=== PATIENT | female | born 1940 | race Hispanic/Latino ===

== ENCOUNTER 2016-06-08 10:18 | Outpatient (CLI) | payer MEDICARE ==
[2016-06-08] MEDS ORDERED: NACL ONE (11:11)
[2016-06-08 11:26] LABS: Blood Urea Nitrogen 20 mg/dL (7-17)
--- NOTE | 2016-06-08 14:26 | Cat Scan Report ---
CT abdomen and pelvis with and without contrast. Transverse images are obtained from lower chest to the ischium prior to and after intravenous contrast. No oral contrast administered. Sagittal and coronal 2-D reformatted images included. The visualized lungs are unremarkable. There is a small nonreducible hiatus hernia. The abdominal organs are unremarkable. There is a small calculus in the upper pole of the right kidney and a 5 mm calculus contiguous with a 2 mm calculus in the lower pole collecting system. No renal mass and no hydronephrosis. There is mild irregularity of the renal contour laterally consistent with slight scarring. There is a small calculus in the superior left kidney and 2 pole calculi measuring 5 and 7.6 mm respectively. No hydronephrosis. Slightly patulous renal pelvis and proximal ureter. No renal mass but also slight irregularity of the renal contour laterally consistent with scarring. No evidence of ureteral or bladder calculus noted. It is of note however that on the delayed images the right ureter contains contrast but not the left. There is some contrast mixture in the bladder. The unopacified bowel and mesentery appear normal. The abdominal aorta is normal in size and contour. Diffuse mural atheromatous changes are noted.Sections through the pelvis demonstrate unremarkable reproductive organs. Impressions: 1. Bilateral nonobstructing renal calculi. 2. Bilateral mild renal scarring. 3. Small hiatus hernia.
== END 2016-06-08 10:19 | disposition home or self-care (01) ==
LOC: CT 10:18
PROVIDERS: ATTEND Urology
DX: R31.1 Benign essential microscopic hematuria (principal); K44.9 Diaphragmatic hernia without obstruction or gangrene; N20.0 Calculus of kidney
CPT/HCPCS: 36415; 74178; 82565; 84520; Q9967

== ENCOUNTER 2016-07-29 12:08 | Outpatient (CLI) | payer MEDICARE ==
--- NOTE | 2016-07-29 14:23 | XRay Report ---
ABDOMEN RADIOGRAPHS INDICATION: Calculus of kidney. COMPARISON: 06/08/2016 CT. FINDINGS: Frontal abdominal radiographs demonstrate nonobstructive bowel gas pattern without definite pneumatosis or pneumoperitoneum. Small bilateral renal calculi, known by prior CT, not well identified radiographically. Few vascular calcifications noted in the left upper quadrant and the left hemipelvis. Right hemidiaphragm slightly elevated. Some extrinsic clothing artifacts. Demineralized bones with mild lumbar levoscoliosis apex about L3-L4. CONCLUSION: No acute abdominal radiographic abnormality with bilateral renal calculi known by prior CT not well identified plain radiographically. Thank you for the opportunity to participate in this patient's care.
== END 2016-07-29 12:09 | disposition home or self-care (01) ==
LOC: XRAY 12:08
PROVIDERS: ATTEND Urology
DX: N20.0 Calculus of kidney (principal); J98.6 Disorders of diaphragm; M41.86 Other forms of scoliosis, lumbar region
CPT/HCPCS: 74000

== ENCOUNTER 2016-10-21 19:25 | Emergency (ER) | payer MEDICARE ==
[2016-10-21 20:43] LABS: Bacteria,Urine 1+ /HPF (Negative); Bilirubin,Urine NEG (Negative); Blood,Urine LG (Negative); Ketones,Urine NEG (Negative); Leukocyte Esterase,Urine LG (Negative); Mucus,Urine FEW /HPF; Nitrite,Urine NEG (Negative); Urobilinogen,Urine < 2.0 mg/dL (<2.0)
[2016-10-21] MEDS ORDERED: NACL 0.9% 1000 ML 1,000 ML IV ONE (20:44)
[2016-10-21] MEDS ORDERED: DILAUDID IV ONE ×2 (20:44→22:26)
[2016-10-21] MEDS ORDERED: TORADOL IV ONE (20:44)
[2016-10-21] MEDS ORDERED: ZOFRAN IV ONE (20:44)
--- NOTE | 2016-10-21 20:52 | Emergency Department Report ---
ED Abdominal Pain HPI - General Chief Complaint: Abdominal Pain Stated Complaint: VOMITING, SIDE PAIN Time Seen by Provider: 10/21/16 20:37 Source: patient Mode of arrival: Ambulatory Limitations: No Limitations - History of Present Illness Initial Comments: 76-year-old female with a past medical history diabetes, hypertension and kidney stones requiring lithotripsy presents to the hospital complaining of left flank pain 1 week. Pain is intermittent, rated moderate to severe in intensity, with palpation, no alleviating factors. Patient unable to characterize pain stating "it just hurts". Patient developed multiple episodes of nausea and vomiting today. PMD:: Dr. Julian , urologist: Dr. Lei, history cystoscopy in the past for urinary incontinence. Patient apparently drinks vinegar with water for blood pressure control - Related Data Home Medications Medication Instructions Recorded Confirmed Last Taken Metoprolol [Lopressor TAB] 50 mg PO DAILY 11/19/12 08/05/15 Unknown metFORMIN [Glucophage] 500 mg PO BID 11/19/12 08/05/15 Unknown Previous Rx's Medication Instructions Recorded Last Taken Type HYDROcodone/APAP 5-325 [[place] 1 each PO Q6HR PRN #10 tablet 08/05/15 Unknown Rx 5/325] Ondansetron [Zofran Odt] 4 mg PO Q8H PRN #10 tab.rapdis 08/05/15 Unknown Rx Cephalexin [Keflex] 500 mg PO Q12HR #14 cap 10/22/16 Unknown Rx HYDROcodone/APAP 7.5-325 [[place] 1 each PO Q6HR PRN #20 tablet 10/22/16 Unknown Rx 7.5/325] Ibuprofen [Motrin] 800 mg PO Q8HR PRN #30 tablet 10/22/16 Unknown Rx Ondansetron [Zofran Odt] 4 mg PO Q8HR PRN #20 tab.rapdis 10/22/16 Unknown Rx Allergies Allergy/AdvReac Type Severity Reaction Status Date / Time No Known Allergies Allergy Unverified 11/19/12 14:52 ED Review of Systems ROS: Stated complaint: VOMITING, SIDE PAIN Other details as noted in HPI Comment: All other systems reviewed and negative Other: Constitutional: No fevers chills Eyes: No eye pain visual changes ENT: No ear pain or throat pain Neck: Denies pain Respiratory: Denies cough wheezing shortness of breath Cardiovascular: Denies chest pain, palpitations, syncope GI: As per HPI : Denies dysuria, urinary frequency, or urgency, hematuria Musculoskeletal: Left flank pain Skin: Denies rash, lesions, erythema Neurologic: Denies headache, numbness, weakness Psychiatric: Denies suicidal ideation, hallucinations ED Past Medical Hx - Past Medical History Previous Medical History?: Yes Hx Hypertension: Yes Hx Diabetes: Yes Hx Kidney Stones: Yes - Surgical History Past Surgical History?: Yes Additional Surgical History: left knee replacement 2009. Lithotripsy in the past - Social History Smoking Status: Never Smoker Substance Use Type: None - Medications Home Medications: Home Medications Medication Instructions Recorded Confirmed Last Taken Type Metoprolol [Lopressor TAB] 50 mg PO DAILY 11/19/12 08/05/15 Unknown History metFORMIN [Glucophage] 500 mg PO BID 11/19/12 08/05/15 Unknown History HYDROcodone/APAP 5-325 [[place] 1 each PO Q6HR PRN #10 tablet 08/05/15 Unknown Rx 5/325] Ondansetron [Zofran Odt] 4 mg PO Q8H PRN #10 tab.rapdis 08/05/15 Unknown Rx Cephalexin [Keflex] 500 mg PO Q12HR #14 cap 10/22/16 Unknown Rx HYDROcodone/APAP 7.5-325 [[place] 1 each PO Q6HR PRN #20 tablet 10/22/16 Unknown Rx 7.5/325] Ibuprofen [Motrin] 800 mg PO Q8HR PRN #30 tablet 10/22/16 Unknown Rx Ondansetron [Zofran Odt] 4 mg PO Q8HR PRN #20 tab.rapdis 10/22/16 Unknown Rx ED Physical Exam - General Limitations: No Limitations - Other Other exam information: General: No limitations, patient is alert in no acute distress Head exam: Atraumatic, normocephalic Eyes exam: Normal appearance, pupils equal reactive to light, extraocular movements intact ENT: Moist mucous membrane, normal oropharynx Neck exam: Normal inspection, full range of motion, no meningismus nontender Respiratory exam: Clear to auscultation bilateral, no wheezes, rales, crackles Cardiovascular: Normal rate and rhythm, normal heart sounds Abdomen: Soft, nondistended, and left lateral abdominal tenderness, with normal bowel sounds, no rebound, or guarding Extremity: Full range of motion normal inspection no deformity Back: Normal Inspection, full range of motion, left CVA/flank tenderness Neurologic: Alert, oriented x3, cranial nerves intact, no motor or sensory deficit Psychiatric: normal affect, normal mood Skin: Warm, dry, intact ED Course Vital Signs 10/21/16 10/21/16 10/21/16 19:45 21:18 22:22 Temperature 98.4 F Pulse Rate 83 62 62 Respiratory 18 18 18 Rate Blood Pressure 191/118 Blood Pressure 173/100 166/84 [Left] O2 Sat by Pulse 98 100 100 Oximetry - Reevaluation(s) Reevaluation #1: 10/21/16 21:04 Medications for pain, IV fluids, and nausea ordered 10/22/16 00:43 Pain and BP improved after meds above - Consultations Consultation #1: 10/21/16 23:55 Patient discussed with urologist Dr. Lopez States he can see patient office tomorrow if her pain is controlled she does not have a fever significant leukocytosis. ED Medical Decision Making - Lab Data Result diagrams: 10/21/16 21:04 10/21/16 21:04 Lab Results 10/21/16 10/21/16 10/21/16 Range/Units 20:30 21:04 21:04 WBC 8.3 (4.5-11.0) K/mm3 RBC 4.20 (3.65-5.03) M/mm3 Hgb 11.9 (10.1-14.3) gm/dl Hct 36.3 (30.3-42.9) % MCV 86 (79-97) fl MCH 28 (28-32) pg MCHC 33 (30-34) % RDW 13.9 (13.2-15.2) % Plt Count 134 L (140-440) K/mm3 Lymph % (Auto) 12.5 L (13.4-35.0) % [place] % (Auto) 6.5 (0.0-7.3) % Eos % (Auto) 0.9 (0.0-4.3) % Baso % (Auto) 0.3 (0.0-1.8) % Lymph # 1.0 L (1.2-5.4) K/mm3 [place] # 0.5 (0.0-0.8) K/mm3 Eos # 0.1 (0.0-0.4) K/mm3 Baso # 0.0 (0.0-0.1) K/mm3 Seg Neutrophils % 79.8 H (40.0-70.0) % Seg Neutrophils # 6.6 (1.8-7.7) K/mm3 Sodium 142 (137-145) mmol/L Potassium 3.5 L (3.6-5.0) mmol/L Chloride 102.1 (98-107) mmol/L Carbon Dioxide 24 (22-30) mmol/L Anion Gap 19 mmol/L BUN 20 H (7-17) mg/dL Creatinine 1.0 (0.7-1.2) mg/dL Estimated GFR 54 ml/min BUN/Creatinine Ratio 20.00 % Glucose 230 H (65-100) mg/dL Calcium 8.6 (8.4-10.2) mg/dL Total Bilirubin 0.70 (0.1-1.2) mg/dL AST 15 (5-40) units/L ALT 9 (7-56) units/L Alkaline Phosphatase 89 (35-129) units/L Total Protein 6.9 (6.3-8.2) g/dL Albumin 3.9 (3.9-5) g/dL Albumin/Globulin Ratio 1.3 % Urine Color Yellow (Yellow) Urine Turbidity Cloudy (Clear) Urine pH 5.0 (5.0-7.0) Ur Specific [place] 1.021 (1.003-1.030) Urine Protein 100 mg/dl (Negative) mg/dL Urine Glucose (UA) 50 (Negative) mg/dL Urine Ketones Neg (Negative) mg/dL Urine Blood Lg (Negative) Urine Nitrite Neg (Negative) Urine Bilirubin Neg (Negative) Urine Urobilinogen < 2.0 (<2.0) mg/dL Ur Leukocyte Esterase Lg (Negative) Urine WBC (Auto) 87.0 H (0.0-6.0) /HPF Urine RBC (Auto) 141.0 (0.0-6.0) /HPF U Epithel Cells (Auto) 6.0 (0-13.0) /HPF Urine Bacteria (Auto) 1+ (Negative) /HPF Calcium Oxalate Crystal 1+ Urine Mucus Few /HPF - Radiology Data Radiology results: report reviewed CT abdomen and pelvis noncontrast. 7.7 cm distal left ureteral calculus with moderate hydronephrosis. Multiple additional nonobstructing bilateral renal calculi - Medical Decision Making Patient feeling much better after receiving total 1 of Dilaudid, 1 L normal saline, and 4 Zofran. Pain is controlled. Patient is stable for follow-up with urologist tomorrow - Differential Diagnosis UTI, renal colic, diverticulitis, dissection Critical Care Time: No Critical care attestation.: If time is entered above; I have spent that time in minutes in the direct care of this critically ill patient, excluding procedure time. ED Disposition Clinical Impression: Renal colic on left side, UTI (urinary tract infection) Disposition: TO HOME OR SELFCARE Is pt being admited?: No Does the pt Need Aspirin: No Condition: Stable Instructions: Renal Colic (ED), Urinary Tract Infection in Women (ED) Additional Instructions: Take the medication as prescribed. Go to your urologist office tomorrow for further treatment. Take a copy of the CAT scan provided. Return if symptoms worsen. Prescriptions: Cephalexin [Keflex] 500 mg PO Q12HR #14 cap HYDROcodone/APAP 7.5-325 [[place] 7.5/325] 1 each PO Q6HR PRN #20 tablet PRN Reason: Pain Ibuprofen [Motrin] 800 mg PO Q8HR PRN #30 tablet PRN Reason: Pain Ondansetron [Zofran Odt] 4 mg PO Q8HR PRN #20 tab.rapdis PRN Reason: Nausea And Vomiting Referrals: CLAUDY TYLER MD [Staff Physician] - 10/22/16 Time of Disposition: 00:43
[2016-10-21 21:35] LABS: Basophils % (Auto) 0.3 % (0.0-1.8); Eosinophils % (Auto) 0.9 % (0.0-4.3); Hematocrit 36.3 % (30.3-42.9); Hemoglobin 11.9 gm/dl (10.1-14.3); Mean Corpuscular HGB Conc 33 % (30-34); Mean Corpuscular Hemoglobin 28 pg (28-32); Mean Corpuscular Volume 86 fl (79-97); Platelet Count 134 K/mm3 (140-440); Red Cell Distribution Width 13.9 % (13.2-15.2); White Blood Count 8.3 K/mm3 (4.5-11.0)
[2016-10-21 21:40] LABS: Albumin 3.9 g/dL (3.9-5); Albumin/Globulin Ratio 1.3 %; Bilirubin,Total 0.7 mg/dL (0.1-1.2); Calcium 8.6 mg/dL (8.4-10.2); Chloride 102.1 mmol/L (98-107); Potassium 3.5 mmol/L (3.6-5.0); Total Protein 6.9 g/dL (6.3-8.2)
--- NOTE | 2016-10-21 21:52 | Cat Scan Report ---
FINAL REPORT EXAM: CT ABDOMEN PELVIS WO CON HISTORY: left flank pain, hx of kidney stones TECHNIQUE: CT abdomen and pelvis without contrast PRIORS: None. FINDINGS: No acute abnormality identified in the lung bases. No focal abnormality identified within the liver parenchyma. The spleen demonstrates normal size and attenuation. No pancreatic abnormalities seen. Right kidney demonstrates no evidence for hydronephrosis. There are 5 nonobstructing right renal calculi largest 0.4 centimeters There is moderate to severe left hydronephrosis. Multiple left renal calculi present the largest 0.9 centimeters. Within distal right ureter at the level of the mid pelvis there is a 0.77 centimeter obstructing calculus. The adrenal glands are unremarkable. Abdominal aorta is normal in caliber. No pathologically enlarged lymph nodes are identified. No signs of free fluid or free air No evidence of small bowel dilatation. No evidence of colonic dilatation. No pericolonic inflammatory change seen. IMPRESSION: 0.77 centimeter distal left ureteral calculus with moderate hydronephrosis Multiple additional nonobstructing bilateral renal calculi
[2016-10-21] MEDS ORDERED: ROCEPHIN/NS 1 GM/50 ML 1 GM/50 ML BAG IV ONE (22:24)
[2016-10-22 00:44] VITALS: BP 118/79
== END 2016-10-22 01:17 | disposition home or self-care (01) ==
LOC: ED 19:25
DX: N23 Unspecified renal colic (principal); N39.0 Urinary tract infection, site not specified; I10 Essential (primary) hypertension; E11.9 Type 2 diabetes mellitus without complications
CPT/HCPCS: 36415; 74176; 80053; 81001; 85025; 87086; 96361; 96365; 96375; 96376; 99284; J0696; J1170; J1885; J2405; J7030

== ENCOUNTER 2016-10-27 13:07 | Day surgery (SDC) | payer MEDICARE ==
[~2016-10-27 13:07] MED LIST: ANCEF/STERILE WATER 2 GM/20 ML 2 GM/20 ML SYRINGE IV NR; OMNIPAQUE (300 MG) IV ONE; WATER FOR IRRIG STERILE IR ONE
--- NOTE | 2016-10-27 14:23 | Anesthesia Consultation ---
Anesthesia Consult and Med Hx Date of service: 10/27/16 - Airway ROM Head & Neck: Adequate Mental/Hyoid Distance: Adequate Mallampati Class: Class II Intubation Access Assessment: Probably Good - Pulmonary Exam CTA: Yes - Cardiac Exam Cardiac Exam: RRR - Pre-Operative Health Status ASA Pre-Surgery Classification: ASA3 Proposed Anesthetic Plan: General - Cardiovascular System Hx Hypertension: Yes - Endocrine Hx Renal Disease: Yes (stones) Hx Insulin Dependent Diabetes: Yes
--- NOTE | 2016-10-27 14:25 | Anesthesia Day of Surgery ---
Anesthesia Day of Surgery - Day of Surgery Patient Examined: Yes Patient H&P Reviewed: Yes Patient is NPO: Yes Beta Blockers: Yes (last dose 3 days ago. Pulse 65)
[2016-10-27] MEDS ORDERED: NACL 0.9% 1000 ML 1,000 ML IV SCH (15:00)
[2016-10-27] MEDS ORDERED: ZOFRAN IV NR (15:00)
[2016-10-27] MEDS ORDERED: PEPCID IV NR (15:00)
[2016-10-27] MEDS ORDERED: NACL BACTERIOSTATIC INFILTRATI ONE (15:03)
[2016-10-27] MEDS ORDERED: DIPRIVAN 10 MG/ML IV ONE (16:00)
[2016-10-27] MEDS ORDERED: SUBLIMAZE ONE (16:00)
[2016-10-27] MEDS ORDERED: PROAIR IH ONE (16:47)
[2016-10-27] MEDS ORDERED: WATER FOR IRRIG STERILE IR ONE (16:56)
[2016-10-27] MEDS ORDERED: NEO SYNEPHRINE/NS Syringe(OR USE) IV ONE (17:00)
[2016-10-27] MEDS ORDERED: OMNIPAQUE (300 MG) IV ONE (17:03)
[2016-10-27] MEDS ORDERED: ROBINUL ONE (17:10)
[2016-10-27] MEDS ORDERED: DECADRON ONE (17:11)
[2016-10-27] MEDS ORDERED: ZOFRAN ONE (17:11)
--- NOTE | 2016-10-27 17:18 | Short Stay Summary ---
Short Stay Documentation Date of service: 10/27/16 - History H&P: obtained from office - Allergies and Medications Current Medications: Allergies No Known Allergies Allergy (Unverified 11/19/12 14:52) Home Medications Medication Instructions Recorded Confirmed Last Taken Type Metoprolol [Lopressor TAB] 50 mg PO DAILY 11/19/12 10/27/16 10/24/16 History HYDROcodone/APAP 7.5-325 [[place] 1 each PO Q6HR PRN #20 tablet 10/22/16 10/27/16 10/26/16 Rx 7.5/325] Ibuprofen [Motrin] 800 mg PO Q8HR PRN #30 tablet 10/22/16 10/27/16 10/26/16 Rx Ondansetron [Zofran Odt] 4 mg PO Q8HR PRN #20 tab.rapdis 10/22/16 10/27/1610/26 Rx Ciprofloxacin HCl [Ciprofloxacin 500 mg PO BID 10/27/16 10/27/16 10/26/16 History TAB] Insulin Detemir [Levemir Flextouch] 12 units SUB-Q DAILY 10/27/16 10/27/1610/26 History Active Medications Famotidine (Pepcid) 20 mg IV PREOP NR Stop: 10/27/16 23:59 Last Admin: 10/27/16 15:17 Dose: 20 mg Sodium Chloride (Nacl 0.9% 1000 Ml) 1,000 mls @ 125 mls/hr IV DIRECT HUSAM Last Admin: 10/27/16 15:10 Dose: 125 mls/hr Ondansetron HCl (Zofran) 4 mg IV PREOP NR Stop: 10/27/16 23:59 Last Admin: 10/27/16 15:19 Dose: 4 mg - Brief post op/procedure progress note Date of procedure: 10/27/16 Pre-op diagnosis: left ureteral stone Post-op diagnosis: other (bladder stone) Procedure: cysto, rpg, left ureteroscopy, stent external string Anesthesia: GETA Surgeon: BRANDI KRAUSE Estimated blood loss: none Pathology: none Condition: stable - Hospital course Hospital course: cipro,norco,zofran, post op info on chart give stone to pt - Disposition Condition at discharge: Stable Disposition: DC-01 TO HOME OR SELFCARE Short Stay Discharge Plan Follow up with: PRIMARY CARE, [Primary Care Provider] - 7 Days
--- NOTE | 2016-10-27 18:07 | Post Anesthesia Evaluation ---
- Post Anesthesia Evaluation Patient Participated: Yes Airway Patent: Yes Stable Respiratory Function: Yes Temp > 96.8F: Yes Pain Manageable: Yes Adequeate Hydration: Yes Anesthesia Complications: No
--- NOTE | 2016-10-27 21:13 | Operative Report ---
PREOPERATIVE DIAGNOSIS: Left 7 mm distal ureteral stone. POSTOPERATIVE DIAGNOSIS: Left 7 mm distal ureteral stone, bladder stone. PROCEDURE: Cystoscopy, bilateral retrograde pyelograms, left ureteroscopy, double-J stent (6 German 24 cm with an external string), removal of bladder stones. SURGEON: Damian Cornejo MD ANESTHESIA: General. ESTIMATED BLOOD LOSS: Minimal. FLUIDS: Crystalloid. COMPLICATIONS: No complications. INDICATIONS: This patient is a 76-year-old female who was originally seen by Dr. Freeman, however, I saw her in his absence. She has CT of abdomen and pelvis on 10/21/2016, which revealed a 7 mm distal stone. She presents now for surgical intervention. She also gives a history of bilateral pelvic pain. DESCRIPTION OF PROCEDURE: The patient was taken to the operative suite, placed in a supine position. After adequate general anesthesia, placed in a dorsal lithotomy position, prepped and draped in a sterile fashion. Pancystourethroscopy was performed with a 22 German Storz cystoscope. There were obvious fragments in the bladder, two biggest fragments were removed with the alligator grasper. The stones were removed, one will be given to the patient and I will keep one. Bilateral retrograde pyelograms, right side normal, left side still some narrowing of the distal ureter. Two 0.05 Glidewires were placed , left collecting system. Ureteroscopy up to the renal pelvis. No stone; however, there was some edema. A 6-German 24 cm double-J stent with an external string was left indwelling. The patient was extubated and taken to recovery room. She will go home on [place], [place], [place], and follow up in the office. JOB# [id number] [facility]/[place]
[2016-10-27 23:33] VITALS: BP 142/75
--- NOTE | 2016-10-28 09:38 | Fluoroscopy Report ---
Retrograde pyelogram: Left ureteral calculus. The noncontrasted images fail to identify any urinary tract calculus. Injection of contrast into the Juan right system demonstrates unremarkable ureter and intrarenal collecting system. Injection on the left is likewise unremarkable. A ureteroscope was introduced with wire is passed into the renal pelvis. A left internal stent was left in place.
== END 2016-10-27 18:45 | disposition home or self-care (01) ==
LOC: OR 13:07
PROVIDERS: ATTEND Urology
DX: N20.1 Calculus of ureter (principal); N21.0 Calculus in bladder; N13.5 Crossing vessel and stricture of ureter without hydronephrosis; E11.9 Type 2 diabetes mellitus without complications; I10 Essential (primary) hypertension; Z79.899 Other long term (current) drug therapy; Z79.4 Long term (current) use of insulin
CPT/HCPCS: 52318; 52332; 74420; 82962; A4217; C1758; C1769; C2617; J0690; J2370; J2405; J2704; J3010; J7030; Q9967; J1100

== ENCOUNTER 2018-03-22 16:47 | Inpatient (IN) | payer MEDICARE ==
[2018-03-22] MEDS ORDERED: SUBLIMAZE IV ONE (17:56)
[2018-03-22] MEDS ORDERED: NACL 0.9% 500 ML 500 ML IV ONE (17:56)
--- NOTE | 2018-03-22 17:58 | Emergency Department Report ---
ED General Adult HPI - General Chief complaint: Extremity Injury, Lower Stated complaint: LT LEG PAIN/FALL Time Seen by Provider: 03/22/18 17:48 Source: patient, EMS (verbal report received from EMS.ems notes not available at time of chart dictation), RN notes reviewed Mode of arrival: Stretcher Limitations: Physical Limitation - History of Present Illness Initial comments: This is a 78-year-old female who is not known to this provider previously. Her past history includes hypertension and diabetes. Patient reports being in her usual state of health, when she got dizzy, and fell onto her left hip. She did not hit her head, she did not hit her neck. Prior to the event, she reports no pain. She denies DVT, pulmonary embolus risk factors. She has left-sided femur pain. Her pain is sharp and aching, does not radiate anywhere, increases with palpation, and decreases with rest. -: Sudden Location: left, lower extremity Radiation: non-radiation Quality: sharp Improves with: rest Worsens with: movement Associated Symptoms: malaise, weakness. denies: confusion, chest pain, cough, diaphoresis, fever/chills, headaches, loss of appetite, nausea/vomiting, rash, seizure, shortness of breath, syncope - Related Data Home Medications Medication Instructions Recorded Confirmed Last Taken Metoprolol [Lopressor TAB] 50 mg PO DAILY 11/19/12 03/22/18 10/24/16 Insulin Detemir [Levemir Flextouch] 12 units SUB-Q HS 10/27/16 03/22/18 10/26/16 Previous Rx's Medication Instructions Recorded Last Taken Type HYDROcodone/APAP 7.5-325 [[place] 1 each PO Q6HR PRN #20 tablet 10/22/16 10/26/16 Rx 7.5/325] traMADol [Ultram] 50 mg PO Q6HR PRN #20 tablet 01/31/18 Unknown Rx Allergies Allergy/AdvReac Type Severity Reaction Status Date / Time No Known Allergies Allergy Unverified 11/19/12 14:52 ED Review of Systems ROS: Stated complaint: LT LEG PAIN/FALL Other details as noted in HPI Constitutional: malaise, other Eyes: denies: eye discharge, vision change ENT: denies: epistaxis Respiratory: denies: cough Cardiovascular: other (dizziness). denies: chest pain Gastrointestinal: denies: vomiting Musculoskeletal: arthralgia, myalgia Skin: denies: lesions Neurological: weakness Psychiatric: anxiety ED Past Medical Hx - Past Medical History Hx Hypertension: Yes Hx Diabetes: Yes Hx Renal Disease: Yes (stones) Hx Arthritis: Yes Hx Kidney Stones: Yes - Surgical History Additional Surgical History: left knee replacement 2009. Lithotripsy in the past - Social History Smoking Status: Never Smoker Substance Use Type: None - Medications Home Medications: Home Medications Medication Instructions Recorded Confirmed Last Taken Type Metoprolol [Lopressor TAB] 50 mg PO DAILY 11/19/12 03/22/18 10/24/16 History HYDROcodone/APAP 7.5-325 [[place] 1 each PO Q6HR PRN #20 tablet 10/22/16 03/22/18 10/26/16 Rx 7.5/325] Insulin Detemir [Levemir Flextouch] 12 units SUB-Q HS 10/27/16 03/22/18 10/26/16 History traMADol [Ultram] 50 mg PO Q6HR PRN #20 tablet 01/31/18 03/22/18 Unknown Rx ED Physical Exam - General Limitations: Physical Limitation General appearance: alert, anxious, in distress - Head Head exam: Present: atraumatic, normocephalic - Eye Eye exam: Present: normal appearance, PERRL, EOMI, other (visual acuity intact to finger counting, color perception, reading at a close distance). Absent: nystagmus - ENT ENT exam: Present: normal exam, normal orophraynx, mucous membranes moist, normal external ear exam - Neck Neck exam: Present: normal inspection, full ROM. Absent: tenderness, meningismus - Respiratory Respiratory exam: Present: normal lung sounds bilaterally. Absent: respiratory distress - Cardiovascular Cardiovascular Exam: Present: regular rate, normal rhythm, normal heart sounds. Absent: bradycardia, tachycardia, irregular rhythm, systolic murmur, diastolic murmur, rubs, gallop - GI/Abdominal GI/Abdominal exam: Present: soft. Absent: distended, tenderness, guarding, rebound, rigid, pulsatile mass - Extremities Exam Extremities exam: Present: pedal edema, other (2+ pulses in the bilateral upper extremities and lower extremities. The pelvis is stable. There is proximal left femur tenderness. The left lower extremity is shortened and externally rotated. Full range of motion in the bilateral ankles. Left knee range of motion limited secondary to left hip pain. There is no knee tenderness.). Absent: full ROM, tenderness - Back Exam Back exam: Present: normal inspection, full ROM. Absent: paraspinal tenderness, vertebral tenderness - Neurological Exam Neurological exam: Present: alert, oriented X3, other (Extraocular movements intact. Tongue midline. No facial droop. Facial sensation intact to light to uch in the V1, V2, V3 distribution bilaterally. 5 and 5 strength in 4 extremities.. Sensation is intact to light touch in 4 extremities.). Absent: motor sensory deficit - Psychiatric Psychiatric exam: Present: anxious - Skin Skin exam: Present: warm, dry, intact, normal color. Absent: rash ED Course Vital Signs 03/22/18 03/22/18 03/22/18 18:01 19:10 19:42 Temperature 98.1 F Pulse Rate 78 104 H Respiratory 17 18 16 Rate Blood Pressure 229/116 Blood Pressure 203/103 [Left] O2 Sat by Pulse 98 100 Oximetry 03/22/18 03/22/18 03/22/18 19:46 20:16 20:46 Temperature Pulse Rate 103 H 118 H 105 H Respiratory 14 18 16 Rate Blood Pressure 203/103 189/80 180/91 Blood Pressure [Left] O2 Sat by Pulse Oximetry 03/22/18 03/22/18 03/22/18 21:00 21:16 21:20 Temperature Pulse Rate 106 H 118 H Respiratory 12 22 Rate Blood Pressure 165/92 165/92 165/92 Blood Pressure [Left] O2 Sat by Pulse Oximetry - Reevaluation(s) Reevaluation #1: 03/22/18 20:07 Differential diagnosis, including but not limited to: Orthostasis, vagal event, dehydration, pneumonia, urinary tract infection, structural cardiac disease, transient ischemic attack, left femur fracture. Assessment and plan: 78-year-old female with radiographic evidence of proximal left femur fracture, distally neurovascularly intact, with no reported history of head or neck trauma, with transient "dizziness." Has a [place] Coma Scale of 15. Has an NIH score of 0. Has no midline cervical spine tenderness. Laboratory studies show mild hypomagnesemia. We will treat the patient's pain aggressively with intravenous fentanyl, followed by ketamine, 0.3 mg/kg IV. Discussed with orthopedics, Dr. Javed, who agrees to follow for left femur fracture. Case is presented to hospital medicine nurse practitioner, who has accepted the patient on behalf of the hospital physician, Dr. Gorge Whitmore Elevated blood pressure reviewed and appreciated, likely secondary to pain. Hyperglycemia also appreciated, I will defer to the inpatient team to further evaluate and manage these. 03/22/18 21:23 Reevaluation #2: 03/22/18 22:[address] scan of the brain is negative for acute disease. ED Medical Decision Making - Lab Data Result diagrams: 03/22/18 18:05 03/22/18 18:05 Vital Signs 03/22/18 03/22/18 03/22/18 18:01 19:10 19:42 Temperature 98.1 F Pulse Rate 78 104 H Respiratory 17 18 16 Rate Blood Pressure 229/116 Blood Pressure 203/103 [Left] O2 Sat by Pulse 98 100 Oximetry - EKG Data -: EKG Interpreted by Me Rate: tachycardia - EKG Data 03/22/18 20:06 Sinus tachycardia, 104 bpm, borderline left axis deviation, premature ventricular contraction, QTC prolonged, motion artifact, abnormal EKG, not consistent with an ST elevation myocardial infarction. - Radiology Data Radiology results: pending, image reviewed interpreted by me: X-ray of the chest is unremarkable. X-ray of the left femur, and pelvis demonstrated proximal comminuted and impacted and displaced left femur fracture. Pelvic ring appears to be unremarkable. Critical care attestation.: If time is entered above; I have spent that time in minutes in the direct care of this critically ill patient, excluding procedure time. ED Disposition Clinical Impression: Hypomagnesemia, Dizziness Femur fracture, left Qualifiers: Encounter type: initial encounter Femur location: unspecified portion of femur Fracture type: closed Disposition: -09 OP ADMIT IP TO THIS HOSP Is pt being admited?: Yes Does the pt Need Aspirin: No (aspirin will be held given underlying femur fracture, and uncertain operative plan of orthopedic team.) Condition: Fair
[2018-03-22 18:23] LABS: Basophils % (Auto) 0.2 % (0.0-1.8); Eosinophils % (Auto) 0.6 % (0.0-4.3); Hematocrit 38.3 % (30.3-42.9); Hemoglobin 12.9 gm/dl (10.1-14.3); Lymphocytes # (Auto) 0.9 K/mm3 (1.2-5.4); Lymphocytes % (Auto) 11.5 % (13.4-35.0); Mean Corpuscular HGB Conc 34 % (30-34); Mean Corpuscular Volume 86 fl (79-97); Monocytes # (Auto) 0.4 K/mm3 (0.0-0.8); Monocytes % (Auto) 4.8 % (0.0-7.3); Platelet Count 171 K/mm3 (140-440); Red Blood Count 4.47 M/mm3 (3.65-5.03); Red Cell Distribution Width 13.6 % (13.2-15.2)
[2018-03-22 18:34] LABS: INR 1.02 (0.87-1.13)
[2018-03-22 18:48] LABS: Creatine Kinase MB 1.8 ng/mL (0.0-4.0)
[2018-03-22 18:51] LABS: Alanine Aminotransferase 9 units/L (7-56); Albumin 4.2 g/dL (3.9-5); BUN/Creatinine Ratio 21; Blood Urea Nitrogen 17 mg/dL (7-17); Calcium 9.2 mg/dL (8.4-10.2); Hemolysis Index 23
[2018-03-22] MEDS ORDERED: MAGNESIUM SULFATE 2GM/50ML 2 GM/50 ML BAG IV ONE (18:59)
[2018-03-22] MEDS ORDERED: KETAMINE HCL IV ONE ×2 (20:00→20:10)
--- NOTE | 2018-03-22 20:45 | History and Physical Report ---
History of Present Illness Chief complaint: I fell and hurt my hip History of present illness: 78 YO Female with HTN, DM,, OA, Obesity presents to ED for evaluation. Pt stats that she was in her usual state of health, when she got dizzy, and lost her balance and subsequently fell onto her left hip. Pt states that she felt immediate pain and was unable to stand. Pt states that pain is 10/10 and localized to the left hip. EMS notified, and patient ransported to [facility] for further care and evaluation. Pt seen and evaluated in ED. Pt found to have Left Hip Fracture. Ortho Surgery consulted in ED. Patient pending surgical intervention. Pt denies fever, chills, CP, Palpitations, NVD, Head trauma, vertigo, seizure, loss of consciousness, weakness, slurred speech, blurred vision, vision loss, or recent ill contacts. Pt admitted to surgical floor. Past History Past Medical History: arthritis, diabetes, hypertension Past Surgical History: total knee replacement Social history: , lives with family. denies: smoking, alcohol abuse, prescription drug abuse Family history: diabetes, hypertension Medications and Allergies Allergies Allergy/AdvReac Type Severity Reaction Status Date / Time No Known Allergies Allergy Unverified 11/19/12 14:52 Home Medications Medication Instructions Recorded Confirmed Last Taken Type Metoprolol [Lopressor TAB] 50 mg PO DAILY 11/19/12 03/22/18 10/24/16 History HYDROcodone/APAP 7.5-325 [[place] 1 each PO Q6HR PRN #20 tablet 10/22/16 03/22/18 10/26/16 Rx 7.5/325] Insulin Detemir [Levemir Flextouch] 12 units SUB-Q HS 10/27/16 03/22/18 10/26/16 History traMADol [Ultram] 50 mg PO Q6HR PRN #20 tablet 01/31/18 03/22/18 Unknown Rx Review of Systems Constitutional: no weight loss, no weight gain, no fever Ears, nose, mouth and throat: no ear pain, no ear discharge, no tinnitis, no decreased hearing, no nasal congestion Breasts: no change in shape, no swelling, no mass Cardiovascular: no chest pain, no orthopnea, no palpitations, no rapid/irregular heart beat, no edema Respiratory: no cough, no cough with sputum, no excessive sputum, no hemoptysis Gastrointestinal: constipation, no nausea, no vomiting, no diarrhea Genitourinary Female: no pelvic pain, no flank pain, no menorrhagia, no dysuria Rectal: no pain, no incontinence, no bleeding Musculoskeletal: shooting leg pain, no neck stiffness, no neck pain, no shooting arm pain, no arm numbness/tingling Integumentary: no rash, no pruritis, no redness, no sores Neurological: no head injury, no transient paralysis, no paralysis, no weakness, no parathesias, no vertigo, no headaches, no migraines Psychiatric: no memory loss, no change in sleep habits, no sleep disturbances, no insomnia, no hypersomnia, no difficulties concentrating Endocrine: no cold intolerance, no heat intolerance, no polyphagia, no excessive thirst, no polydipsia Hematologic/Lymphatic: no easy bruising, no easy bleeding Allergic/Immunologic: no urticaria, no allergic rhinitis, no wheezing Exam - Constitutional Vitals: Temp Pulse Resp BP Pulse Ox 98.1 F 104 H 16 203/103 100 03/22/18 18:01 03/22/18 19:42 03/22/18 19:42 03/22/18 19:42 03/22/18 19:10 General appearance: Present: mild distress, obese - EENT Eyes: Present: PERRL ENT: hearing intact, clear oral mucosa - Neck Neck: Present: supple, normal ROM - Respiratory Respiratory effort: normal Respiratory: bilateral: CTA - Cardiovascular Heart Sounds: Present: S1 & S2. Absent: rub, click - Extremities Extremities: pulses symmetrical, No edema Peripheral Pulses: within normal limits - Abdominal General gastrointestinal: Present: soft, non-tender, non-distended, normal bowel sounds Female genitourinary: Present: normal - Integumentary Integumentary: Present: clear, warm, dry - Musculoskeletal Musculoskeletal: gait normal, strength equal bilaterally - Psychiatric Psychiatric: appropriate mood/affect, intact judgment & insight - Neurologic Neurologic: CNII-XII intact, no focal deficits, moves all extremities, no gait normal Results - Labs CBC & Chem 7: 03/22/18 18:05 03/22/18 18:05 Labs: Abnormal lab results 03/22/18 03/22/18 03/22/18 Range/Units 18:05 18:05 18:05 Lymph % (Auto) 11.5 L (13.4-35.0) % Lymph # 0.9 L (1.2-5.4) K/mm3 Seg Neutrophils % 82.9 H (40.0-70.0) % Sodium 134 L (137-145) mmol/L Chloride 93.5 L (98-107) mmol/L Glucose 316 H (65-100) mg/dL POC Glucose (70-105) Magnesium 1.60 L (1.7-2.3) mg/dL 03/22/18 Range/Units 20:27 Lymph % (Auto) (13.4-35.0) % Lymph # (1.2-5.4) K/mm3 Seg Neutrophils % (40.0-70.0) % Sodium (137-145) mmol/L Chloride (98-107) mmol/L Glucose (65-100) mg/dL POC Glucose 298 H (70-105) Magnesium (1.7-2.3) mg/dL Assessment and Plan - Patient Problems (1) Femur fracture, left Current Visit: Yes Status: Acute Qualifiers: Encounter type: initial encounter Femur location: lesser trochanter Fracture type: closed Plan to address problem: Ortho consulted, Pain control, incentive spirometry, early ambulation, Pending surgical intervention in AM. (2) HTN (hypertension) Current Visit: Yes Status: Acute Qualifiers: Hypertension type: essential hypertension Qualified Code(s): I10 - Essential (primary) hypertension Plan to address problem: Monitor bp q shift, continue medical management (3) Diabetes Current Visit: Yes Status: Acute Plan to address problem: ADA diet, insulin, accu check (4) DVT prophylaxis Current Visit: Yes Status: Acute
[2018-03-22] MEDS ORDERED: SODIUM CHLORIDE FLUSH SYRINGE 10 ML IV PRN (20:46)
[2018-03-22] MEDS ORDERED: TYLENOL PO PRN (20:46)
[2018-03-22] MEDS ORDERED: ZOFRAN IV PRN (20:46)
[2018-03-22] MEDS ORDERED: MORPHINE IV PRN (20:46)
[2018-03-22] MEDS ORDERED: IBUPROFEN PO PRN (20:48)
[2018-03-22] MEDS ORDERED: APRESOLINE IV PRN (20:48)
--- NOTE | 2018-03-22 20:50 | XRay Report ---
FINAL REPORT PROCEDURE: Chest. TECHNIQUE: Chest radiograph anteroposterior view. CPT 01703 HISTORY: Dizziness. COMPARISON: Chest 01/31/2018. FINDINGS: The heart size is borderline. There is calcification in the aortic arch. The lungs are clear and well expanded. There are no pleural effusions. The soft tissues and regional skeleton are unremarkable. IMPRESSION: No evidence of acute disease.
--- NOTE | 2018-03-22 20:50 | XRay Report ---
FINAL REPORT EXAM: XR PELVIS 1-2V HISTORY: left leg pain fx TECHNIQUE: PRIORS: None. FINDINGS: There is acute traumatic intertrochanteric fracture of the left hip. There is a displaced lesser tube rosity fragment. There is apex superior angulation. Bony pelvis appears intact. Right hip demonstrate s no evidence for fracture or dislocation IMPRESSION: Acute intertrochanteric left hip fracture
--- NOTE | 2018-03-22 20:52 | XRay Report ---
FINAL REPORT EXAM: XR FEMUR 2+V LT HISTORY: left leg pain TECHNIQUE: Left femur AP and lateral views PRIORS: None. FINDINGS: There is acute traumatic intertrochanteric fracture of the left hip. There is apex superior angulatio n and displacement. There is a displaced lesser tuberosity fragment. Remainder of the femur demonstrates no acute changes. There is a left knee prosthesis. IMPRESSION: Acute intertrochanteric left hip fracture
[2018-03-22] MEDS ORDERED: APRESOLINE ONE (21:15)
[2018-03-22 21:56] LABS: Partial Thromboplastin Time 32.7 Sec. (24.2-36.6); Thrombin Time 18.5 Sec. (15.1-19.6)
[2018-03-22] MEDS ORDERED: LANTUS SUB-Q SCH (22:00)
[2018-03-22] MEDS ORDERED: INSULIN DETEMIR 12 UNIT SUB-Q SCH (22:00)
--- NOTE | 2018-03-22 22:02 | Cat Scan Report ---
FINAL REPORT EXAM: CT HEAD/BRAIN WO CON HISTORY: Stroke symptoms TECHNIQUE: CT head without contrast PRIORS: None. FINDINGS: No acute intra-axial or extra-axial hemorrhage is identified. There is no evidence of midline shift or mass effect. The ventricles and sulci are within normal limits. Lange-white matter differentiation is intact. No acute parenchymal abnormalities seen. There are patchy and confluent hypodensities wit hin the supratentorial white matter. Bony calvarium is grossly intact. Visualized portions of the mastoids and paranasal sinuses are unre markable. IMPRESSION: Chronic small vessel white matter ischemic change
[2018-03-22] MEDS: DILAUDID IV PRN (22:52)
[2018-03-22] MEDS: SODIUM CHLORIDE FLUSH SYRINGE 10 ML IV SCH (22:53)
[2018-03-23] MEDS ORDERED: ANCEF/NS 1 GM/50 ML 1 GM/50 ML BAG IV SCH (04:00)
[2018-03-23] MEDS: DILAUDID IV PRN ×2 (04:28→10:14)
[2018-03-23 06:45] LABS: Bacteria,Urine 2+ /HPF (Negative); Bilirubin,Urine NEG (Negative); Blood,Urine SM (Negative); Color,Urine Yellow (Yellow); Mucus,Urine FEW /HPF; Protein,Urine <15 mg/dL mg/dL (Negative); Urobilinogen,Urine < 2.0 mg/dL (<2.0)
[2018-03-23] MEDS: LOPRESSOR PO SCH (10:23)
[2018-03-23] MEDS: SODIUM CHLORIDE FLUSH SYRINGE 10 ML IV SCH (10:23)
[2018-03-23] MEDS ORDERED: DILAUDID IM ONE (11:00)
[2018-03-23] MEDS ORDERED: D50W (25GM) Syringe IV PRN (11:34)
--- NOTE | 2018-03-23 11:37 | Progress Note ---
Assessment and Plan Assessment and plan: 78F who got dizzy and fell, broke her left hip, she denied LOC Diagnosis Femur fracture, left HTN (hypertension) Diabetes with Hyperglycemia UTI PLAN -to OR today optimize meds for chronic conditions optimise insulins Rocephin, get urine culture DVT prophylaxis; chemical History Interval history: Complaining of severe left hip pain Review of systems Constitutional: No fevers, no malaise, no joint pains CVS: No chest pain, no orthopnea, no dyspnea on exertion, no pedal edema GI: No abdominal pain, no diarrhea, no vomiting, no constipation Respiratory: No shortness of breath, no wheezing, no coughing Hospitalist Physical - Physical exam Narrative exam: General.: Appears well, no distress, nontoxic HEENT: Moist mucous membranes, extraocular muscles intact, no lymphadenopathy Neck: supple Cardiac: S1-S2 heard Lungs: clear to auscultation bilaterally Abdomen: soft , nontender, nondistended, bowel sounds positive Extremities: no edema clubbing or cyanosis Skin: no rash or lesions Neurologic: no gross focal deficits Psych: calm, and cooperative - Constitutional Vitals: Temp Pulse Resp BP Pulse Ox 98.9 F 95 H 20 138/61 97 03/23/18 07:21 03/23/18 07:21 03/23/18 11:20 03/23/18 07:00 03/23/18 07:21 General appearance: Present: mild distress, obese Results - Labs CBC & Chem 7: 03/22/18 18:05 03/22/18 18:05 Labs: Laboratory Last Values WBC 8.2 K/mm3 (4.5-11.0) 03/22/18 18:05 RBC 4.47 M/mm3 (3.65-5.03) 03/22/18 18:05 Hgb 12.9 gm/dl (10.1-14.3) 03/22/18 18:05 Hct 38.3 % (30.3-42.9) 03/22/18 18:05 MCV 86 fl (79-97) 03/22/18 18:05 MCH 29 pg (28-32) 03/22/18 18:05 MCHC 34 % (30-34) 03/22/18 18:05 RDW 13.6 % (13.2-15.2) 03/22/18 18:05 Plt Count 171 K/mm3 (140-440) 03/22/18 18:05 Lymph % (Auto) 11.5 % (13.4-35.0) L 03/22/18 18:05 [place] % (Auto) 4.8 % (0.0-7.3) 03/22/18 18:05 Eos % (Auto) 0.6 % (0.0-4.3) 03/22/18 18:05 Baso % (Auto) 0.2 % (0.0-1.8) 03/22/18 18:05 Lymph # 0.9 K/mm3 (1.2-5.4) L 03/22/18 18:05 [place] # 0.4 K/mm3 (0.0-0.8) 03/22/18 18:05 Eos # 0.0 K/mm3 (0.0-0.4) 03/22/18 18:05 Baso # 0.0 K/mm3 (0.0-0.1) 03/22/18 18:05 Seg Neutrophils % 82.9 % (40.0-70.0) H 03/22/18 18:05 Seg Neutrophils # 6.8 K/mm3 (1.8-7.7) 03/22/18 18:05 PT 13.8 Sec. (12.2-14.9) 03/22/18 18:05 INR 1.02 (0.87-1.13) 03/22/18 18:05 APTT 32.7 Sec. (24.2-36.6) 03/22/18 18:05 Thrombin Time 18.5 Sec. (15.1-19.6) 03/22/18 18:05 Sodium 134 mmol/L (137-145) L 03/22/18 18:05 Potassium 3.8 mmol/L (3.6-5.0) 03/22/18 18:05 Chloride 93.5 mmol/L (98-107) L 03/22/18 18:05 Carbon Dioxide 24 mmol/L (22-30) 03/22/18 18:05 Anion Gap 20 mmol/L 03/22/18 18:05 BUN 17 mg/dL (7-17) 03/22/18 18:05 Creatinine 0.8 mg/dL (0.7-1.2) 03/22/18 18:05 Estimated GFR > 60 ml/min 03/22/18 18:05 BUN/Creatinine Ratio 21 % 03/22/18 18:05 Glucose 316 mg/dL (65-100) H 03/22/18 18:05 POC Glucose 327 (70-105) H 03/23/18 08:58 Calcium 9.2 mg/dL (8.4-10.2) 03/22/18 18:05 Magnesium 1.60 mg/dL (1.7-2.3) L 03/22/18 18:05 Total Bilirubin 0.60 mg/dL (0.1-1.2) 03/22/18 18:05 AST 14 units/L (5-40) 03/22/18 18:05 ALT 9 units/L (7-56) 03/22/18 18:05 Alkaline Phosphatase 111 units/L (35-129) 03/22/18 18:05 Total Creatine Kinase 67 units/L (30-135) 03/22/18 18:05 CK-MB (CK-2) 1.8 ng/mL (0.0-4.0) 03/22/18 18:05 CK-MB (CK-2) Rel Index 2.6 (0-4) 03/22/18 18:05 Troponin T < 0.010 ng/mL (0.00-0.029) 03/22/18 18:05 Total Protein 7.7 g/dL (6.3-8.2) 03/22/18 18:05 Albumin 4.2 g/dL (3.9-5) 03/22/18 18:05 Albumin/Globulin Ratio 1.2 % 03/22/18 18:05 TSH 1.960 mlU/mL (0.270-4.200) 03/22/18 18:05 Urine Color Yellow (Yellow) 03/23/18 02:50 Urine Turbidity Cloudy (Clear) 03/23/18 02:50 Urine pH 5.0 (5.0-7.0) 03/23/18 02:50 Ur Specific [place] 1.017 (1.003-1.030) 03/23/18 02:50 Urine Protein <15 mg/dl mg/dL (Negative) 03/23/18 02:50 Urine Glucose (UA) >=500 mg/dL (Negative) 03/23/18 02:50 Urine Ketones Tr mg/dL (Negative) 03/23/18 02:50 Urine Blood Sm (Negative) 03/23/18 02:50 Urine Nitrite Pos (Negative) 03/23/18 02:50 Urine Bilirubin Neg (Negative) 03/23/18 02:50 Urine Urobilinogen < 2.0 mg/dL (<2.0) 03/23/18 02:50 Ur Leukocyte Esterase Lg (Negative) 03/23/18 02:50 Urine WBC (Auto) 76.0 /HPF (0.0-6.0) H 03/23/18 02:50 Urine RBC (Auto) 4.0 /HPF (0.0-6.0) 03/23/18 02:50 U Epithel Cells (Auto) < 1.0 /HPF (0-13.0) 03/23/18 02:50 Urine Bacteria (Auto) 2+ /HPF (Negative) 03/23/18 02:50 Urine WBC Clumps 3+ /HPF 03/23/18 02:50 Uric Acid Crystals Few 03/23/18 02:50 Urine Mucus Few /HPF 03/23/18 02:50
[2018-03-23] MEDS ORDERED: NACL 0.9% 1000 ML 1,000 ML ONE (12:18)
[2018-03-23] MEDS: NACL 0.9% 1000 ML 1,000 ML IV SCH (12:20)
--- NOTE | 2018-03-23 13:03 | Anesthesia Consultation ---
Anesthesia Consult and Med Hx Date of service: 03/23/18 - Airway Anesthetic Teeth Evaluation: Poor ROM Head & Neck: Inadequate (mild restricted neck extension) Mental/Hyoid Distance: Adequate Mallampati Class: Class III Intubation Access Assessment: Possibly Difficult (previous easy LMA 4) - Pulmonary Exam CTA: Yes - Cardiac Exam Cardiac Exam: RRR (initial preop VS showed tachycardia but normal rate on physical exam) - Pre-Operative Health Status ASA Pre-Surgery Classification: ASA3 Proposed Anesthetic Plan: General - Pulmonary Hx Smoking: No Hx Asthma: No Hx Respiratory Symptoms: No - Cardiovascular System Hx Hypertension: Yes Hx Heart Attack/AMI: No Hx Percutaneous Transluminal Coronary Angioplasty (PTCA): No Hx Cardia Arrhythmia: No Hx Pacemaker: No Hx Internal Defibrillator: No - Central Nervous System Hx Seizures: No CVA: No Hx Psychiatric Problems: Yes (dementia) - Endocrine Hx Renal Disease: No (stones) Hx Liver Disease: No Hx Insulin Dependent Diabetes: Yes (poorly controlled this admission) Hx Thyroid Disease: No - Additional Comments Anesthesia Medical History Comments: GLF 2/2 "dizziness" now with hip fracture. ST on EKG in ED. No hx CHF, arrhythmia. Discussed SPI vs GETA with patient and family and will proceed with GA. Preop BG 350s. Will treat with insulin prior to surgery.
[2018-03-23] MEDS ORDERED: SUBLIMAZE IV PRN (13:05)
--- NOTE | 2018-03-23 13:05 | Anesthesia Day of Surgery ---
Anesthesia Day of Surgery - Day of Surgery Patient Examined: Yes Patient H&P Reviewed: Yes Patient is NPO: Yes
[2018-03-23] MEDS ORDERED: HumuLIN R IV ONE ×3 (13:37→21:55)
[2018-03-23] MEDS: ROCEPHIN/NS 1 GM/50 ML 1 GM/50 ML BAG IV SCH (14:41)
[2018-03-23] MEDS ORDERED: ANCEF/STERILE WATER 2 GM/20 ML IV NR (15:00)
[2018-03-23] MEDS: HumaLOG SUB-Q SCH (16:46)
[2018-03-23] MEDS ORDERED: HumuLIN R IV SCH (17:13)
[2018-03-23] MEDS ORDERED: MORPHINE IV PRN ×2 (19:00→21:44)
[2018-03-23] MEDS ORDERED: SUBLIMAZE ONE ×2 (19:22→21:24)
[2018-03-23] MEDS ORDERED: DIPRIVAN 10 MG/ML IV ONE (19:22)
[2018-03-23] MEDS ORDERED: DECADRON ONE (19:24)
[2018-03-23] MEDS ORDERED: ZOFRAN ONE (19:24)
[2018-03-23] MEDS ORDERED: XYLOCAINE MPF 2% ONE (19:50)
[2018-03-23] MEDS ORDERED: NEO SYNEPHRINE/NS Syringe(OR USE) IV ONE ×2 (19:50)
[2018-03-23] MEDS ORDERED: NACL 0.9% IR ONE (20:26)
[2018-03-23] MEDS ORDERED: MILK OF MAGNESIA PO PRN (21:44)
[2018-03-23] MEDS ORDERED: AMBIEN PO PRN (21:44)
--- NOTE | 2018-03-23 21:44 | Procedure Note ---
Date of procedure: 03/23/18 Pre-op diagnosis: displaced left intertrochanteric hip fracture Post-op diagnosis: same Procedure: Closed reduction and insertion of intramedullary nail left femur Procedure The patient was brought to the OR placed in the OR table in the supine position following induction and intubation by anesthesia patient was placed onto the hand table supine he was placed in longitudinal traction to both lower extremities traction was placed on the left as well as some abduction and adduction maneuvers AR C-arm fluoroscope was done to assess the fracture reduction. Next the left hip and thigh were prepped and draped in the usual sterile manner. A timeout procedure was done to identify the patient and the correct operative site, A stab wound was made over the left hip area was then taken down sharply through skin and subcutaneous using digital palpation the greater trochanter was palpated next a large awl was used to center the guidewire into the medullary canal, the wire was advanced distally into the metaphyseal region of the distal femur again C-arm image was obtained both in the AP and lateral planes. The medullary canal was overreamed to a 11 mm diameter measuring the length a 320 mm length intramedullary lamonte was chosen. The medullary lamonte was advanced antegrade down the femoral shaft into the distal femur, The helical blade was inserted to a secondary stab wound measuring a length of this helical blade measured 95 mm again C-arm fluoroscopy was used to visualize insertion and placement of this component. With the leg in extension and slight abduction and lateral x-ray was obtained showing the entry site for the distal interlocking screws using a 3.5 mm drill bit. The neurotrauma cortex were drilled and measured a 48 mm screw was selected and placed securely into the distal segment of the IM lamonte. Next the wound was copiously irrigated and was closed in a standard routine fashion. Dressings were applied the patient tolerated the procedure and there were no complications he was sent to postanesthesia recovery in stable condition Anesthesia: MARGE Surgeon: GWENDOLYN SAENZ Counter Stacker: SALONI QURESHI Estimated blood loss: 50-100ml Pathology: none Condition: stable Disposition: PACU
[2018-03-23] MEDS ORDERED: HumuLIN R ONE (21:51)
[2018-03-23] MEDS ORDERED: DILAUDID IV PRN (21:53)
[2018-03-23] MEDS ORDERED: VERSED IV ONE (21:54)
[2018-03-23] MEDS ORDERED: VERSED ONE (21:57)
[2018-03-23] MEDS ORDERED: SODIUM CHLORIDE FLUSH SYRINGE 10 ML IV NR (22:00)
[2018-03-24] MEDS: LOVENOX SUB-Q SCH ×2 (01:01→22:40)
[2018-03-24] MEDS: SODIUM CHLORIDE FLUSH SYRINGE 10 ML IV SCH ×3 (01:04→22:41)
[2018-03-24] MEDS: NACL 0.9% 1000 ML 1,000 ML IV SCH (03:37)
[2018-03-24] MEDS: DILAUDID IV PRN ×2 (03:38→22:40)
--- NOTE | 2018-03-24 04:40 | Post Anesthesia Evaluation ---
- Post Anesthesia Evaluation Patient Participated: Yes Airway Patent: Yes Stable Respiratory Function: Yes Temp > 96.8F: Yes Pain Manageable: Yes Adequeate Hydration: Yes Anesthesia Complications: No
[2018-03-24 05:10] LABS: Hematocrit 27.7 % (30.3-42.9); Hemoglobin 9.2 gm/dl (10.1-14.3)
--- NOTE | 2018-03-24 07:33 | XRay Report ---
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 Findings: AP and lateral fluoroscopic images of the left hip were obtained prior to surgery. The comminuted left IT fracture has been partially reduced since the AP pelvis performed yesterday. There is normal articulation of the left hip. Impression: Left IT hip fracture.
--- NOTE | 2018-03-24 07:34 | XRay Report ---
LEFT HIP, 2 VIEWS History: Left hip fracture, pain. Findings: AP and lateral fluoroscopic images were saved by the orthopedic surgeon. The images demonstrate internal fixation of the comminuted left IT hip fracture with a femoral neck screw and intramedullary lamonte. Alignment is near-anatomic. Please correlate with the procedural report as needed. Impression: Internal fixation of the proximal left femur.
[2018-03-24] MEDS: HumaLOG SUB-Q SCH ×4 (08:23→23:05)
[2018-03-24] MEDS: NORCO 7.5/325 PO PRN ×2 (09:42→17:07)
[2018-03-24] MEDS: LOPRESSOR PO SCH (09:42)
[2018-03-24] MEDS: ROCEPHIN/NS 1 GM/50 ML 1 GM/50 ML BAG IV SCH (09:46)
--- NOTE | 2018-03-24 15:45 | Progress Note ---
Assessment and Plan Status post closed reduction and insertion of intramedullary nail left femur Doing well Begin physical therapy and continue observation Subjective Date of service: 03/24/18 Interval history: States her left hip is feeling much better today Objective Vital signs: Vital Signs - 12hr 03/24/18 03/24/18 07:21 11:42 Temperature 98.3 F 98.3 F Pulse Rate 118 H 72 Respiratory 18 18 Rate Blood Pressure 132/62 114/63 O2 Sat by Pulse 93 96 Oximetry Narrative Exam: Left hip and thigh. Dressings intact minimal drainage noted compartments soft. Neurovascularly intact - Labs CBC & BMP: 03/24/18 04:08 03/22/18 18:05 Labs: Abnormal lab results 03/23/18 03/23/18 03/23/18 Range/Units 17:01 17:04 18:24 Hgb (10.1-14.3) gm/dl POC Hgb 9.9 L (12-17) Hct (30.3-42.9) % POC Hct 29 L (38-51) POC Glucose 262 H 266 H 242 H (70-105) Hemoglobin A1c (4-6) % 03/23/18 03/23/18 03/23/18 Range/Units 21:45 21:47 22:30 Hgb (10.1-14.3) gm/dl POC Hgb (12-17) Hct (30.3-42.9) % POC Hct (38-51) POC Glucose 324 H 296 H 270 H (70-105) Hemoglobin A1c (4-6) % 03/24/18 03/24/18 03/24/18 Range/Units 04:08 04:08 06:14 Hgb 9.2 L D (10.1-14.3) gm/dl POC Hgb (12-17) Hct 27.7 L D (30.3-42.9) % POC Hct (38-51) POC Glucose 226 H (70-105) Hemoglobin A1c 10.9 H (4-6) % 03/24/18 Range/Units 11:45 Hgb (10.1-14.3) gm/dl POC Hgb (12-17) Hct (30.3-42.9) % POC Hct (38-51) POC Glucose 266 H (70-105) Hemoglobin A1c (4-6) %
[2018-03-24] MEDS: LANTUS SUB-Q SCH ×2 (22:51→22:53)
[2018-03-25] MEDS: HumaLOG SUB-Q SCH ×5 (09:26→22:08)
[2018-03-25] MEDS: LOPRESSOR PO SCH (09:27)
[2018-03-25] MEDS: NORCO 7.5/325 PO PRN ×2 (09:28→17:10)
[2018-03-25] MEDS: ROCEPHIN/NS 1 GM/50 ML 1 GM/50 ML BAG IV SCH (12:44)
[2018-03-25] MEDS: SODIUM CHLORIDE FLUSH SYRINGE 10 ML IV SCH ×2 (12:45→22:47)
--- NOTE | 2018-03-25 17:56 | Progress Note ---
Assessment and Plan Assessment and plan: 78F who got dizzy and fell, broke her left hip, she denied LOC Diagnosis Femur fracture, left HTN (hypertension) Diabetes with Hyperglycemia UTI PLAN -Sp external fixation with nailing of hip 03/23 optimize meds for chronic conditions optimise insulins Rocephin, urine culture grew multiple organism DVT prophylaxis; chemical History Interval history: left hip pain is improved Review of systems Constitutional: No fevers, no malaise, no joint pains CVS: No chest pain, no orthopnea, no dyspnea on exertion, no pedal edema GI: No abdominal pain, no diarrhea, no vomiting, no constipation Respiratory: No shortness of breath, no wheezing, no coughing Hospitalist Physical - Physical exam Narrative exam: General.: Appears well, no distress, nontoxic HEENT: Moist mucous membranes, extraocular muscles intact, no lymphadenopathy Neck: supple Cardiac: S1-S2 heard Lungs: clear to auscultation bilaterally Abdomen: soft , nontender, nondistended, bowel sounds positive Extremities: no edema clubbing or cyanosis Skin: no rash or lesions Neurologic: no gross focal deficits Psych: calm, and cooperative - Constitutional Vitals: Temp Pulse Resp BP Pulse Ox 100.1 F H 104 H 20 138/52 97 03/25/18 16:10 03/25/18 16:10 03/25/18 17:10 03/25/18 16:10 03/25/18 16:10 General appearance: Present: mild distress, obese Results - Labs CBC & Chem 7: 03/24/18 04:08 03/22/18 18:05 Labs: Laboratory Last Values WBC 8.2 K/mm3 (4.5-11.0) 03/22/18 18:05 RBC 4.47 M/mm3 (3.65-5.03) 03/22/18 18:05 Hgb 9.2 gm/dl (10.1-14.3) L D 03/24/18 04:08 POC Hgb 9.9 (12-17) L 03/23/18 17:04 Hct 27.7 % (30.3-42.9) L D 03/24/18 04:08 POC Hct 29 (38-51) L 03/23/18 17:04 MCV 86 fl (79-97) 03/22/18 18:05 MCH 29 pg (28-32) 03/22/18 18:05 MCHC 34 % (30-34) 03/22/18 18:05 RDW 13.6 % (13.2-15.2) 03/22/18 18:05 Plt Count 171 K/mm3 (140-440) 03/22/18 18:05 Lymph % (Auto) 11.5 % (13.4-35.0) L 03/22/18 18:05 [place] % (Auto) 4.8 % (0.0-7.3) 03/22/18 18:05 Eos % (Auto) 0.6 % (0.0-4.3) 03/22/18 18:05 Baso % (Auto) 0.2 % (0.0-1.8) 03/22/18 18:05 Lymph # 0.9 K/mm3 (1.2-5.4) L 03/22/18 18:05 [place] # 0.4 K/mm3 (0.0-0.8) 03/22/18 18:05 Eos # 0.0 K/mm3 (0.0-0.4) 03/22/18 18:05 Baso # 0.0 K/mm3 (0.0-0.1) 03/22/18 18:05 Seg Neutrophils % 82.9 % (40.0-70.0) H 03/22/18 18:05 Seg Neutrophils # 6.8 K/mm3 (1.8-7.7) 03/22/18 18:05 PT 13.8 Sec. (12.2-14.9) 03/22/18 18:05 INR 1.02 (0.87-1.13) 03/22/18 18:05 APTT 32.7 Sec. (24.2-36.6) 03/22/18 18:05 Thrombin Time 18.5 Sec. (15.1-19.6) 03/22/18 18:05 POC Sodium 139 mmol/L (138-146) 03/23/18 17:04 POC Potassium 4.1 (3.5-4.9) 03/23/18 17:04 POC Chloride 103 (98-109) 03/23/18 17:04 Sodium 134 mmol/L (137-145) L 03/22/18 18:05 Potassium 3.8 mmol/L (3.6-5.0) 03/22/18 18:05 Chloride 93.5 mmol/L (98-107) L 03/22/18 18:05 Carbon Dioxide 24 mmol/L (22-30) 03/22/18 18:05 Anion Gap 20 mmol/L 03/22/18 18:05 POC BUN 19 mg/dl (8-26) 03/23/18 17:04 BUN 17 mg/dL (7-17) 03/22/18 18:05 Creatinine 0.8 mg/dL (0.7-1.2) 03/22/18 18:05 Estimated GFR > 60 ml/min 03/22/18 18:05 BUN/Creatinine Ratio 21 % 03/22/18 18:05 Glucose 316 mg/dL (65-100) H 03/22/18 18:05 POC Glucose 227 (70-105) H 03/25/18 16:43 Hemoglobin A1c 10.9 % (4-6) H 03/24/18 04:08 Calcium 9.2 mg/dL (8.4-10.2) 03/22/18 18:05 Magnesium 1.60 mg/dL (1.7-2.3) L 03/22/18 18:05 Total Bilirubin 0.60 mg/dL (0.1-1.2) 03/22/18 18:05 AST 14 units/L (5-40) 03/22/18 18:05 ALT 9 units/L (7-56) 03/22/18 18:05 Alkaline Phosphatase 111 units/L (35-129) 03/22/18 18:05 Total Creatine Kinase 67 units/L (30-135) 03/22/18 18:05 CK-MB (CK-2) 1.8 ng/mL (0.0-4.0) 03/22/18 18:05 CK-MB (CK-2) Rel Index 2.6 (0-4) 03/22/18 18:05 Troponin T < 0.010 ng/mL (0.00-0.029) 03/22/18 18:05 Total Protein 7.7 g/dL (6.3-8.2) 03/22/18 18:05 Albumin 4.2 g/dL (3.9-5) 03/22/18 18:05 Albumin/Globulin Ratio 1.2 % 03/22/18 18:05 TSH 1.960 mlU/mL (0.270-4.200) 03/22/18 18:05 Urine Color Yellow (Yellow) 03/23/18 02:50 Urine Turbidity Cloudy (Clear) 03/23/18 02:50 Urine pH 5.0 (5.0-7.0) 03/23/18 02:50 Ur Specific [place] 1.017 (1.003-1.030) 03/23/18 02:50 Urine Protein <15 mg/dl mg/dL (Negative) 03/23/18 02:50 Urine Glucose (UA) >=500 mg/dL (Negative) 03/23/18 02:50 Urine Ketones Tr mg/dL (Negative) 03/23/18 02:50 Urine Blood Sm (Negative) 03/23/18 02:50 Urine Nitrite Pos (Negative) 03/23/18 02:50 Urine Bilirubin Neg (Negative) 03/23/18 02:50 Urine Urobilinogen < 2.0 mg/dL (<2.0) 03/23/18 02:50 Ur Leukocyte Esterase Lg (Negative) 03/23/18 02:50 Urine WBC (Auto) 76.0 /HPF (0.0-6.0) H 03/23/18 02:50 Urine RBC (Auto) 4.0 /HPF (0.0-6.0) 03/23/18 02:50 U Epithel Cells (Auto) < 1.0 /HPF (0-13.0) 03/23/18 02:50 Urine Bacteria (Auto) 2+ /HPF (Negative) 03/23/18 02:50 Urine WBC Clumps 3+ /HPF 03/23/18 02:50 Uric Acid Crystals Few 03/23/18 02:50 Urine Mucus Few /HPF 03/23/18 02:50 Blood Type A POSITIVE 03/23/18 17:10 Antibody Screen Negative 03/23/18 17:10
[2018-03-25] MEDS ORDERED: LANTUS SUB-Q SCH (18:05)
[2018-03-25] MEDS ORDERED: CARDIZEM IV ONE (20:56)
[2018-03-25] MEDS ORDERED: CARDIZEM/D5W 100MG/100ML 100 MG/100 ML BAG IV SCH (21:00)
[2018-03-25] MEDS: DILAUDID IV PRN (21:05)
[2018-03-25] MEDS ORDERED: CARDIZEM 100 MG in D5W 100 ML IV SCH (22:00)
[2018-03-25] MEDS ORDERED: CARDIZEM 100 MG in D5W 80 ML IV SCH (22:00)
[2018-03-25] MEDS: LOVENOX SUB-Q SCH (22:08)
[2018-03-25] MEDS: NACL 0.9% 1000 ML 1,000 ML IV SCH (22:09)
[2018-03-26] MEDS: DILAUDID IV PRN ×3 (00:28→18:01)
[2018-03-26] MEDS: HumaLOG SUB-Q SCH ×4 (07:03→21:56)
--- NOTE | 2018-03-26 07:59 | Progress Note ---
Assessment and Plan Assessment and plan: 78F who got dizzy and fell, broke her left hip, she denied LOC Diagnosis Femur fracture, left HTN (hypertension) Diabetes with Hyperglycemia UTI -A. fib with RVR and hypercoagulable states PLAN -Sp external fixation with nailing of hip 03/23 optimize meds for chronic conditions optimise insulins Rocephin, urine culture grew multiple organism -Rate control medications, on dilt drip, cardiology consult, echocardiogram, will likely need anticoagulation for stroke prophylaxis DVT prophylaxis; chemical History Interval history: left hip pain is improved, she had very elevated heart rate of 180 last nights and A. fib Review of systems Constitutional: No fevers, no malaise, no joint pains CVS: No chest pain, no orthopnea, no dyspnea on exertion, no pedal edema GI: No abdominal pain, no diarrhea, no vomiting, no constipation Respiratory: No shortness of breath, no wheezing, no coughing Hospitalist Physical - Physical exam Narrative exam: General.: Appears well, no distress, nontoxic HEENT: Moist mucous membranes, extraocular muscles intact, no lymphadenopathy Neck: supple Cardiac: S1-S2 heard Lungs: clear to auscultation bilaterally Abdomen: soft , nontender, nondistended, bowel sounds positive Extremities: no edema clubbing or cyanosis Skin: no rash or lesions Neurologic: no gross focal deficits Psych: calm, and cooperative - Constitutional Vitals: Temp Pulse Resp BP Pulse Ox 98.0 F 129 H 18 134/64 94 03/26/18 04:35 03/26/18 04:35 03/26/18 04:35 03/26/18 04:40 03/26/18 04:35 General appearance: Present: mild distress, obese Results - Labs CBC & Chem 7: 03/24/18 04:08 03/22/18 18:05 Labs: Laboratory Last Values WBC 8.2 K/mm3 (4.5-11.0) 03/22/18 18:05 RBC 4.47 M/mm3 (3.65-5.03) 03/22/18 18:05 Hgb 9.2 gm/dl (10.1-14.3) L D 03/24/18 04:08 POC Hgb 9.9 (12-17) L 03/23/18 17:04 Hct 27.7 % (30.3-42.9) L D 03/24/18 04:08 POC Hct 29 (38-51) L 03/23/18 17:04 MCV 86 fl (79-97) 03/22/18 18:05 MCH 29 pg (28-32) 03/22/18 18:05 MCHC 34 % (30-34) 03/22/18 18:05 RDW 13.6 % (13.2-15.2) 03/22/18 18:05 Plt Count 171 K/mm3 (140-440) 03/22/18 18:05 Lymph % (Auto) 11.5 % (13.4-35.0) L 03/22/18 18:05 [place] % (Auto) 4.8 % (0.0-7.3) 03/22/18 18:05 Eos % (Auto) 0.6 % (0.0-4.3) 03/22/18 18:05 Baso % (Auto) 0.2 % (0.0-1.8) 03/22/18 18:05 Lymph # 0.9 K/mm3 (1.2-5.4) L 03/22/18 18:05 [place] # 0.4 K/mm3 (0.0-0.8) 03/22/18 18:05 Eos # 0.0 K/mm3 (0.0-0.4) 03/22/18 18:05 Baso # 0.0 K/mm3 (0.0-0.1) 03/22/18 18:05 Seg Neutrophils % 82.9 % (40.0-70.0) H 03/22/18 18:05 Seg Neutrophils # 6.8 K/mm3 (1.8-7.7) 03/22/18 18:05 PT 13.8 Sec. (12.2-14.9) 03/22/18 18:05 INR 1.02 (0.87-1.13) 03/22/18 18:05 APTT 32.7 Sec. (24.2-36.6) 03/22/18 18:05 Thrombin Time 18.5 Sec. (15.1-19.6) 03/22/18 18:05 POC Sodium 139 mmol/L (138-146) 03/23/18 17:04 POC Potassium 4.1 (3.5-4.9) 03/23/18 17:04 POC Chloride 103 (98-109) 03/23/18 17:04 Sodium 134 mmol/L (137-145) L 03/22/18 18:05 Potassium 3.8 mmol/L (3.6-5.0) 03/22/18 18:05 Chloride 93.5 mmol/L (98-107) L 03/22/18 18:05 Carbon Dioxide 24 mmol/L (22-30) 03/22/18 18:05 Anion Gap 20 mmol/L 03/22/18 18:05 POC BUN 19 mg/dl (8-26) 03/23/18 17:04 BUN 17 mg/dL (7-17) 03/22/18 18:05 Creatinine 0.8 mg/dL (0.7-1.2) 03/22/18 18:05 Estimated GFR > 60 ml/min 03/22/18 18:05 BUN/Creatinine Ratio 21 % 03/22/18 18:05 Glucose 316 mg/dL (65-100) H 03/22/18 18:05 POC Glucose 254 (70-105) H 03/26/18 06:09 Hemoglobin A1c 10.9 % (4-6) H 03/24/18 04:08 Calcium 9.2 mg/dL (8.4-10.2) 03/22/18 18:05 Magnesium 1.60 mg/dL (1.7-2.3) L 03/22/18 18:05 Total Bilirubin 0.60 mg/dL (0.1-1.2) 03/22/18 18:05 AST 14 units/L (5-40) 03/22/18 18:05 ALT 9 units/L (7-56) 03/22/18 18:05 Alkaline Phosphatase 111 units/L (35-129) 03/22/18 18:05 Total Creatine Kinase 67 units/L (30-135) 03/22/18 18:05 CK-MB (CK-2) 1.8 ng/mL (0.0-4.0) 03/22/18 18:05 CK-MB (CK-2) Rel Index 2.6 (0-4) 03/22/18 18:05 Troponin T < 0.010 ng/mL (0.00-0.029) 03/22/18 18:05 Total Protein 7.7 g/dL (6.3-8.2) 03/22/18 18:05 Albumin 4.2 g/dL (3.9-5) 03/22/18 18:05 Albumin/Globulin Ratio 1.2 % 03/22/18 18:05 TSH 1.960 mlU/mL (0.270-4.200) 03/22/18 18:05 Urine Color Yellow (Yellow) 03/23/18 02:50 Urine Turbidity Cloudy (Clear) 03/23/18 02:50 Urine pH 5.0 (5.0-7.0) 03/23/18 02:50 Ur Specific [place] 1.017 (1.003-1.030) 03/23/18 02:50 Urine Protein <15 mg/dl mg/dL (Negative) 03/23/18 02:50 Urine Glucose (UA) >=500 mg/dL (Negative) 03/23/18 02:50 Urine Ketones Tr mg/dL (Negative) 03/23/18 02:50 Urine Blood Sm (Negative) 03/23/18 02:50 Urine Nitrite Pos (Negative) 03/23/18 02:50 Urine Bilirubin Neg (Negative) 03/23/18 02:50 Urine Urobilinogen < 2.0 mg/dL (<2.0) 03/23/18 02:50 Ur Leukocyte Esterase Lg (Negative) 03/23/18 02:50 Urine WBC (Auto) 76.0 /HPF (0.0-6.0) H 03/23/18 02:50 Urine RBC (Auto) 4.0 /HPF (0.0-6.0) 03/23/18 02:50 U Epithel Cells (Auto) < 1.0 /HPF (0-13.0) 03/23/18 02:50 Urine Bacteria (Auto) 2+ /HPF (Negative) 03/23/18 02:50 Urine WBC Clumps 3+ /HPF 03/23/18 02:50 Uric Acid Crystals Few 03/23/18 02:50 Urine Mucus Few /HPF 03/23/18 02:50 Blood Type A POSITIVE 03/23/18 17:10 Antibody Screen Negative 03/23/18 17:10
[2018-03-26] MEDS: LOPRESSOR PO SCH ×2 (11:40→21:58)
[2018-03-26] MEDS: ROCEPHIN/NS 1 GM/50 ML 1 GM/50 ML BAG IV SCH (11:41)
[2018-03-26] MEDS: SODIUM CHLORIDE FLUSH SYRINGE 10 ML IV SCH ×2 (11:46→21:55)
[2018-03-26] MEDS ORDERED: CORDARONE 150 MG in D5W 100 ML IV ONE (13:11)
[2018-03-26] MEDS ORDERED: LOPRESSOR IV PRN (13:11)
--- NOTE | 2018-03-26 13:17 | Consultation ---
History of Present Illness Consult date: 03/26/18 Consult reason: atrial fibrillation History of present illness: The patient is a 78-year-old woman history of hypertension, diabetes and dementia. She is a poor historian on account of her dementia, and the family members at the bedside are not very familiar with her past medical or cardiac history. She came into this hospital 3 days ago following a fall at home, which caused a hip fracture. She is status post hip surgery performed 2 days ago. Cardiovascular consultation is requested for further assessment of the developme nt of a new, rapid atrial fibrillation. The patient otherwise appears comfortable, has not complained of chest pain all shortness of breath. She remains hemodynamically stable. A review of her serial ECGs show that she was mild sinus tachycardia on her presentation on March 22, was normal sinus rhythm on the prior ECG in January 2018. The current ECG shows a rapid atrial fibrillation, with the development of new lateral ST segment depressions, which may be tachycardia related. Past History Past Medical History: arthritis, diabetes, hypertension, other (dementia) Past Surgical History: total knee replacement Social history: , lives with family. denies: smoking, alcohol abuse, prescription drug abuse Family history: diabetes, hypertension Medications and Allergies Allergies Allergy/AdvReac Type Severity Reaction Status Date / Time No Known Allergies Allergy Unverified 11/19/12 14:52 Home Medications Medication Instructions Recorded Confirmed Last Taken Type Metoprolol [Lopressor TAB] 50 mg PO DAILY 11/19/12 03/22/18 10/24/16 History HYDROcodone/APAP 7.5-325 [[place] 1 each PO Q6HR PRN #20 tablet 10/22/16 03/22/18 10/26/16 Rx 7.5/325] Insulin Detemir [Levemir Flextouch] 12 units SUB-Q HS 10/27/16 03/22/18 10/26/16 History traMADol [Ultram] 50 mg PO Q6HR PRN #20 tablet 01/31/18 03/22/18 Unknown Rx Active Meds: Active Medications Acetaminophen (Tylenol) 650 mg PO Q4H PRN PRN Reason: Pain MILD(1-3)/Fever >100.5/ROJAS Acetaminophen/Hydrocodone Bitart ([place] 7.5/325) 1 each PO Q6HR PRN PRN Reason: Pain Last Admin: 03/25/18 17:10 Dose: 1 each Documented by: Amiodarone HCl (Cordarone) 200 mg PO BID [facility] Aspirin (Halfprin Ec) 81 mg PO QDAY [facility] Dextrose (D50w (25gm) Syringe) 50 ml IV PRN PRN PRN Reason: Hypoglycemia Enoxaparin Sodium (Lovenox) 40 mg SUB-Q QDAY@2200 HUSAM Last Admin: 03/25/18 22:08 Dose: 40 mg Documented by: Hydralazine HCl (Apresoline) 10 mg IV Q4HR PRN PRN Reason: HTN SYS>155 Last Admin: 03/22/18 21:20 Dose: 10 mg Documented by: Hydromorphone HCl (Dilaudid) 1 mg IV Q3H PRN PRN Reason: Pain , Severe (7-10) Last Admin: 03/26/18 03:53 Dose: 1 mg Documented by: Ceftriaxone Sodium (Rocephin/Ns 1 Gm/50 Ml) 1 gm in 50 mls @ 100 mls/hr IV Q24HR [facility]; Protocol Last Admin: 03/26/18 11:41 Dose: 100 mls/hr Documented by: Sodium Chloride (Nacl 0.9% 1000 Ml) 1,000 mls @ 42 mls/hr IV DIRECT HUSAM Last Admin: 03/25/18 22:09 Dose: 42 mls/hr Documented by: Diltiazem HCl 100 mg/ Dextrose 100 mls @ 5 mls/hr IV TITR [facility]; Protocol Last Admin: 03/25/18 23:08 Dose: 5 mg/hr, 5 mls/hr Documented by: Amiodarone HCl 150 mg/ (Dextrose) 103 mls @ 600 mls/hr IV ONCE ONE Stop: 03/26/18 13:21 Insulin Glargine (Lantus) 25 units SUB-Q QHS [facility] Last Admin: 03/25/18 22:14 Dose: 25 units Documented by: Insulin Human Lispro (Humalog) 0 unit SUB-Q ACHS [facility]; Protocol Last Admin: 03/26/18 12:41 Dose: 4 unit Documented by: Magnesium Hydroxide (Milk Of Magnesia) 30 ml PO Q4H PRN PRN Reason: Constipation Metoprolol Tartrate (Lopressor) 50 mg PO BID [facility] Last Admin: 03/26/18 11:40 Dose: 50 mg Documented by: Metoprolol Tartrate (Lopressor) 5 mg IV Q6HR PRN PRN Reason: HR >130 Morphine Sulfate (Morphine) 2 mg IV Q4H PRN PRN Reason: Pain, Moderate (4-6) Morphine Sulfate (Morphine) 4 mg IV Q4H PRN PRN Reason: Pain , Severe (7-10) Ondansetron HCl (Zofran) 4 mg IV Q8H PRN PRN Reason: Nausea And Vomiting Sodium Chloride (Sodium Chloride Flush Syringe 10 Ml) 10 ml IV BID HUSAM Last Admin: 03/26/18 11:46 Dose: Not Given Documented by: Sodium Chloride (Sodium Chloride Flush Syringe 10 Ml) 10 ml IV PRN PRN PRN Reason: LINE FLUSH Last Admin: 03/23/18 10:14 Dose: 10 ml Documented by: Sodium Chloride (Sodium Chloride Flush Syringe 10 Ml) 10 ml IV PRN NR Stop: 04/02/18 23:59 Tramadol HCl (Ultram) 50 mg PO Q6HR PRN PRN Reason: Pain Zolpidem Tartrate (Ambien) 5 mg PO QHS PRN PRN Reason: Sleep Review of Systems ROS unobtainable: due to mental status Physical Examination Vital Signs Temp Pulse Resp BP Pulse Ox 98.1 F 78 17 229/116 98 03/22/18 18:01 03/22/18 18:01 03/22/18 18:01 03/22/18 18:01 03/22/18 18:01 General appearance: no acute distress HEENT: Positive: PERRL Neck: Positive: neck supple Cardiac: Positive: irregularly irregular Lungs: Positive: Decreased Breath Sounds Neuro: Positive: Grossly Intact Abdomen: Positive: Soft Female genitourinary: deferred Skin: Positive: Clear Extremities: Absent: edema Results 03/24/18 04:08 03/22/18 18:05 EKG interpretations - Telemetry EKG Rhythm: Atrial Fibrillation Assessment and Plan - Patient Problems (1) Rapid atrial fibrillation Current Visit: Yes Status: Acute Plan to address problem: Patient is 2 days post hip surgery, developed new onset rapid atrial fibrillation. Recommendations: Echocardiogram for left ventricular functional assessment. Rate control with diltiazem, beta blockers and amiodarone tolerated. Initiate oral aspirin therapy, and eventual transition to long-term oral anticoagulation. Repeat ECG following resolution of the tachycardia, and if ST depressions persist, she will need more aggressive ischemia evaluation.
[2018-03-26] MEDS: HALFPRIN EC PO SCH (13:40)
[2018-03-26] MEDS: CORDARONE PO SCH ×2 (14:22→21:57)
[2018-03-26] MEDS: LOVENOX SUB-Q SCH (21:56)
[2018-03-26] MEDS: LANTUS SUB-Q SCH (23:00)
[2018-03-26] MEDS: NACL 0.9% 1000 ML 1,000 ML IV SCH (23:03)
[2018-03-27] MEDS: HumaLOG SUB-Q SCH ×4 (09:13→23:48)
[2018-03-27] MEDS: CORDARONE PO SCH ×2 (09:15→22:24)
[2018-03-27] MEDS: LOPRESSOR PO SCH ×2 (09:15→22:24)
[2018-03-27] MEDS: HALFPRIN EC PO SCH (09:15)
[2018-03-27] MEDS: SODIUM CHLORIDE FLUSH SYRINGE 10 ML IV SCH ×2 (09:17→22:25)
--- NOTE | 2018-03-27 11:08 | Progress Note ---
Addendum entered and electronically signed by THANG PERDOMO MD 03/27/18 14:38: Patient persists with atrial fibrillation, with suboptimal rate control on multi ple AV silver blockers. Ultimately may need to be considered for HEMANTH guided cardioversion. Original Note: Assessment and Plan Hip fracture s/t fall status post hip surgery New atrial fibrillation normal TSH on amiodarone and metoprolol for rate control Hypertension Diabetes Dementia Echocardiogram reports mild aortic stenosis, normal LVEF 60-65%. Subjective Date of service: 03/27/18 Interval history: No distress noted. Rapid Afib on telemetry. Objective Vital Signs Temp Pulse Resp BP Pulse Ox 03/27/18 09:15 130 H 148/65 03/27/18 07:52 99.1 F 119 H 16 148/65 97 03/27/18 04:40 99.1 F 122 H 18 143/85 98 03/26/18 23:51 98.8 F 93 H 22 106/49 97 03/26/18 22:00 99 H 03/26/18 21:58 113 H 128/72 03/26/18 20:42 98.5 F 99 H 18 128/72 95 03/26/18 18:01 16 03/26/18 17:34 97.8 F 03/26/18 17:33 89 18 126/53 97 03/26/18 14:00 100 H 03/26/18 12:35 99.2 F 85 20 110/56 96 03/26/18 11:40 99 H 159/99 - Physical Examination General: No Apparent Distress HEENT: Positive: PERRL Cardiac: Positive: irregularly irregular Extremities: Absent: edema
[2018-03-27] MEDS: ROCEPHIN/NS 1 GM/50 ML 1 GM/50 ML BAG IV SCH (11:19)
--- NOTE | 2018-03-27 12:05 | Progress Note ---
Assessment and Plan Assessment and plan: 78F who got dizzy and fell, broke her left hip, she denied LOC Diagnosis Femur fracture, left HTN (hypertension) Diabetes with Hyperglycemia UTI -A. fib with RVR and hypercoagulable states PLAN -Sp external fixation with nailing of hip 03/23 optimize meds for chronic conditions optimise insulins Rocephin needs 7 days of abx, urine culture grew multiple organism -Rate control medications, on dilt drip, cardiology consult appreciated, TSH normal, echocardiogram shows preserved EF, will likely need anticoagulation for stroke prophylaxis -Heart rate is still uncontrolled, management per cardiology DVT prophylaxis; chemical History Interval history: left hip pain is improved, she was tachycardic last night Review of systems Constitutional: No fevers, no malaise, no joint pains CVS: No chest pain, no orthopnea, no dyspnea on exertion, no pedal edema GI: No abdominal pain, no diarrhea, no vomiting, no constipation Respiratory: No shortness of breath, no wheezing, no coughing Hospitalist Physical - Physical exam Narrative exam: General.: Appears well, no distress, nontoxic HEENT: Moist mucous membranes, extraocular muscles intact, no lymphadenopathy Neck: supple Cardiac: S1-S2 heard Lungs: clear to auscultation bilaterally Abdomen: soft , nontender, nondistended, bowel sounds positive Extremities: no edema clubbing or cyanosis Skin: no rash or lesions Neurologic: no gross focal deficits Psych: calm, and cooperative, very poor insight - Constitutional Vitals: Temp Pulse Resp BP Pulse Ox 99.1 F 130 H 16 148/65 97 03/27/18 07:52 03/27/18 09:15 03/27/18 07:52 03/27/18 09:15 03/27/18 07:52 General appearance: Present: mild distress, obese Results - Labs CBC & Chem 7: 03/24/18 04:08 03/22/18 18:05 Labs: Laboratory Last Values WBC 8.2 K/mm3 (4.5-11.0) 03/22/18 18:05 RBC 4.47 M/mm3 (3.65-5.03) 03/22/18 18:05 Hgb 9.2 gm/dl (10.1-14.3) L D 03/24/18 04:08 POC Hgb 9.9 (12-17) L 03/23/18 17:04 Hct 27.7 % (30.3-42.9) L D 03/24/18 04:08 POC Hct 29 (38-51) L 03/23/18 17:04 MCV 86 fl (79-97) 03/22/18 18:05 MCH 29 pg (28-32) 03/22/18 18:05 MCHC 34 % (30-34) 03/22/18 18:05 RDW 13.6 % (13.2-15.2) 03/22/18 18:05 Plt Count 171 K/mm3 (140-440) 03/22/18 18:05 Lymph % (Auto) 11.5 % (13.4-35.0) L 03/22/18 18:05 [place] % (Auto) 4.8 % (0.0-7.3) 03/22/18 18:05 Eos % (Auto) 0.6 % (0.0-4.3) 03/22/18 18:05 Baso % (Auto) 0.2 % (0.0-1.8) 03/22/18 18:05 Lymph # 0.9 K/mm3 (1.2-5.4) L 03/22/18 18:05 [place] # 0.4 K/mm3 (0.0-0.8) 03/22/18 18:05 Eos # 0.0 K/mm3 (0.0-0.4) 03/22/18 18:05 Baso # 0.0 K/mm3 (0.0-0.1) 03/22/18 18:05 Seg Neutrophils % 82.9 % (40.0-70.0) H 03/22/18 18:05 Seg Neutrophils # 6.8 K/mm3 (1.8-7.7) 03/22/18 18:05 PT 13.8 Sec. (12.2-14.9) 03/22/18 18:05 INR 1.02 (0.87-1.13) 03/22/18 18:05 APTT 32.7 Sec. (24.2-36.6) 03/22/18 18:05 Thrombin Time 18.5 Sec. (15.1-19.6) 03/22/18 18:05 POC Sodium 139 mmol/L (138-146) 03/23/18 17:04 POC Potassium 4.1 (3.5-4.9) 03/23/18 17:04 POC Chloride 103 (98-109) 03/23/18 17:04 Sodium 134 mmol/L (137-145) L 03/22/18 18:05 Potassium 3.8 mmol/L (3.6-5.0) 03/22/18 18:05 Chloride 93.5 mmol/L (98-107) L 03/22/18 18:05 Carbon Dioxide 24 mmol/L (22-30) 03/22/18 18:05 Anion Gap 20 mmol/L 03/22/18 18:05 POC BUN 19 mg/dl (8-26) 03/23/18 17:04 BUN 17 mg/dL (7-17) 03/22/18 18:05 Creatinine 0.8 mg/dL (0.7-1.2) 03/22/18 18:05 Estimated GFR > 60 ml/min 03/22/18 18:05 BUN/Creatinine Ratio 21 % 03/22/18 18:05 Glucose 316 mg/dL (65-100) H 03/22/18 18:05 POC Glucose 231 (70-105) H 03/27/18 06:17 Hemoglobin A1c 10.9 % (4-6) H 03/24/18 04:08 Calcium 9.2 mg/dL (8.4-10.2) 03/22/18 18:05 Magnesium 1.60 mg/dL (1.7-2.3) L 03/22/18 18:05 Total Bilirubin 0.60 mg/dL (0.1-1.2) 03/22/18 18:05 AST 14 units/L (5-40) 03/22/18 18:05 ALT 9 units/L (7-56) 03/22/18 18:05 Alkaline Phosphatase 111 units/L (35-129) 03/22/18 18:05 Total Creatine Kinase 67 units/L (30-135) 03/22/18 18:05 CK-MB (CK-2) 1.8 ng/mL (0.0-4.0) 03/22/18 18:05 CK-MB (CK-2) Rel Index 2.6 (0-4) 03/22/18 18:05 Troponin T < 0.010 ng/mL (0.00-0.029) 03/22/18 18:05 Total Protein 7.7 g/dL (6.3-8.2) 03/22/18 18:05 Albumin 4.2 g/dL (3.9-5) 03/22/18 18:05 Albumin/Globulin Ratio 1.2 % 03/22/18 18:05 TSH 1.960 mlU/mL (0.270-4.200) 03/22/18 18:05 Urine Color Yellow (Yellow) 03/23/18 02:50 Urine Turbidity Cloudy (Clear) 03/23/18 02:50 Urine pH 5.0 (5.0-7.0) 03/23/18 02:50 Ur Specific [place] 1.017 (1.003-1.030) 03/23/18 02:50 Urine Protein <15 mg/dl mg/dL (Negative) 03/23/18 02:50 Urine Glucose (UA) >=500 mg/dL (Negative) 03/23/18 02:50 Urine Ketones Tr mg/dL (Negative) 03/23/18 02:50 Urine Blood Sm (Negative) 03/23/18 02:50 Urine Nitrite Pos (Negative) 03/23/18 02:50 Urine Bilirubin Neg (Negative) 03/23/18 02:50 Urine Urobilinogen < 2.0 mg/dL (<2.0) 03/23/18 02:50 Ur Leukocyte Esterase Lg (Negative) 03/23/18 02:50 Urine WBC (Auto) 76.0 /HPF (0.0-6.0) H 03/23/18 02:50 Urine RBC (Auto) 4.0 /HPF (0.0-6.0) 03/23/18 02:50 U Epithel Cells (Auto) < 1.0 /HPF (0-13.0) 03/23/18 02:50 Urine Bacteria (Auto) 2+ /HPF (Negative) 03/23/18 02:50 Urine WBC Clumps 3+ /HPF 03/23/18 02:50 Uric Acid Crystals Few 03/23/18 02:50 Urine Mucus Few /HPF 03/23/18 02:50 Blood Type A POSITIVE 03/23/18 17:10 Antibody Screen Negative 03/23/18 17:10
[2018-03-27] MEDS: DILAUDID IV PRN (13:14)
[2018-03-27] MEDS: LANTUS SUB-Q SCH (22:24)
[2018-03-27] MEDS: LOVENOX SUB-Q SCH (22:24)
[2018-03-28] MEDS: NACL 0.9% 1000 ML 1,000 ML IV SCH (04:23)
[2018-03-28] MEDS: DILAUDID IV PRN (04:23)
[2018-03-28] MEDS: ROCEPHIN/NS 1 GM/50 ML 1 GM/50 ML BAG IV SCH (12:04)
[2018-03-28] MEDS: CORDARONE PO SCH ×2 (12:05→21:27)
[2018-03-28] MEDS: HALFPRIN EC PO SCH (12:05)
[2018-03-28] MEDS: HumaLOG SUB-Q SCH ×4 (12:11→21:30)
[2018-03-28] MEDS: LOPRESSOR PO SCH ×2 (12:13→21:27)
[2018-03-28] MEDS: SODIUM CHLORIDE FLUSH SYRINGE 10 ML IV SCH ×2 (12:14→21:28)
--- NOTE | 2018-03-28 12:15 | Progress Note ---
Assessment and Plan Assessment and plan: 78F who got dizzy and fell, broke her left hip, she denied LOC Diagnosis Femur fracture, left HTN (hypertension) Diabetes with Hyperglycemia UTI -A. fib with RVR and hypercoagulable states PLAN -Sp external fixation with nailing of hip 03/23 optimize meds for chronic conditions optimise insulins Rocephin needs 7 days of abx, urine culture grew multiple organism -Rate control medications, now off dilt drip, cardiology consult appreciated, TSH normal, echocardiogram shows preserved EF, anticoagulation for stroke prophylaxis per cardiology -Heart rate is still uncontrolled, per cardiology "Patient persists with atrial fibrillation, with suboptimal rate control on multiple AV silver blockers. Ultimately may need to be considered for HEMANTH guided cardioversion." DVT prophylaxis; chemical History Interval history: left hip pain is improved, she was tachycardic last night Review of systems Constitutional: No fevers, no malaise, no joint pains CVS: No chest pain, no orthopnea, no dyspnea on exertion, no pedal edema GI: No abdominal pain, no diarrhea, no vomiting, no constipation Respiratory: No shortness of breath, no wheezing, no coughing Hospitalist Physical - Physical exam Narrative exam: General.: Appears well, no distress, nontoxic HEENT: Moist mucous membranes, extraocular muscles intact, no lymphadenopathy Neck: supple Cardiac: S1-S2 heard Lungs: clear to auscultation bilaterally Abdomen: soft , nontender, nondistended, bowel sounds positive Extremities: no edema clubbing or cyanosis Skin: no rash or lesions Neurologic: no gross focal deficits Psych: calm, and cooperative, very poor insight - Constitutional Vitals: Temp Pulse Resp BP Pulse Ox 97.9 F 104 H 18 107/51 92 03/28/18 11:19 03/28/18 11:19 03/28/18 11:19 03/28/18 11:19 03/28/18 11:19 General appearance: Present: mild distress, obese Results - Labs CBC & Chem 7: 03/24/18 04:08 03/22/18 18:05 Labs: Laboratory Last Values WBC 8.2 K/mm3 (4.5-11.0) 03/22/18 18:05 RBC 4.47 M/mm3 (3.65-5.03) 03/22/18 18:05 Hgb 9.2 gm/dl (10.1-14.3) L D 03/24/18 04:08 POC Hgb 9.9 (12-17) L 03/23/18 17:04 Hct 27.7 % (30.3-42.9) L D 03/24/18 04:08 POC Hct 29 (38-51) L 03/23/18 17:04 MCV 86 fl (79-97) 03/22/18 18:05 MCH 29 pg (28-32) 03/22/18 18:05 MCHC 34 % (30-34) 03/22/18 18:05 RDW 13.6 % (13.2-15.2) 03/22/18 18:05 Plt Count 171 K/mm3 (140-440) 03/22/18 18:05 Lymph % (Auto) 11.5 % (13.4-35.0) L 03/22/18 18:05 [place] % (Auto) 4.8 % (0.0-7.3) 03/22/18 18:05 Eos % (Auto) 0.6 % (0.0-4.3) 03/22/18 18:05 Baso % (Auto) 0.2 % (0.0-1.8) 03/22/18 18:05 Lymph # 0.9 K/mm3 (1.2-5.4) L 03/22/18 18:05 [place] # 0.4 K/mm3 (0.0-0.8) 03/22/18 18:05 Eos # 0.0 K/mm3 (0.0-0.4) 03/22/18 18:05 Baso # 0.0 K/mm3 (0.0-0.1) 03/22/18 18:05 Seg Neutrophils % 82.9 % (40.0-70.0) H 03/22/18 18:05 Seg Neutrophils # 6.8 K/mm3 (1.8-7.7) 03/22/18 18:05 PT 13.8 Sec. (12.2-14.9) 03/22/18 18:05 INR 1.02 (0.87-1.13) 03/22/18 18:05 APTT 32.7 Sec. (24.2-36.6) 03/22/18 18:05 Thrombin Time 18.5 Sec. (15.1-19.6) 03/22/18 18:05 POC Sodium 139 mmol/L (138-146) 03/23/18 17:04 POC Potassium 4.1 (3.5-4.9) 03/23/18 17:04 POC Chloride 103 (98-109) 03/23/18 17:04 Sodium 134 mmol/L (137-145) L 03/22/18 18:05 Potassium 3.8 mmol/L (3.6-5.0) 03/22/18 18:05 Chloride 93.5 mmol/L (98-107) L 03/22/18 18:05 Carbon Dioxide 24 mmol/L (22-30) 03/22/18 18:05 Anion Gap 20 mmol/L 03/22/18 18:05 POC BUN 19 mg/dl (8-26) 03/23/18 17:04 BUN 17 mg/dL (7-17) 03/22/18 18:05 Creatinine 0.8 mg/dL (0.7-1.2) 03/22/18 18:05 Estimated GFR > 60 ml/min 03/22/18 18:05 BUN/Creatinine Ratio 21 % 03/22/18 18:05 Glucose 316 mg/dL (65-100) H 03/22/18 18:05 POC Glucose 279 (70-105) H 03/28/18 11:20 Hemoglobin A1c 10.9 % (4-6) H 03/24/18 04:08 Calcium 9.2 mg/dL (8.4-10.2) 03/22/18 18:05 Magnesium 1.60 mg/dL (1.7-2.3) L 03/22/18 18:05 Total Bilirubin 0.60 mg/dL (0.1-1.2) 03/22/18 18:05 AST 14 units/L (5-40) 03/22/18 18:05 ALT 9 units/L (7-56) 03/22/18 18:05 Alkaline Phosphatase 111 units/L (35-129) 03/22/18 18:05 Total Creatine Kinase 67 units/L (30-135) 03/22/18 18:05 CK-MB (CK-2) 1.8 ng/mL (0.0-4.0) 03/22/18 18:05 CK-MB (CK-2) Rel Index 2.6 (0-4) 03/22/18 18:05 Troponin T < 0.010 ng/mL (0.00-0.029) 03/22/18 18:05 Total Protein 7.7 g/dL (6.3-8.2) 03/22/18 18:05 Albumin 4.2 g/dL (3.9-5) 03/22/18 18:05 Albumin/Globulin Ratio 1.2 % 03/22/18 18:05 TSH 1.960 mlU/mL (0.270-4.200) 03/22/18 18:05 Urine Color Yellow (Yellow) 03/23/18 02:50 Urine Turbidity Cloudy (Clear) 03/23/18 02:50 Urine pH 5.0 (5.0-7.0) 03/23/18 02:50 Ur Specific [place] 1.017 (1.003-1.030) 03/23/18 02:50 Urine Protein <15 mg/dl mg/dL (Negative) 03/23/18 02:50 Urine Glucose (UA) >=500 mg/dL (Negative) 03/23/18 02:50 Urine Ketones Tr mg/dL (Negative) 03/23/18 02:50 Urine Blood Sm (Negative) 03/23/18 02:50 Urine Nitrite Pos (Negative) 03/23/18 02:50 Urine Bilirubin Neg (Negative) 03/23/18 02:50 Urine Urobilinogen < 2.0 mg/dL (<2.0) 03/23/18 02:50 Ur Leukocyte Esterase Lg (Negative) 03/23/18 02:50 Urine WBC (Auto) 76.0 /HPF (0.0-6.0) H 03/23/18 02:50 Urine RBC (Auto) 4.0 /HPF (0.0-6.0) 03/23/18 02:50 U Epithel Cells (Auto) < 1.0 /HPF (0-13.0) 03/23/18 02:50 Urine Bacteria (Auto) 2+ /HPF (Negative) 03/23/18 02:50 Urine WBC Clumps 3+ /HPF 03/23/18 02:50 Uric Acid Crystals Few 03/23/18 02:50 Urine Mucus Few /HPF 03/23/18 02:50 Blood Type A POSITIVE 03/23/18 17:10 Antibody Screen Negative 03/23/18 17:10
--- NOTE | 2018-03-28 12:38 | Progress Note ---
Assessment and Plan - Patient Problems (1) Rapid atrial fibrillation Current Visit: Yes Status: Acute Plan to address problem: Patient is 2 days post hip surgery, developed new onset rapid atrial fibrillation. Recommendations: Echocardiogram shows normal left ventricular systolic function, ejection fraction 60-65%. Rate control is optimal with diltiazem, beta blockers and amiodarone. Initiate oral aspirin therapy, and eventual transition to long-term oral ant icoagulation. Patient will be treated with a rate control strategy, conservative cardiac management as requested by her daughter. Subjective Date of service: 03/28/18 Interval history: Patient appears comfortable, in no acute distress. Atrial fibrillation rate control is optimal, and 90s. Atrial fibrillation persists, but patient's daughter is not interested in pursuing a mechanical return to sinus rhythm such as cardioversion. We'll therefore continue medical therapy including long-term oral anticoagulation. Objective Vital Signs Temp Pulse Resp BP Pulse Ox 03/28/18 11:19 97.9 F 104 H 18 107/51 92 03/28/18 08:17 98.3 F 98 H 18 106/51 100 03/28/18 04:19 100.0 F H 110 H 16 121/53 97 03/27/18 23:22 98.4 F 16 131/76 03/27/18 23:00 98.2 F 03/27/18 22:00 133 H 03/27/18 20:00 72 18 91 03/27/18 19:33 98.8 F 18 149/83 03/27/18 16:47 106 H 18 119/53 96 03/27/18 12:24 99.1 F 121 H 16 108/62 93 - Physical Examination General: No Apparent Distress HEENT: Positive: PERRL Neck: Positive: neck supple Cardiac: Positive: irregularly irregular Lungs: Positive: Decreased Breath Sounds Neuro: Positive: Grossly Intact Abdomen: Positive: Soft Skin: Positive: Clear Extremities: Absent: edema
[2018-03-28 13:49] LABS: INR 1.15 (0.87-1.13)
[2018-03-28] MEDS: COUMADIN PO SCH (18:48)
[2018-03-28] MEDS: LOVENOX SUB-Q SCH (21:27)
[2018-03-28] MEDS: LANTUS SUB-Q SCH (21:29)
[2018-03-29] MEDS: NACL 0.9% 1000 ML 1,000 ML IV SCH (05:28)
[2018-03-29] MEDS: CORDARONE PO SCH ×2 (09:36→21:58)
[2018-03-29] MEDS: NORCO 7.5/325 PO PRN ×2 (09:36→21:53)
[2018-03-29] MEDS: LOPRESSOR PO SCH ×2 (09:37→21:58)
[2018-03-29] MEDS: HALFPRIN EC PO SCH (09:37)
[2018-03-29] MEDS: HumaLOG SUB-Q SCH ×4 (09:38→23:41)
[2018-03-29] MEDS: SODIUM CHLORIDE FLUSH SYRINGE 10 ML IV SCH ×2 (09:39→23:49)
[2018-03-29] MEDS: ROCEPHIN/NS 1 GM/50 ML 1 GM/50 ML BAG IV SCH (10:02)
--- NOTE | 2018-03-29 10:24 | Progress Note ---
Assessment and Plan Hip fracture s/t fall status post hip surgery New atrial fibrillation normal TSH on amiodarone and metoprolol for rate control initiated on warfarin for oral anticoagulation therapy Hypertension Diabetes Dementia Echocardiogram reports mild aortic stenosis, normal LVEF 60-65%. We will increase beta blockers for optimal rate control for atrial fibrillation. Subjective Date of service: 03/29/18 Interval history: No distress. Afib with rate ranging low 100s on tele. Objective Vital Signs Temp Pulse Resp BP BP Pulse Ox 03/29/18 07:58 99.0 F 108 H 18 126/71 94 03/29/18 05:15 98.0 F 118 H 17 118/72 96 03/29/18 00:57 98.0 F 107 H 17 127/62 98 03/28/18 22:00 109 H 97 03/28/18 21:47 99.4 F 94 H 16 133/77 98 03/28/18 20:00 99.0 F 51 L 17 98 03/28/18 16:48 98.1 F 56 L 18 132/55 99 03/28/18 11:19 97.9 F 104 H 18 107/51 92 - Physical Examination General: No Apparent Distress HEENT: Positive: PERRL Cardiac: Positive: irregularly irregular Lungs: Positive: Decreased Breath Sounds Extremities: Absent: edema - Labs and Meds Coagulation 03/28/18 Range/Units 13:29 PT 15.1 H (12.2-14.9) Sec. INR 1.15 H (0.87-1.13)
--- NOTE | 2018-03-29 12:25 | Progress Note ---
Assessment and Plan Assessment and plan: 78F who got dizzy and fell, broke her left hip, she denied LOC Diagnosis Femur fracture, left HTN (hypertension) Diabetes with Hyperglycemia UTI -A. fib with RVR and hypercoagulable states Dementia with behavioral disturbance PLAN -Sp external fixation with nailing of hip 03/23 optimize meds for chronic conditions optimise insulins Rocephin needs 7 days of abx, urine culture grew multiple organism -Rate control medications, now off dilt drip, cardiology consult appreciated, TSH normal, echocardiogram shows preserved EF, anticoagulation for stroke prophylaxis per cardiology, now on warfarin -optimize HR control meds -she is now exibiting paranoia, zyprexa prn, consult pending -Dispo to [facility] when HR is better controlled DVT prophylaxis; chemical History Interval history: left hip pain is improved, she was tachycardic last night she is paranoid, thinks staff are stealing her coins, but she never had any money on her Review of systems Constitutional: No fevers, no malaise, no joint pains CVS: No chest pain, no orthopnea, no dyspnea on exertion, no pedal edema GI: No abdominal pain, no diarrhea, no vomiting, no constipation Respiratory: No shortness of breath, no wheezing, no coughing Hospitalist Physical - Physical exam Narrative exam: General.: Appears well, no distress, nontoxic HEENT: Moist mucous membranes, extraocular muscles intact, no lymphadenopathy Neck: supple Cardiac: S1-S2 heard Lungs: clear to auscultation bilaterally Abdomen: soft , nontender, nondistended, bowel sounds positive Extremities: no edema clubbing or cyanosis Skin: no rash or lesions Neurologic: no gross focal deficits Psych: paranoid, very poor insight - Constitutional Vitals: Temp Pulse Resp BP Pulse Ox 99.0 F 101 H 18 105/53 97 03/29/18 07:58 03/29/18 11:53 03/29/18 07:58 03/29/18 11:53 03/29/18 11:53 General appearance: Present: mild distress, obese Results - Labs CBC & Chem 7: 03/24/18 04:08 03/22/18 18:05 Labs: Laboratory Last Values WBC 8.2 K/mm3 (4.5-11.0) 03/22/18 18:05 RBC 4.47 M/mm3 (3.65-5.03) 03/22/18 18:05 Hgb 9.2 gm/dl (10.1-14.3) L D 03/24/18 04:08 POC Hgb 9.9 (12-17) L 03/23/18 17:04 Hct 27.7 % (30.3-42.9) L D 03/24/18 04:08 POC Hct 29 (38-51) L 03/23/18 17:04 MCV 86 fl (79-97) 03/22/18 18:05 MCH 29 pg (28-32) 03/22/18 18:05 MCHC 34 % (30-34) 03/22/18 18:05 RDW 13.6 % (13.2-15.2) 03/22/18 18:05 Plt Count 171 K/mm3 (140-440) 03/22/18 18:05 Lymph % (Auto) 11.5 % (13.4-35.0) L 03/22/18 18:05 [place] % (Auto) 4.8 % (0.0-7.3) 03/22/18 18:05 Eos % (Auto) 0.6 % (0.0-4.3) 03/22/18 18:05 Baso % (Auto) 0.2 % (0.0-1.8) 03/22/18 18:05 Lymph # 0.9 K/mm3 (1.2-5.4) L 03/22/18 18:05 [place] # 0.4 K/mm3 (0.0-0.8) 03/22/18 18:05 Eos # 0.0 K/mm3 (0.0-0.4) 03/22/18 18:05 Baso # 0.0 K/mm3 (0.0-0.1) 03/22/18 18:05 Seg Neutrophils % 82.9 % (40.0-70.0) H 03/22/18 18:05 Seg Neutrophils # 6.8 K/mm3 (1.8-7.7) 03/22/18 18:05 PT 15.1 Sec. (12.2-14.9) H 03/28/18 13:29 INR 1.15 (0.87-1.13) H 03/28/18 13:29 APTT 32.7 Sec. (24.2-36.6) 03/22/18 18:05 Thrombin Time 18.5 Sec. (15.1-19.6) 03/22/18 18:05 POC Sodium 139 mmol/L (138-146) 03/23/18 17:04 POC Potassium 4.1 (3.5-4.9) 03/23/18 17:04 POC Chloride 103 (98-109) 03/23/18 17:04 Sodium 134 mmol/L (137-145) L 03/22/18 18:05 Potassium 3.8 mmol/L (3.6-5.0) 03/22/18 18:05 Chloride 93.5 mmol/L (98-107) L 03/22/18 18:05 Carbon Dioxide 24 mmol/L (22-30) 03/22/18 18:05 Anion Gap 20 mmol/L 03/22/18 18:05 POC BUN 19 mg/dl (8-26) 03/23/18 17:04 BUN 17 mg/dL (7-17) 03/22/18 18:05 Creatinine 0.8 mg/dL (0.7-1.2) 03/22/18 18:05 Estimated GFR > 60 ml/min 03/22/18 18:05 BUN/Creatinine Ratio 21 % 03/22/18 18:05 Glucose 316 mg/dL (65-100) H 03/22/18 18:05 POC Glucose 207 (70-105) H 03/29/18 09:05 Hemoglobin A1c 10.9 % (4-6) H 03/24/18 04:08 Calcium 9.2 mg/dL (8.4-10.2) 03/22/18 18:05 Magnesium 1.60 mg/dL (1.7-2.3) L 03/22/18 18:05 Total Bilirubin 0.60 mg/dL (0.1-1.2) 03/22/18 18:05 AST 14 units/L (5-40) 03/22/18 18:05 ALT 9 units/L (7-56) 03/22/18 18:05 Alkaline Phosphatase 111 units/L (35-129) 03/22/18 18:05 Total Creatine Kinase 67 units/L (30-135) 03/22/18 18:05 CK-MB (CK-2) 1.8 ng/mL (0.0-4.0) 03/22/18 18:05 CK-MB (CK-2) Rel Index 2.6 (0-4) 03/22/18 18:05 Troponin T < 0.010 ng/mL (0.00-0.029) 03/22/18 18:05 Total Protein 7.7 g/dL (6.3-8.2) 03/22/18 18:05 Albumin 4.2 g/dL (3.9-5) 03/22/18 18:05 Albumin/Globulin Ratio 1.2 % 03/22/18 18:05 TSH 1.960 mlU/mL (0.270-4.200) 03/22/18 18:05 Urine Color Yellow (Yellow) 03/23/18 02:50 Urine Turbidity Cloudy (Clear) 03/23/18 02:50 Urine pH 5.0 (5.0-7.0) 03/23/18 02:50 Ur Specific [place] 1.017 (1.003-1.030) 03/23/18 02:50 Urine Protein <15 mg/dl mg/dL (Negative) 03/23/18 02:50 Urine Glucose (UA) >=500 mg/dL (Negative) 03/23/18 02:50 Urine Ketones Tr mg/dL (Negative) 03/23/18 02:50 Urine Blood Sm (Negative) 03/23/18 02:50 Urine Nitrite Pos (Negative) 03/23/18 02:50 Urine Bilirubin Neg (Negative) 03/23/18 02:50 Urine Urobilinogen < 2.0 mg/dL (<2.0) 03/23/18 02:50 Ur Leukocyte Esterase Lg (Negative) 03/23/18 02:50 Urine WBC (Auto) 76.0 /HPF (0.0-6.0) H 03/23/18 02:50 Urine RBC (Auto) 4.0 /HPF (0.0-6.0) 03/23/18 02:50 U Epithel Cells (Auto) < 1.0 /HPF (0-13.0) 03/23/18 02:50 Urine Bacteria (Auto) 2+ /HPF (Negative) 03/23/18 02:50 Urine WBC Clumps 3+ /HPF 03/23/18 02:50 Uric Acid Crystals Few 03/23/18 02:50 Urine Mucus Few /HPF 03/23/18 02:50 Blood Type A POSITIVE 03/23/18 17:10 Antibody Screen Negative 03/23/18 17:10
--- NOTE | 2018-03-29 16:39 | Consultation ---
History of Present Illness - Reason for Consult Consult date: 03/29/18 Reason for consult: Initial Psychiatric Evaluation - Chief Complaint Chief complaint: "I fell and hurt my hip" - History of Present Psychiatric Illness Patient is a 78 year old white female who presents to the hospital s/p fall. Psychiatry was consulted for behavioral disturbances. Today the patient is calm and cooperative during the assessment. Daughter is present at the bedside. Per daughter patient has a hx of neurocognitive disorder- diagnosed in 05/2017. Per daughter patient has no PPHx. Patient is alert and oriented x 2 . Confusion noted. Patient has to be redirected several times throughout the assessment. Per daughter since her mother's fall her symptoms have worsen tremendously. She states at home she allows her mother to do her normal activities of daily living. Patient thought process is disorganized. She denies SI/HI's, A/VH's, and delusions. Agitation has been noted amongst staff and daughter occasionally. Patient reports appropriate appetite, energy, and sleep. Current Psychiatric Medications: Patient's daughter denies. Past Psychiatric History: no previous psychiatric diagnosis; no previous inpatient psychiatric hospitalizations; no outpatient psychiatrist; no previous suicide attempts. Past Medication Trials: Klonopin - resulted in fall. Trauma/ Abuse History: Patient denies sexual, physical, and mental abuse. Drug/ Alcohol Abuse History: Patient denies drug/alcohol abuse. Social History: GED- highest level of education ; SSI-$ 750.00 per month ; 5 children; ; good support system. Family History of Psychiatric Illness/ Substance Abuse: Patient denies family history of psychiatric illness and substance abuse. Medications and Allergies Allergies Allergy/AdvReac Type Severity Reaction Status Date / Time No Known Allergies Allergy Unverified 11/19/12 14:52 Home Medications Medication Instructions Recorded Confirmed Last Taken Type Metoprolol [Lopressor TAB] 50 mg PO DAILY 11/19/12 03/22/18 10/24/16 History HYDROcodone/APAP 7.5-325 [[place] 1 each PO Q6HR PRN #20 tablet 10/22/16 03/22/18 10/26/16 Rx 7.5/325] Insulin Detemir [Levemir Flextouch] 12 units SUB-Q HS 10/27/16 03/22/18 10/26/16 History traMADol [Ultram] 50 mg PO Q6HR PRN #20 tablet 01/31/18 03/22/18 Unknown Rx Active Meds: Active Medications Acetaminophen (Tylenol) 650 mg PO Q4H PRN PRN Reason: Pain MILD(1-3)/Fever >100.5/ROJAS Last Admin: 03/28/18 04:22 Dose: 650 mg Documented by: Acetaminophen/Hydrocodone Bitart (Felton 7.5/325) 1 each PO Q6HR PRN PRN Reason: Pain Last Admin: 03/29/18 09:36 Dose: 1 each Documented by: Amiodarone HCl (Cordarone) 200 mg PO BID [facility] Last Admin: 03/29/18 09:36 Dose: 200 mg Documented by: Aspirin (Halfprin Ec) 81 mg PO QDAY [facility] Last Admin: 03/29/18 09:37 Dose: 81 mg Documented by: Dextrose (D50w (25gm) Syringe) 50 ml IV PRN PRN PRN Reason: Hypoglycemia Enoxaparin Sodium (Lovenox) 40 mg SUB-Q QDAY@2200 [facility] Last Admin: 03/28/18 21:27 Dose: 40 mg Documented by: Hydralazine HCl (Apresoline) 10 mg IV Q4HR PRN PRN Reason: HTN SYS>155 Last Admin: 03/22/18 21:20 Dose: 10 mg Documented by: Hydromorphone HCl (Dilaudid) 1 mg IV Q3H PRN PRN Reason: Pain , Severe (7-10) Last Admin: 03/28/18 04:23 Dose: 1 mg Documented by: Ceftriaxone Sodium (Rocephin/Ns 1 Gm/50 Ml) 1 gm in 50 mls @ 100 mls/hr IV Q24HR [facility]; Protocol Last Admin: 03/29/18 10:02 Dose: 100 mls/hr Documented by: Sodium Chloride (Nacl 0.9% 1000 Ml) 1,000 mls @ 42 mls/hr IV DIRECT [facility] Last Admin: 03/29/18 05:28 Dose: 42 mls/hr Documented by: Insulin Glargine (Lantus) 30 units SUB-Q QHS [facility] Last Admin: 03/28/18 21:29 Dose: 30 units Documented by: Insulin Human Lispro (Humalog) 0 unit SUB-Q ACHS [facility]; Protocol Last Admin: 03/29/18 09:38 Dose: Not Given Documented by: Magnesium Hydroxide (Milk Of Magnesia) 30 ml PO Q4H PRN PRN Reason: Constipation Metoprolol Tartrate (Lopressor) 50 mg PO BID [facility] Last Admin: 03/29/18 09:37 Dose: 50 mg Documented by: Metoprolol Tartrate (Lopressor) 5 mg IV Q6HR PRN PRN Reason: HR >130 Morphine Sulfate (Morphine) 2 mg IV Q4H PRN PRN Reason: Pain, Moderate (4-6) Morphine Sulfate (Morphine) 4 mg IV Q4H PRN PRN Reason: Pain , Severe (7-10) Olanzapine (Zyprexa Zydis) 5 mg PO Q6H PRN PRN Reason: Agitation Last Admin: 03/27/18 16:12 Dose: 5 mg Documented by: Ondansetron HCl (Zofran) 4 mg IV Q8H PRN PRN Reason: Nausea And Vomiting Sodium Chloride (Sodium Chloride Flush Syringe 10 Ml) 10 ml IV BID [facility] Last Admin: 03/29/18 09:39 Dose: 10 ml Documented by: Sodium Chloride (Sodium Chloride Flush Syringe 10 Ml) 10 ml IV PRN PRN PRN Reason: LINE FLUSH Last Admin: 03/23/18 10:14 Dose: 10 ml Documented by: Sodium Chloride (Sodium Chloride Flush Syringe 10 Ml) 10 ml IV PRN NR Stop: 04/02/18 23:59 Tramadol HCl (Ultram) 50 mg PO Q6HR PRN PRN Reason: Pain Warfarin Sodium (Coumadin) 5 mg PO DAILY@1700 [facility]; Protocol Last Admin: 03/28/18 18:48 Dose: 5 mg Documented by: Zolpidem Tartrate (Ambien) 5 mg PO QHS PRN PRN Reason: Sleep Mental Status Exam - Vital signs Last Vital Signs Temp 99.0 F 03/29/18 07:58 Pulse 101 H 03/29/18 11:53 Resp 18 03/29/18 07:58 BP 105/53 03/29/18 11:53 Pulse Ox 97 03/29/18 11:53 - Exam Narrative exam: Mental Status Exam Appearance: calm Behavior: regular eye contact Speech: regular rate and tone Mood: " I feel good" Affect: appropriate; congruent mood Thought Process: circumstantial, tangential, disorganized Thought Content: denies SI/HI's, AVH's, and delusions Motor Activity: ambulatory Cognition: A/O x2 ; confusion noted Insight: variable Judgment: variable Results Result Diagrams: 03/24/18 04:08 03/22/18 18:05 Abnormal lab results 03/28/18 03/28/18 03/29/18 Range/Units 17:01 21:32 09:05 POC Glucose 220 H 275 H 207 H (70-105) 03/29/18 Range/Units 11:57 POC Glucose 215 H (70-105) All other labs normal. Assessment and Plan Assessment and plan: Impression: NO PPHx. Hx of Neurocognitive Disorder. Today the patent is calm and cooperative during the assessment. The patient denies SI/HI's, A/VH's, and delusions. patient alert and oriented x 2. Confusion noted. Recommendation/Plan: 1. Will reassess in 24 hours. 2. Continue Zyprexa Zydis 5mg po [id number] PRN for severe agitation. Recommend Delirium precautions below: 1. Frequently reorient patient and involve him/her in their care (simple explanations of procedures, tests, medications). 2. Lights on and shades open during daytime hours. 3. Write date and goals of care in a visible place. 4. Try to avoid unnecessary interruptions to sleep during nighttime hours. 5. Obtain glasses, hearing aids from home if patient uses these at baseline. 6. Avoid medications that may exacerbate delirium (especially narcotics, benzodiazepines, barbiturates, ambien, lunesta, and medications with excessive anticholinergic properties). Disposition: Will reassess in 24 hours to determine proper disposition. Will staff with Dr. Bonita Gonzales.
[2018-03-29] MEDS: COUMADIN PO SCH (18:02)
[2018-03-29] MEDS: LOVENOX SUB-Q SCH (21:58)
[2018-03-29] MEDS: LANTUS SUB-Q SCH (23:48)
[2018-03-30] MEDS: NACL 0.9% 1000 ML 1,000 ML IV SCH (05:36)
[2018-03-30 06:26] LABS: INR 1.35 (0.87-1.13)
[2018-03-30] MEDS: HumaLOG SUB-Q SCH ×4 (08:28→22:02)
--- NOTE | 2018-03-30 10:31 | Progress Note ---
Addendum entered and electronically signed by THANG PERDOMO MD 03/30/18 14:08: Conservative medical therapy for atrial fibrillation, with a rate control strategy. Original Note: Assessment and Plan Hip fracture s/t fall status post hip surgery New atrial fibrillation normal TSH on amiodarone and metoprolol for rate control initiated on warfarin for oral anticoagulation therapy Hypertension Diabetes Dementia Echocardiogram reports mild aortic stenosis, normal LVEF 60-65%. Subjective Date of service: 03/30/18 Interval history: Alert with some confusion. Patient has no complaints. Objective Vital Signs Temp Pulse Resp BP Pulse Ox 03/30/18 07:48 98.0 F 97 H 20 112/51 100 03/30/18 05:15 98.6 F 98 H 17 118/55 100 03/30/18 01:18 98.4 F 96 H 17 114/48 96 03/29/18 22:00 118 H 03/29/18 21:58 118 H 132/60 03/29/18 19:51 98.0 F 124 H 17 132/60 100 03/29/18 17:47 124 H 117/70 99 03/29/18 11:53 101 H 105/53 97 - Physical Examination General: No Apparent Distress HEENT: Positive: PERRL Cardiac: Positive: irregularly irregular Lungs: Positive: Decreased Breath Sounds Neuro: Positive: Grossly Intact - Labs and Meds Coagulation 03/30/18 Range/Units 05:24 PT 17.1 H (12.2-14.9) Sec. INR 1.35 H (0.87-1.13)
[2018-03-30] MEDS: CORDARONE PO SCH (10:32)
[2018-03-30] MEDS: LOPRESSOR PO SCH ×2 (10:32→22:02)
--- NOTE | 2018-03-30 10:32 | Progress Note ---
Assessment and Plan Assessment and plan: 78F who got dizzy and fell, broke her left hip, she denied LOC Diagnosis Femur fracture, left HTN (hypertension) Diabetes with Hyperglycemia UTI -A. fib with RVR and hypercoagulable states Dementia with behavioral disturbance PLAN -Sp external fixation with nailing of hip 03/23 optimize meds for chronic conditions optimise insulins Rocephin needs 7 days of abx, urine culture grew multiple organism -Rate control medications, now off dilt drip, cardiology consult appreciated, TSH normal, echocardiogram shows preserved EF, anticoagulation for stroke prophylaxis per cardiology, now on warfarin -optimize HR control meds -she is now exibiting paranoia, zyprexa prn, consult pending -Dispo to [facility] when HR is better controlled DVT prophylaxis; chemical History Interval history: left hip pain is improved, she was tachycardic last night she is paranoid, thinks staff are stealing her coins, but she never had any money on her Review of systems Constitutional: No fevers, no malaise, no joint pains CVS: No chest pain, no orthopnea, no dyspnea on exertion, no pedal edema GI: No abdominal pain, no diarrhea, no vomiting, no constipation Respiratory: No shortness of breath, no wheezing, no coughing Hospitalist Physical - Physical exam Narrative exam: General.: Appears well, no distress, nontoxic HEENT: Moist mucous membranes, extraocular muscles intact, no lymphadenopathy Neck: supple Cardiac: S1-S2 heard Lungs: clear to auscultation bilaterally Abdomen: soft , nontender, nondistended, bowel sounds positive Extremities: no edema clubbing or cyanosis Skin: no rash or lesions Neurologic: no gross focal deficits Psych: paranoid, very poor insight - Constitutional Vitals: Temp Pulse Resp BP Pulse Ox 98.0 F 97 H 20 112/51 100 03/30/18 07:48 03/30/18 07:48 03/30/18 07:48 03/30/18 07:48 03/30/18 07:48 General appearance: Present: mild distress, obese Results - Labs CBC & Chem 7: 03/24/18 04:08 03/22/18 18:05 Labs: Laboratory Last Values WBC 8.2 K/mm3 (4.5-11.0) 03/22/18 18:05 RBC 4.47 M/mm3 (3.65-5.03) 03/22/18 18:05 Hgb 9.2 gm/dl (10.1-14.3) L D 03/24/18 04:08 POC Hgb 9.9 (12-17) L 03/23/18 17:04 Hct 27.7 % (30.3-42.9) L D 03/24/18 04:08 POC Hct 29 (38-51) L 03/23/18 17:04 MCV 86 fl (79-97) 03/22/18 18:05 MCH 29 pg (28-32) 03/22/18 18:05 MCHC 34 % (30-34) 03/22/18 18:05 RDW 13.6 % (13.2-15.2) 03/22/18 18:05 Plt Count 171 K/mm3 (140-440) 03/22/18 18:05 Lymph % (Auto) 11.5 % (13.4-35.0) L 03/22/18 18:05 [place] % (Auto) 4.8 % (0.0-7.3) 03/22/18 18:05 Eos % (Auto) 0.6 % (0.0-4.3) 03/22/18 18:05 Baso % (Auto) 0.2 % (0.0-1.8) 03/22/18 18:05 Lymph # 0.9 K/mm3 (1.2-5.4) L 03/22/18 18:05 [place] # 0.4 K/mm3 (0.0-0.8) 03/22/18 18:05 Eos # 0.0 K/mm3 (0.0-0.4) 03/22/18 18:05 Baso # 0.0 K/mm3 (0.0-0.1) 03/22/18 18:05 Seg Neutrophils % 82.9 % (40.0-70.0) H 03/22/18 18:05 Seg Neutrophils # 6.8 K/mm3 (1.8-7.7) 03/22/18 18:05 PT 17.1 Sec. (12.2-14.9) H 03/30/18 05:24 INR 1.35 (0.87-1.13) H 03/30/18 05:24 APTT 32.7 Sec. (24.2-36.6) 03/22/18 18:05 Thrombin Time 18.5 Sec. (15.1-19.6) 03/22/18 18:05 POC Sodium 139 mmol/L (138-146) 03/23/18 17:04 POC Potassium 4.1 (3.5-4.9) 03/23/18 17:04 POC Chloride 103 (98-109) 03/23/18 17:04 Sodium 134 mmol/L (137-145) L 03/22/18 18:05 Potassium 3.8 mmol/L (3.6-5.0) 03/22/18 18:05 Chloride 93.5 mmol/L (98-107) L 03/22/18 18:05 Carbon Dioxide 24 mmol/L (22-30) 03/22/18 18:05 Anion Gap 20 mmol/L 03/22/18 18:05 POC BUN 19 mg/dl (8-26) 03/23/18 17:04 BUN 17 mg/dL (7-17) 03/22/18 18:05 Creatinine 0.8 mg/dL (0.7-1.2) 03/22/18 18:05 Estimated GFR > 60 ml/min 03/22/18 18:05 BUN/Creatinine Ratio 21 % 03/22/18 18:05 Glucose 316 mg/dL (65-100) H 03/22/18 18:05 POC Glucose 174 (70-105) H 03/30/18 06:35 Hemoglobin A1c 10.9 % (4-6) H 03/24/18 04:08 Calcium 9.2 mg/dL (8.4-10.2) 03/22/18 18:05 Magnesium 1.60 mg/dL (1.7-2.3) L 03/22/18 18:05 Total Bilirubin 0.60 mg/dL (0.1-1.2) 03/22/18 18:05 AST 14 units/L (5-40) 03/22/18 18:05 ALT 9 units/L (7-56) 03/22/18 18:05 Alkaline Phosphatase 111 units/L (35-129) 03/22/18 18:05 Total Creatine Kinase 67 units/L (30-135) 03/22/18 18:05 CK-MB (CK-2) 1.8 ng/mL (0.0-4.0) 03/22/18 18:05 CK-MB (CK-2) Rel Index 2.6 (0-4) 03/22/18 18:05 Troponin T < 0.010 ng/mL (0.00-0.029) 03/22/18 18:05 Total Protein 7.7 g/dL (6.3-8.2) 03/22/18 18:05 Albumin 4.2 g/dL (3.9-5) 03/22/18 18:05 Albumin/Globulin Ratio 1.2 % 03/22/18 18:05 TSH 1.960 mlU/mL (0.270-4.200) 03/22/18 18:05 Urine Color Yellow (Yellow) 03/23/18 02:50 Urine Turbidity Cloudy (Clear) 03/23/18 02:50 Urine pH 5.0 (5.0-7.0) 03/23/18 02:50 Ur Specific Elaine 1.017 (1.003-1.030) 03/23/18 02:50 Urine Protein <15 mg/dl mg/dL (Negative) 03/23/18 02:50 Urine Glucose (UA) >=500 mg/dL (Negative) 03/23/18 02:50 Urine Ketones Tr mg/dL (Negative) 03/23/18 02:50 Urine Blood Sm (Negative) 03/23/18 02:50 Urine Nitrite Pos (Negative) 03/23/18 02:50 Urine Bilirubin Neg (Negative) 03/23/18 02:50 Urine Urobilinogen < 2.0 mg/dL (<2.0) 03/23/18 02:50 Ur Leukocyte Esterase Lg (Negative) 03/23/18 02:50 Urine WBC (Auto) 76.0 /HPF (0.0-6.0) H 03/23/18 02:50 Urine RBC (Auto) 4.0 /HPF (0.0-6.0) 03/23/18 02:50 U Epithel Cells (Auto) < 1.0 /HPF (0-13.0) 03/23/18 02:50 Urine Bacteria (Auto) 2+ /HPF (Negative) 03/23/18 02:50 Urine WBC Clumps 3+ /HPF 03/23/18 02:50 Uric Acid Crystals Few 03/23/18 02:50 Urine Mucus Few /HPF 03/23/18 02:50 Blood Type A POSITIVE 03/23/18 17:10 Antibody Screen Negative 03/23/18 17:10 Nutrition/Malnutrition Assess - Dietary Evaluation Nutrition/Malnutrition Findings: Nutrition Notes Start: 03/29/18 15:05 Freq: Status: Active Protocol: Document 03/29/18 15:05 RM (Rec: 03/29/18 15:17 RM [id number]) Nutrition Notes Need for Assessment generated from: LOS Initial or Follow up Assessment Current Diagnosis Diabetes Hypertension Other Pertinent Diagnosis L hip wound, Femur fracture, Dementia Current Diet Consistent CHO w/Glucerna TID Labs/Tests No recent labs Pertinent Medications Reviewed Height 5 ft 2 in Weight 77.1 kg [place] Body Weight (kg) 50.00 BMI 31.1 Subjective/Other Information Pt screened for LOS and Coumadin/Vit K diet education. Pt not appropriate for Coumadin/Vit K diet education. Pt tech unsure how much pt has been eating. Noted breakfast with none eaten and 2 Glucerna with 1/3 drunk at bedside. Percent of energy/protein needs met: 10%/9% Burn Absent Trauma Absent #1 Nutrition Diagnosis Inadequate oral intake Etiology dementia As Evidenced by Signs and Symptoms lunch at bedside with none eaten Is patient on ventilator? No Is Patient Ambulatory and/or Out of Bed No REE-([facility]-confined to bed) 1451.664 Calculation Used for Recommendations Kcal/kg Additional Notes Protein Needs: 77-96g (1.2-1. 5g/kg 64 kg adjBW) Fluid Needs: 1 ml/kcal Nutrition Intervention Change Diet Order: Continue current Add Supplement/Snack (indicate name/kcal Continue Glucerna TID /protein ) Provides kCal: 660 Provides Protein (gm) 30 Goal #1 Meet at least 75% of calorie and protein needs via PO and ONS intakes Anticipated Discharge Needs: Consistent Carb Follow-Up By: 03/31/18 Additional Comments Follow for PO and ONS intakes
[2018-03-30] MEDS: ROCEPHIN/NS 1 GM/50 ML 1 GM/50 ML BAG IV SCH (10:33)
[2018-03-30] MEDS: HALFPRIN EC PO SCH (10:33)
[2018-03-30] MEDS: SODIUM CHLORIDE FLUSH SYRINGE 10 ML IV SCH ×2 (10:34→22:03)
[2018-03-30] MEDS: NORCO 7.5/325 PO PRN (12:49)
--- NOTE | 2018-03-30 15:22 | Progress Note ---
Subjective - Reason for Consult Consult date: 03/30/18 Reason for consult: Psychiatry Follow-up - Chief Complaint Chief complaint: "Hello" 78 year old white female who presents to the hospital s/p fall. Psychiatry was consulted for behavioral disturbances. Today the patient is calm and cooperative during the assessment. Confusion is noted with the patient. She could not state the current/past [place] Presidents., but was able to recall 1/3 numbers within 5 mins. Per collateral information from her daughter Sparkle Gregory at [phone], she stated that her mother is at her baseline today. She stated that her mother sounds much better today than other days. She stated that her mother may have fell and fx her hip because she took a Klonopin prior to her admission to [facility]. She stated that her mother medications is managed by her PCP. She stated hat her mother do not have a psychiatrist at this time. The patient denies SI/HI's and AVH's. Mental Status Exam - Vital signs Last Vital Signs Temp 98.0 F 03/30/18 12:43 Pulse 90 03/30/18 12:43 Resp 18 03/30/18 12:43 BP 103/62 03/30/18 12:43 Pulse Ox 100 03/30/18 12:43 - Exam Narrative exam: MSE: Appearance: calm, cooperative Behavior: regular eye contact Speech: regular rate and tone Mood: "okay" Affect: congruent to mood Thought Process: circumstantial Thought Content: denies SI/HI's and AVH's Motor Activity: ambulatory Cognition: A/O x3, with slight confusion Insight: variable to fair Judgment: fair Assessment and Plan Impression: Hx of Neurocognitive Disorder. Today the patent is calm and cooperative with slight confusion during the assessment. Recommendation/Plan: Discussed risk/benefits of Aricept with the patient's daughter Sparkle Gregory ([phone]). Start Haldol 2 mg PO Q6hrs PRN for acute agitation. The patient's daughter do not want her mother taking any new medications at this time. Discussed risk/benefits of Aricept with the patient's daughter Ms Sparkle Gregory. Discussed with the assigned hospitalist the request of the patient's daughter reference new medications. Psy sign off. Recommend Delirium precautions below: 1. Frequently reorient patient and involve him/her in their care (simple explanations of procedures, tests, medications). 2. Lights on and shades open during daytime hours. 3. Write date and goals of care in a visible place. 4. Try to avoid unnecessary interruptions to sleep during nighttime hours. 5. Obtain glasses, hearing aids from home if patient uses these at baseline. 6. Avoid medications that may exacerbate delirium (especially narcotics, benzodiazepines, barbiturates, ambien, lunesta, and medications with excessive anticholinergic properties). Recommend Tylenol or a NSAID for pain, the patient has Morphine/Dilaudid on her APR. Dispo:: The patient can follow up with [facility] for outpatient psy services. Staffed with Dr Scott.
--- NOTE | 2018-03-30 15:33 | Progress Note ---
Assessment and Plan s/p IM nailing left hip fracture doing well continue physical therapy for gait training may dc to home or SNF when medically stable F/u in clinic, remove naye at 2 wks post op Subjective Date of service: 03/30/18 Interval history: no c/o's noted... Objective Vital signs: Vital Signs - 12hr 03/30/18 03/30/18 03/30/18 05:15 07:48 10:32 Temperature 98.6 F 98.0 F Pulse Rate 98 H 97 H 97 H Respiratory 17 20 Rate Blood Pressure 118/55 112/51 112/51 O2 Sat by Pulse 100 100 Oximetry 03/30/18 12:43 Temperature 98.0 F Pulse Rate 90 Respiratory 18 Rate Blood Pressure 103/62 O2 Sat by Pulse 100 Oximetry Narrative Exam: left hip - incision healing well, moderate swelling, no sign of infection - Labs CBC & BMP: 03/24/18 04:08 03/22/18 18:05 Labs: Abnormal lab results 03/29/18 03/29/18 03/30/18 Range/Units 17:52 22:27 05:24 PT 17.1 H (12.2-14.9) Sec. INR 1.35 H (0.87-1.13) POC Glucose 198 H 295 H (70-105) 03/30/18 03/30/18 Range/Units 06:35 12:43 PT (12.2-14.9) Sec. INR (0.87-1.13) POC Glucose 174 H 198 H (70-105)
[2018-03-30] MEDS ORDERED: HALDOL PO PRN (15:40)
[2018-03-30] MEDS: COUMADIN PO SCH (16:28)
[2018-03-30] MEDS: LANTUS SUB-Q SCH (22:01)
[2018-03-30] MEDS: LOVENOX SUB-Q SCH (22:02)
[2018-03-31 05:49] LABS: INR 1.89 (0.87-1.13)
[2018-03-31] MEDS: NACL 0.9% 1000 ML 1,000 ML IV SCH (05:57)
[2018-03-31] MEDS: HumaLOG SUB-Q SCH ×4 (08:44→23:42)
--- NOTE | 2018-03-31 09:28 | Progress Note ---
Assessment and Plan Hip fracture s/t fall status post hip surgery New atrial fibrillation normal TSH on amiodarone and metoprolol for rate control initiated on warfarin for oral anticoagulation therapy Hypertension Diabetes Dementia Echocardiogram reports mild aortic stenosis, normal LVEF 60-65%. Conservative medical therapy for atrial fibrillation, with a rate control strategy. Subjective Date of service: 03/31/18 Interval history: Alert with some confusion. Patient has no complaints. Objective Vital Signs Temp Pulse Resp BP Pulse Ox 03/31/18 08:11 97.9 F 129 H 20 122/64 97 03/31/18 05:51 97.6 F 94 H 16 126/67 99 03/31/18 04:00 106 H 03/31/18 00:26 98.0 F 89 17 132/58 98 03/30/18 20:43 98.0 F 100 H 17 127/60 99 03/30/18 15:51 98.9 F 116 H 16 103/48 95 03/30/18 12:43 98.0 F 90 18 103/62 100 03/30/18 10:32 97 H 112/51 - Physical Examination General: No Apparent Distress HEENT: Positive: PERRL Cardiac: Positive: irregularly irregular Lungs: Positive: Decreased Breath Sounds - Labs and Meds Coagulation 03/31/18 Range/Units 05:04 PT 22.1 H (12.2-14.9) Sec. INR 1.89 H (0.87-1.13)
[2018-03-31] MEDS: CORDARONE PO SCH (11:52)
[2018-03-31] MEDS: HALFPRIN EC PO SCH (11:52)
[2018-03-31] MEDS: ROCEPHIN/NS 1 GM/50 ML 1 GM/50 ML BAG IV SCH (11:53)
[2018-03-31] MEDS: LOPRESSOR PO SCH ×3 (11:53→23:42)
--- NOTE | 2018-03-31 14:25 | Progress Note ---
Assessment and Plan Assessment and plan: 78F who got dizzy and fell, broke her left hip, she denied LOC Diagnosis Femur fracture, left HTN (hypertension) Diabetes with Hyperglycemia UTI -A. fib with RVR and hypercoagulable states Dementia with behavioral disturbance PLAN -Sp external fixation with nailing of hip 03/23 optimize meds for chronic conditions optimise insulins Rocephin needs 7 days of abx, urine culture grew multiple organism -Rate control medications per cardiology, now off dilt drip, TSH normal, echocardiogram shows preserved EF, anticoagulation for stroke prophylaxis per cardiology, now on warfarin -optimize HR control meds -she has dementia with behavioral disturbance at baseline zyprexa prn, MH consult appreciated, she is calmer now, daughter does not want her put on any new psych meds -Dispo to [facility] when HR is better controlled DVT prophylaxis; chemical History Interval history: left hip pain is improved, she was tachycardic last night Review of systems Constitutional: No fevers, no malaise, no joint pains CVS: No chest pain, no orthopnea, no dyspnea on exertion, no pedal edema GI: No abdominal pain, no diarrhea, no vomiting, no constipation Respiratory: No shortness of breath, no wheezing, no coughing Hospitalist Physical - Physical exam Narrative exam: General.: Appears well, no distress, nontoxic HEENT: Moist mucous membranes, extraocular muscles intact, no lymphadenopathy Neck: supple Cardiac: S1-S2 heard Lungs: clear to auscultation bilaterally Abdomen: soft , nontender, nondistended, bowel sounds positive Extremities: no edema clubbing or cyanosis Skin: no rash or lesions Neurologic: no gross focal deficits Psych: calm and cooperative, very poor insight - Constitutional Vitals: Temp Pulse Resp BP Pulse Ox 97.9 F 129 H 20 122/64 97 03/31/18 08:11 03/31/18 08:11 03/31/18 08:11 03/31/18 08:11 03/31/18 08:11 General appearance: Present: mild distress, obese Results - Labs CBC & Chem 7: 03/24/18 04:08 03/22/18 18:05 Labs: Laboratory Last Values WBC 8.2 K/mm3 (4.5-11.0) 03/22/18 18:05 RBC 4.47 M/mm3 (3.65-5.03) 03/22/18 18:05 Hgb 9.2 gm/dl (10.1-14.3) L D 03/24/18 04:08 POC Hgb 9.9 (12-17) L 03/23/18 17:04 Hct 27.7 % (30.3-42.9) L D 03/24/18 04:08 POC Hct 29 (38-51) L 03/23/18 17:04 MCV 86 fl (79-97) 03/22/18 18:05 MCH 29 pg (28-32) 03/22/18 18:05 MCHC 34 % (30-34) 03/22/18 18:05 RDW 13.6 % (13.2-15.2) 03/22/18 18:05 Plt Count 171 K/mm3 (140-440) 03/22/18 18:05 Lymph % (Auto) 11.5 % (13.4-35.0) L 03/22/18 18:05 [place] % (Auto) 4.8 % (0.0-7.3) 03/22/18 18:05 Eos % (Auto) 0.6 % (0.0-4.3) 03/22/18 18:05 Baso % (Auto) 0.2 % (0.0-1.8) 03/22/18 18:05 Lymph # 0.9 K/mm3 (1.2-5.4) L 03/22/18 18:05 [place] # 0.4 K/mm3 (0.0-0.8) 03/22/18 18:05 Eos # 0.0 K/mm3 (0.0-0.4) 03/22/18 18:05 Baso # 0.0 K/mm3 (0.0-0.1) 03/22/18 18:05 Seg Neutrophils % 82.9 % (40.0-70.0) H 03/22/18 18:05 Seg Neutrophils # 6.8 K/mm3 (1.8-7.7) 03/22/18 18:05 PT 22.1 Sec. (12.2-14.9) H 03/31/18 05:04 INR 1.89 (0.87-1.13) H 03/31/18 05:04 APTT 32.7 Sec. (24.2-36.6) 03/22/18 18:05 Thrombin Time 18.5 Sec. (15.1-19.6) 03/22/18 18:05 POC Sodium 139 mmol/L (138-146) 03/23/18 17:04 POC Potassium 4.1 (3.5-4.9) 03/23/18 17:04 POC Chloride 103 (98-109) 03/23/18 17:04 Sodium 134 mmol/L (137-145) L 03/22/18 18:05 Potassium 3.8 mmol/L (3.6-5.0) 03/22/18 18:05 Chloride 93.5 mmol/L (98-107) L 03/22/18 18:05 Carbon Dioxide 24 mmol/L (22-30) 03/22/18 18:05 Anion Gap 20 mmol/L 03/22/18 18:05 POC BUN 19 mg/dl (8-26) 03/23/18 17:04 BUN 17 mg/dL (7-17) 03/22/18 18:05 Creatinine 0.8 mg/dL (0.7-1.2) 03/22/18 18:05 Estimated GFR > 60 ml/min 03/22/18 18:05 BUN/Creatinine Ratio 21 % 03/22/18 18:05 Glucose 316 mg/dL (65-100) H 03/22/18 18:05 POC Glucose 206 (70-105) H 03/31/18 12:21 Hemoglobin A1c 10.9 % (4-6) H 03/24/18 04:08 Calcium 9.2 mg/dL (8.4-10.2) 03/22/18 18:05 Magnesium 1.60 mg/dL (1.7-2.3) L 03/22/18 18:05 Total Bilirubin 0.60 mg/dL (0.1-1.2) 03/22/18 18:05 AST 14 units/L (5-40) 03/22/18 18:05 ALT 9 units/L (7-56) 03/22/18 18:05 Alkaline Phosphatase 111 units/L (35-129) 03/22/18 18:05 Total Creatine Kinase 67 units/L (30-135) 03/22/18 18:05 CK-MB (CK-2) 1.8 ng/mL (0.0-4.0) 03/22/18 18:05 CK-MB (CK-2) Rel Index 2.6 (0-4) 03/22/18 18:05 Troponin T < 0.010 ng/mL (0.00-0.029) 03/22/18 18:05 Total Protein 7.7 g/dL (6.3-8.2) 03/22/18 18:05 Albumin 4.2 g/dL (3.9-5) 03/22/18 18:05 Albumin/Globulin Ratio 1.2 % 03/22/18 18:05 TSH 1.960 mlU/mL (0.270-4.200) 03/22/18 18:05 Urine Color Yellow (Yellow) 03/23/18 02:50 Urine Turbidity Cloudy (Clear) 03/23/18 02:50 Urine pH 5.0 (5.0-7.0) 03/23/18 02:50 Ur Specific [place] 1.017 (1.003-1.030) 03/23/18 02:50 Urine Protein <15 mg/dl mg/dL (Negative) 03/23/18 02:50 Urine Glucose (UA) >=500 mg/dL (Negative) 03/23/18 02:50 Urine Ketones Tr mg/dL (Negative) 03/23/18 02:50 Urine Blood Sm (Negative) 03/23/18 02:50 Urine Nitrite Pos (Negative) 03/23/18 02:50 Urine Bilirubin Neg (Negative) 03/23/18 02:50 Urine Urobilinogen < 2.0 mg/dL (<2.0) 03/23/18 02:50 Ur Leukocyte Esterase Lg (Negative) 03/23/18 02:50 Urine WBC (Auto) 76.0 /HPF (0.0-6.0) H 03/23/18 02:50 Urine RBC (Auto) 4.0 /HPF (0.0-6.0) 03/23/18 02:50 U Epithel Cells (Auto) < 1.0 /HPF (0-13.0) 03/23/18 02:50 Urine Bacteria (Auto) 2+ /HPF (Negative) 03/23/18 02:50 Urine WBC Clumps 3+ /HPF 01/24/19 02:50 Uric Acid Crystals Few 03/23/18 02:50 Urine Mucus Few /HPF 03/23/18 02:50 Blood Type A POSITIVE 03/23/18 17:10 Antibody Screen Negative 03/23/18 17:10 Nutrition/Malnutrition Assess - Dietary Evaluation Nutrition/Malnutrition Findings: Nutrition Notes Start: 03/29/18 15:05 Freq: Status: Active Protocol: Document 03/31/18 11:31 CT (Rec: 03/31/18 12:21 CT [id number]) Co-Sign 03/31/18 11:31 LP Nutrition Notes Initial or Follow up Assessment Current Diagnosis Diabetes Hypertension Other Pertinent Diagnosis L hip wound, Femur fracture, Dementia Current Diet Consistent CHO Labs/Tests POC glucose: 150 Pertinent Medications Reviewed Height 5 ft 2 in Weight 77.1 kg [place] Body Weight (kg) 50.00 BMI 31.1 Subjective/Other Information 0% of breakfast eaten. Four unopened ONS at bedside. Pt stated she does not like them. Pt confused and stated ONS was not good for her. Decreasing ONS frequency. Burn Absent Trauma Absent #1 Nutrition Diagnosis Inadequate oral intake Diagnosis Progress(for reassessment Continues documentation) Is patient on ventilator? No Is Patient Ambulatory and/or Out of Bed No REE-([facility]-confined to bed) 1451.664 Calculation Used for Recommendations Kcal/kg Additional Notes Protein Needs: 77-96g (1.2-1. 5g/kg 64 kg adjBW) Fluid Needs: 1 ml/kcal Nutrition Intervention Change Diet Order: Continue current Add Supplement/Snack (indicate name/kcal Glucerna daily /protein ) Provides kCal: 220 Provides Protein (gm) 10 Goal #1 Meet at least 75% of calorie and protein needs via PO and ONS intakes Anticipated Discharge Needs: Consistent Carb Follow-Up By: 04/04/18 Additional Comments F/U: PO and ONS intake
[2018-03-31 15:29] LABS: Basophils % (Auto) 0.2 % (0.0-1.8); Eosinophils # (Auto) 0.1 K/mm3 (0.0-0.4); Eosinophils % (Auto) 1.4 % (0.0-4.3); Hematocrit 24.1 % (30.3-42.9); Lymphocytes # (Auto) 1.1 K/mm3 (1.2-5.4); Lymphocytes % (Auto) 13.9 % (13.4-35.0); Mean Corpuscular HGB Conc 33 % (30-34); Mean Corpuscular Volume 88 fl (79-97); Monocytes # (Auto) 0.5 K/mm3 (0.0-0.8); Monocytes % (Auto) 6.2 % (0.0-7.3); Platelet Count 280 K/mm3 (140-440); Red Blood Count 2.73 M/mm3 (3.65-5.03); Red Cell Distribution Width 14.9 % (13.2-15.2)
[2018-03-31 15:41] LABS: BUN/Creatinine Ratio 15; Blood Urea Nitrogen 12 mg/dL (7-17); Calcium 7.9 mg/dL (8.4-10.2); Hemolysis Index 1
--- NOTE | 2018-03-31 19:08 | Cat Scan Report ---
FINAL REPORT EXAM: CT ANGIO CHEST HISTORY: sob TECHNIQUE: Following administration of IV contrast axial helical imaging performed through the chest with sagittal and coronal reformatted images and maximum intensity projection images obtained. Comparison: Chest x-ray dated March 22, [address] abdomen and pelvis dated October 21, 2016 FINDINGS: Visualization of fine detail in portions of the chest is somewhat limited by motion artifact. There is no evidence of focal infiltrate, pneumothorax or pleural fluid collection. There atelectasis in the dependent portions of the lower lobes bilaterally. The trachea and bronchi are patent. The heart appears to be enlarged with atherosclerotic vascular calcification of the coronary arteries . The thoracic aorta is normal caliber with atherosclerotic vascular calcification. No filling defects are demonstrated within central pulmonary arteries to suggest the presence of cent ral pulmonary artery emboli. However, segmental pulmonary artery emboli could be missed or overcalled due to motion artifact. There is no evidence of intrathoracic adenopathy. The visualized portion of the upper abdomen is notable for mild prominence of the right renal collect ing system and left renal atrophy. The bony structures are notable for healing fractures of the posterior and posterior lateral aspect o f the right 8th and 9th ribs as was demonstrated on the previous chest x-ray. IMPRESSION: 1. Study somewhat degraded by motion artifact. 2. No evidence of central pulmonary artery emboli. However, segmental pulmonary artery emboli could b e missed or overcalled due to motion artifact. 3. Cardiomegaly with atherosclerotic vascular calcification of the coronary arteries. 4. Prominence of the right renal collecting system and left renal atrophy. These findings are new sin ce the previous CT abdomen and pelvis dated October 21, 2016. 5. Healing right-sided rib fractures.
[2018-03-31] MEDS: ULTRAM PO PRN (21:14)
[2018-03-31] MEDS: LOVENOX SUB-Q SCH (21:15)
[2018-03-31] MEDS: LANTUS SUB-Q SCH (21:17)
[2018-03-31] MEDS: SODIUM CHLORIDE FLUSH SYRINGE 10 ML IV SCH ×2 (21:17→23:41)
[2018-03-31] MEDS ORDERED: BENADRYL IV ONE (22:16)
[2018-03-31] MEDS: COUMADIN PO SCH (23:42)
[2018-04-01 06:30] LABS: Hematocrit 23.9 % (30.3-42.9); Hemoglobin 7.8 gm/dl (10.1-14.3)
[2018-04-01] MEDS: HumaLOG SUB-Q SCH ×4 (07:22→22:15)
[2018-04-01 07:29] LABS: INR 2.21 (0.87-1.13)
[2018-04-01] MEDS: HALFPRIN EC PO SCH (10:14)
[2018-04-01] MEDS: CORDARONE PO SCH (10:14)
[2018-04-01] MEDS: LOPRESSOR PO SCH ×3 (10:14→20:52)
[2018-04-01] MEDS: SODIUM CHLORIDE FLUSH SYRINGE 10 ML IV SCH ×2 (10:15→22:16)
--- NOTE | 2018-04-01 10:44 | Progress Note ---
Assessment and Plan - Patient Problems (1) Dementia Current Visit: Yes Status: Acute (2) Femur fracture, left Current Visit: Yes Status: Acute Qualifiers: Encounter type: initial encounter Femur location: lesser trochanter Fracture type: closed (3) HTN (hypertension) Current Visit: Yes Status: Acute Qualifiers: Hypertension type: essential hypertension Qualified Code(s): I10 - Essential (primary) hypertension (4) Rapid atrial fibrillation Current Visit: Yes Status: Acute Subjective Date of service: 04/01/18 Interval history: NO CV C\O Objective Vital Signs Temp Pulse Pulse Resp BP Pulse Ox 04/01/18 08:14 100 H 100 H 04/01/18 07:53 97.4 F L 74 12 127/87 100 04/01/18 04:22 98.3 F 82 14 132/72 91 03/31/18 23:34 98.1 F 117 H 19 170/79 100 03/31/18 21:14 97 H 132/75 03/31/18 20:00 82 97 03/31/18 19:57 113 H 03/31/18 19:40 98.1 F 16 132/75 - Physical Examination General: No Apparent Distress HEENT: Positive: PERRL Neck: Positive: neck supple Cardiac: Positive: Reg Rate and Rhythm Lungs: Positive: clear to auscultation Neuro: Positive: Grossly Intact Abdomen: Positive: Soft Skin: Positive: Clear Extremities: Absent: edema - Labs and Meds Coagulation 04/01/18 Range/Units 05:20 PT 24.9 H (12.2-14.9) Sec. INR 2.21 H (0.87-1.13) CBC 03/31/18 04/01/18 Range/Units 15:00 05:20 WBC 7.6 (4.5-11.0) K/mm3 RBC 2.73 L (3.65-5.03) M/mm3 Hgb 8.0 L 7.8 L (10.1-14.3) gm/dl Hct 24.1 L 23.9 L (30.3-42.9) % Plt Count 280 (140-440) K/mm3 Lymph # 1.1 L (1.2-5.4) K/mm3 [place] # 0.5 (0.0-0.8) K/mm3 Eos # 0.1 (0.0-0.4) K/mm3 Baso # 0.0 (0.0-0.1) K/mm3 Comprehensive Metabolic Panel 03/31/18 Range/Units 15:00 Sodium 140 (137-145) mmol/L Potassium 3.6 (3.6-5.0) mmol/L Chloride 104.7 (98-107) mmol/L Carbon Dioxide 26 (22-30) mmol/L BUN 12 (7-17) mg/dL Creatinine 0.8 (0.7-1.2) mg/dL Glucose 181 H (65-100) mg/dL Calcium 7.9 L (8.4-10.2) mg/dL
[2018-04-01] MEDS: ROCEPHIN/NS 1 GM/50 ML 1 GM/50 ML BAG IV SCH (11:01)
[2018-04-01] MEDS ORDERED: CITRATE OF MAGNESIA PO ONE (11:20)
[2018-04-01] MEDS ORDERED: COLACE PO ONE (11:26)
--- NOTE | 2018-04-01 15:08 | Progress Note ---
Assessment and Plan Assessment and plan: 78F who got dizzy and fell, broke her left hip, she denied LOC Diagnosis Femur fracture, left HTN (hypertension) Diabetes with Hyperglycemia UTI -A. fib with RVR and hypercoagulable states Dementia with behavioral disturbance PLAN -Sp external fixation with nailing of hip 03/23 optimize meds for chronic conditions optimised insulins She completed 7 days of antibiotics for treatment of UTI -, Heart rate remains uncontrolled, heart rate control per cardiology -She was started on Coumadin for stroke prophylaxis, now therapeutic -She exhibited some paranoia which had all tested is her baseline, her daughter does not want her to be put on any new behavioral medications. Continue supportive care -Dispo to [facility] when HR is better controlled DVT prophylaxis; chemical History Interval history: left hip pain is improved, she was tachycardic last night She is less paranoid today Review of systems Constitutional: No fevers, no malaise, no joint pains CVS: No chest pain, no orthopnea, no dyspnea on exertion, no pedal edema GI: No abdominal pain, no diarrhea, no vomiting, no constipation Respiratory: No shortness of breath, no wheezing, no coughing Hospitalist Physical - Physical exam Narrative exam: General.: Appears well, no distress, nontoxic HEENT: Moist mucous membranes, extraocular muscles intact, no lymphadenopathy Neck: supple Cardiac: S1-S2 heard Lungs: clear to auscultation bilaterally Abdomen: soft , nontender, nondistended, bowel sounds positive Extremities: no edema clubbing or cyanosis Skin: no rash or lesions Neurologic: no gross focal deficits Psych: paranoid, very poor insight - Constitutional Vitals: Temp Pulse Resp BP Pulse Ox 97.2 F L 120 H 14 119/79 91 04/01/18 13:26 04/01/18 13:26 04/01/18 13:26 04/01/18 13:26 04/01/18 13:26 General appearance: Present: mild distress, obese Results - Labs CBC & Chem 7: 04/01/18 05:20 03/31/18 15:00 Labs: Laboratory Last Values WBC 7.6 K/mm3 (4.5-11.0) 03/31/18 15:00 RBC 2.73 M/mm3 (3.65-5.03) L 03/31/18 15:00 Hgb 7.8 gm/dl (10.1-14.3) L 04/01/18 05:20 POC Hgb 9.9 (12-17) L 03/23/18 17:04 Hct 23.9 % (30.3-42.9) L 04/01/18 05:20 POC Hct 29 (38-51) L 03/23/18 17:04 MCV 88 fl (79-97) 03/31/18 15:00 MCH 29 pg (28-32) 03/31/18 15:00 MCHC 33 % (30-34) 03/31/18 15:00 RDW 14.9 % (13.2-15.2) 03/31/18 15:00 Plt Count 280 K/mm3 (140-440) 03/31/18 15:00 Lymph % (Auto) 13.9 % (13.4-35.0) 03/31/18 15:00 [place] % (Auto) 6.2 % (0.0-7.3) 03/31/18 15:00 Eos % (Auto) 1.4 % (0.0-4.3) 03/31/18 15:00 Baso % (Auto) 0.2 % (0.0-1.8) 03/31/18 15:00 Lymph # 1.1 K/mm3 (1.2-5.4) L 03/31/18 15:00 [place] # 0.5 K/mm3 (0.0-0.8) 03/31/18 15:00 Eos # 0.1 K/mm3 (0.0-0.4) 03/31/18 15:00 Baso # 0.0 K/mm3 (0.0-0.1) 03/31/18 15:00 Seg Neutrophils % 78.3 % (40.0-70.0) H 03/31/18 15:00 Seg Neutrophils # 5.9 K/mm3 (1.8-7.7) 03/31/18 15:00 PT 24.9 Sec. (12.2-14.9) H 04/01/18 05:20 INR 2.21 (0.87-1.13) H 04/01/18 05:20 APTT 32.7 Sec. (24.2-36.6) 03/22/18 18:05 Thrombin Time 18.5 Sec. (15.1-19.6) 03/22/18 18:05 POC Sodium 139 mmol/L (138-146) 03/23/18 17:04 POC Potassium 4.1 (3.5-4.9) 03/23/18 17:04 POC Chloride 103 (98-109) 03/23/18 17:04 Sodium 140 mmol/L (137-145) 03/31/18 15:00 Potassium 3.6 mmol/L (3.6-5.0) 03/31/18 15:00 Chloride 104.7 mmol/L (98-107) 03/31/18 15:00 Carbon Dioxide 26 mmol/L (22-30) 03/31/18 15:00 Anion Gap 13 mmol/L 03/31/18 15:00 POC BUN 19 mg/dl (8-26) 03/23/18 17:04 BUN 12 mg/dL (7-17) 03/31/18 15:00 Creatinine 0.8 mg/dL (0.7-1.2) 03/31/18 15:00 Estimated GFR > 60 ml/min 03/31/18 15:00 BUN/Creatinine Ratio 15 % 03/31/18 15:00 Glucose 181 mg/dL (65-100) H 03/31/18 15:00 POC Glucose 110 (70-105) H 04/01/18 11:05 Hemoglobin A1c 10.9 % (4-6) H 03/24/18 04:08 Calcium 7.9 mg/dL (8.4-10.2) L 03/31/18 15:00 Phosphorus 3.30 mg/dL (2.5-4.5) 03/31/18 15:00 Magnesium 1.70 mg/dL (1.7-2.3) 03/31/18 15:00 Total Bilirubin 0.60 mg/dL (0.1-1.2) 03/22/18 18:05 AST 14 units/L (5-40) 03/22/18 18:05 ALT 9 units/L (7-56) 03/22/18 18:05 Alkaline Phosphatase 111 units/L (35-129) 03/22/18 18:05 Total Creatine Kinase 67 units/L (30-135) 03/22/18 18:05 CK-MB (CK-2) 1.8 ng/mL (0.0-4.0) 03/22/18 18:05 CK-MB (CK-2) Rel Index 2.6 (0-4) 03/22/18 18:05 Troponin T < 0.010 ng/mL (0.00-0.029) 03/22/18 18:05 Total Protein 7.7 g/dL (6.3-8.2) 03/22/18 18:05 Albumin 4.2 g/dL (3.9-5) 03/22/18 18:05 Albumin/Globulin Ratio 1.2 % 03/22/18 18:05 TSH 1.960 mlU/mL (0.270-4.200) 03/22/18 18:05 Urine Color Yellow (Yellow) 03/23/18 02:50 Urine Turbidity Cloudy (Clear) 03/23/18 02:50 Urine pH 5.0 (5.0-7.0) 03/23/18 02:50 Ur Specific [place] 1.017 (1.003-1.030) 03/23/18 02:50 Urine Protein <15 mg/dl mg/dL (Negative) 03/23/18 02:50 Urine Glucose (UA) >=500 mg/dL (Negative) 03/23/18 02:50 Urine Ketones Tr mg/dL (Negative) 03/23/18 02:50 Urine Blood Sm (Negative) 03/23/18 02:50 Urine Nitrite Pos (Negative) 03/23/18 02:50 Urine Bilirubin Neg (Negative) 03/23/18 02:50 Urine Urobilinogen < 2.0 mg/dL (<2.0) 03/23/18 02:50 Ur Leukocyte Esterase Lg (Negative) 03/23/18 02:50 Urine WBC (Auto) 76.0 /HPF (0.0-6.0) H 03/23/18 02:50 Urine RBC (Auto) 4.0 /HPF (0.0-6.0) 03/23/18 02:50 U Epithel Cells (Auto) < 1.0 /HPF (0-13.0) 03/23/18 02:50 Urine Bacteria (Auto) 2+ /HPF (Negative) 03/23/18 02:50 Urine WBC Clumps 3+ /HPF 03/23/18 02:50 Uric Acid Crystals Few 03/23/18 02:50 Urine Mucus Few /HPF 03/23/18 02:50 Blood Type A POSITIVE 03/23/18 17:10 Antibody Screen Negative 03/23/18 17:10 Nutrition/Malnutrition Assess - Dietary Evaluation Nutrition/Malnutrition Findings: Nutrition Notes Start: 03/29/18 15:05 Freq: Status: Active Protocol: Document 03/31/18 11:31 CT (Rec: 03/31/18 12:21 CT [id number]) Co-Sign 03/31/18 11:31 LP Nutrition Notes Initial or Follow up Assessment Current Diagnosis Diabetes Hypertension Other Pertinent Diagnosis L hip wound, Femur fracture, Dementia Current Diet Consistent CHO Labs/Tests POC glucose: 150 Pertinent Medications Reviewed Height 5 ft 2 in Weight 77.1 kg [place] Body Weight (kg) 50.00 BMI 31.1 Subjective/Other Information 0% of breakfast eaten. Four unopened ONS at bedside. Pt stated she does not like them. Pt confused and stated ONS was not good for her. Decreasing ONS frequency. Burn Absent Trauma Absent #1 Nutrition Diagnosis Inadequate oral intake Diagnosis Progress(for reassessment Continues documentation) Is patient on ventilator? No Is Patient Ambulatory and/or Out of Bed No REE-([facility]-confined to bed) 1451.664 Calculation Used for Recommendations Kcal/kg Additional Notes Protein Needs: 77-96g (1.2-1. 5g/kg 64 kg adjBW) Fluid Needs: 1 ml/kcal Nutrition Intervention Change Diet Order: Continue current Add Supplement/Snack (indicate name/kcal Glucerna daily /protein ) Provides kCal: 220 Provides Protein (gm) 10 Goal #1 Meet at least 75% of calorie and protein needs via PO and ONS intakes Anticipated Discharge Needs: Consistent Carb Follow-Up By: 04/04/18 Additional Comments F/U: PO and ONS intake
[2018-04-01] MEDS: COUMADIN PO SCH (17:24)
[2018-04-01] MEDS: ULTRAM PO PRN (22:14)
[2018-04-01] MEDS: LANTUS SUB-Q SCH (22:16)
[2018-04-02 03:54] LABS: Basophils % (Auto) 0.4 % (0.0-1.8); Eosinophils # (Auto) 0.2 K/mm3 (0.0-0.4); Eosinophils % (Auto) 2.2 % (0.0-4.3); Hematocrit 24.9 % (30.3-42.9); Lymphocytes # (Auto) 1.2 K/mm3 (1.2-5.4); Lymphocytes % (Auto) 16.4 % (13.4-35.0); Mean Corpuscular HGB Conc 32 % (30-34); Mean Corpuscular Volume 88 fl (79-97); Monocytes # (Auto) 0.4 K/mm3 (0.0-0.8); Monocytes % (Auto) 6.2 % (0.0-7.3); Platelet Count 299 K/mm3 (140-440); Red Blood Count 2.84 M/mm3 (3.65-5.03); Red Cell Distribution Width 15.1 % (13.2-15.2)
[2018-04-02 04:00] LABS: INR 2.36 (0.87-1.13)
[2018-04-02] MEDS: HumaLOG SUB-Q SCH ×4 (07:22→22:14)
[2018-04-02] MEDS: LOPRESSOR PO SCH ×3 (10:15→20:43)
[2018-04-02] MEDS: CORDARONE PO SCH (10:15)
[2018-04-02] MEDS: HALFPRIN EC PO SCH (10:16)
[2018-04-02] MEDS: SODIUM CHLORIDE FLUSH SYRINGE 10 ML IV SCH ×2 (10:16→22:00)
--- NOTE | 2018-04-02 11:19 | Progress Note ---
Assessment and Plan Assessment and plan: 78F who got dizzy and fell, broke her left hip, she denied LOC Diagnosis Femur fracture, left HTN (hypertension) Diabetes with Hyperglycemia UTI -A. fib with RVR and hypercoagulable states Dementia with behavioral disturbance PLAN -Sp external fixation with nailing of hip 03/23 optimize meds for chronic conditions optimised insulins She completed 7 days of antibiotics for treatment of UTI -, Heart rate remains uncontrolled, heart rate control per cardiology -She was started on Coumadin for stroke prophylaxis, now therapeutic -She exhibited some paranoia which had all tested is her baseline, her daughter does not want her to be put on any new behavioral medications. Continue supportive care -Dispo to [facility] when HR is better controlled DVT prophylaxis; chemical History Interval history: left hip pain is improved, she was tachycardic last night She is less paranoid today Review of systems Constitutional: No fevers, no malaise, no joint pains CVS: No chest pain, no orthopnea, no dyspnea on exertion, no pedal edema GI: No abdominal pain, no diarrhea, no vomiting, no constipation Respiratory: No shortness of breath, no wheezing, no coughing Hospitalist Physical - Physical exam Narrative exam: General.: Appears well, no distress, nontoxic HEENT: Moist mucous membranes, extraocular muscles intact, no lymphadenopathy Neck: supple Cardiac: S1-S2 heard Lungs: clear to auscultation bilaterally Abdomen: soft , nontender, nondistended, bowel sounds positive Extremities: no edema clubbing or cyanosis Skin: no rash or lesions Neurologic: no gross focal deficits Psych: paranoid, very poor insight - Constitutional Vitals: Temp Pulse Resp BP Pulse Ox 97.8 F 109 H 12 123/64 98 04/02/18 04:17 04/02/18 10:00 04/02/18 04:17 04/02/18 04:17 04/02/18 04:17 General appearance: Present: mild distress, obese Results - Labs CBC & Chem 7: 04/02/18 02:41 03/31/18 15:00 Labs: Laboratory Last Values WBC 7.2 K/mm3 (4.5-11.0) 04/02/18 02:41 RBC 2.84 M/mm3 (3.65-5.03) L 04/02/18 02:41 Hgb 8.0 gm/dl (10.1-14.3) L 04/02/18 02:41 POC Hgb 9.9 (12-17) L 03/23/18 17:04 Hct 24.9 % (30.3-42.9) L 04/02/18 02:41 POC Hct 29 (38-51) L 03/23/18 17:04 MCV 88 fl (79-97) 04/02/18 02:41 MCH 28 pg (28-32) 04/02/18 02:41 MCHC 32 % (30-34) 04/02/18 02:41 RDW 15.1 % (13.2-15.2) 04/02/18 02:41 Plt Count 299 K/mm3 (140-440) 04/02/18 02:41 Lymph % (Auto) 16.4 % (13.4-35.0) 04/02/18 02:41 [place] % (Auto) 6.2 % (0.0-7.3) 04/02/18 02:41 Eos % (Auto) 2.2 % (0.0-4.3) 04/02/18 02:41 Baso % (Auto) 0.4 % (0.0-1.8) 04/02/18 02:41 Lymph # 1.2 K/mm3 (1.2-5.4) 04/02/18 02:41 [place] # 0.4 K/mm3 (0.0-0.8) 04/02/18 02:41 Eos # 0.2 K/mm3 (0.0-0.4) 04/02/18 02:41 Baso # 0.0 K/mm3 (0.0-0.1) 04/02/18 02:41 Seg Neutrophils % 74.8 % (40.0-70.0) H 04/02/18 02:41 Seg Neutrophils # 5.3 K/mm3 (1.8-7.7) 04/02/18 02:41 PT 26.2 Sec. (12.2-14.9) H 04/02/18 02:41 INR 2.36 (0.87-1.13) H 04/02/18 02:41 APTT 32.7 Sec. (24.2-36.6) 03/22/18 18:05 [place] Time 18.5 Sec. (15.1-19.6) 03/22/18 18:05 POC Sodium 139 mmol/L (138-146) 03/23/18 17:04 POC Potassium 4.1 (3.5-4.9) 03/23/18 17:04 POC Chloride 103 (98-109) 03/23/18 17:04 Sodium 140 mmol/L (137-145) 03/31/18 15:00 Potassium 3.6 mmol/L (3.6-5.0) 03/31/18 15:00 Chloride 104.7 mmol/L (98-107) 03/31/18 15:00 Carbon Dioxide 26 mmol/L (22-30) 03/31/18 15:00 Anion Gap 13 mmol/L 03/31/18 15:00 POC BUN 19 mg/dl (8-26) 03/23/18 17:04 BUN 12 mg/dL (7-17) 03/31/18 15:00 Creatinine 0.8 mg/dL (0.7-1.2) 03/31/18 15:00 Estimated GFR > 60 ml/min 03/31/18 15:00 BUN/Creatinine Ratio 15 % 03/31/18 15:00 Glucose 181 mg/dL (65-100) H 03/31/18 15:00 POC Glucose 139 (70-105) H 04/02/18 05:27 Hemoglobin A1c 10.9 % (4-6) H 03/24/18 04:08 Calcium 7.9 mg/dL (8.4-10.2) L 03/31/18 15:00 Phosphorus 3.30 mg/dL (2.5-4.5) 03/31/18 15:00 Magnesium 1.70 mg/dL (1.7-2.3) 03/31/18 15:00 Total Bilirubin 0.60 mg/dL (0.1-1.2) 03/22/18 18:05 AST 14 units/L (5-40) 03/22/18 18:05 ALT 9 units/L (7-56) 03/22/18 18:05 Alkaline Phosphatase 111 units/L (35-129) 03/22/18 18:05 Total Creatine Kinase 67 units/L (30-135) 03/22/18 18:05 CK-MB (CK-2) 1.8 ng/mL (0.0-4.0) 03/22/18 18:05 CK-MB (CK-2) Rel Index 2.6 (0-4) 03/22/18 18:05 Troponin T < 0.010 ng/mL (0.00-0.029) 03/22/18 18:05 Total Protein 7.7 g/dL (6.3-8.2) 03/22/18 18:05 Albumin 4.2 g/dL (3.9-5) 03/22/18 18:05 Albumin/Globulin Ratio 1.2 % 03/22/18 18:05 TSH 1.960 mlU/mL (0.270-4.200) 03/22/18 18:05 Urine Color Yellow (Yellow) 03/23/18 02:50 Urine Turbidity Cloudy (Clear) 03/23/18 02:50 Urine pH 5.0 (5.0-7.0) 03/23/18 02:50 Ur Specific [place] 1.017 (1.003-1.030) 03/23/18 02:50 Urine Protein <15 mg/dl mg/dL (Negative) 03/23/18 02:50 Urine Glucose (UA) >=500 mg/dL (Negative) 03/23/18 02:50 Urine Ketones Tr mg/dL (Negative) 03/23/18 02:50 Urine Blood Sm (Negative) 03/23/18 02:50 Urine Nitrite Pos (Negative) 03/23/18 02:50 Urine Bilirubin Neg (Negative) 03/23/18 02:50 Urine Urobilinogen < 2.0 mg/dL (<2.0) 03/23/18 02:50 Ur Leukocyte Esterase Lg (Negative) 03/23/18 02:50 Urine WBC (Auto) 76.0 /HPF (0.0-6.0) H 03/23/18 02:50 Urine RBC (Auto) 4.0 /HPF (0.0-6.0) 03/23/18 02:50 U Epithel Cells (Auto) < 1.0 /HPF (0-13.0) 03/23/18 02:50 Urine Bacteria (Auto) 2+ /HPF (Negative) 03/23/18 02:50 Urine WBC Clumps 3+ /HPF 01/24/19 02:50 Uric Acid Crystals Few 03/23/18 02:50 Urine Mucus Few /HPF 03/23/18 02:50 Blood Type A POSITIVE 03/23/18 17:10 Antibody Screen Negative 03/23/18 17:10 Nutrition/Malnutrition Assess - Dietary Evaluation Nutrition/Malnutrition Findings: Nutrition Notes Start: 03/29/18 15:05 Freq: Status: Active Protocol: Document 03/31/18 11:31 CT (Rec: 03/31/18 12:21 CT [id number]) Co-Sign 03/31/18 11:31 LP Nutrition Notes Initial or Follow up Assessment Current Diagnosis Diabetes Hypertension Other Pertinent Diagnosis L hip wound, Femur fracture, Dementia Current Diet Consistent CHO Labs/Tests POC glucose: 150 Pertinent Medications Reviewed Height 5 ft 2 in Weight 77.1 kg [place] Body Weight (kg) 50.00 BMI 31.1 Subjective/Other Information 0% of breakfast eaten. Four unopened ONS at bedside. Pt stated she does not like them. Pt confused and stated ONS was not good for her. Decreasing ONS frequency. Burn Absent Trauma Absent #1 Nutrition Diagnosis Inadequate oral intake Diagnosis Progress(for reassessment Continues documentation) Is patient on ventilator? No Is Patient Ambulatory and/or Out of Bed No REE-([facility]-confined to bed) 1451.664 Calculation Used for Recommendations Kcal/kg Additional Notes Protein Needs: 77-96g (1.2-1. 5g/kg 64 kg adjBW) Fluid Needs: 1 ml/kcal Nutrition Intervention Change Diet Order: Continue current Add Supplement/Snack (indicate name/kcal Glucerna daily /protein ) Provides kCal: 220 Provides Protein (gm) 10 Goal #1 Meet at least 75% of calorie and protein needs via PO and ONS intakes Anticipated Discharge Needs: Consistent Carb Follow-Up By: 04/04/18 Additional Comments F/U: PO and ONS intake
[2018-04-02] MEDS: ROCEPHIN/NS 1 GM/50 ML 1 GM/50 ML BAG IV SCH (12:15)
[2018-04-02] MEDS: COUMADIN PO SCH (17:08)
--- NOTE | 2018-04-02 18:39 | Progress Note ---
Assessment and Plan - Patient Problems (1) Dementia Current Visit: Yes Status: Acute (2) Femur fracture, left Current Visit: Yes Status: Acute Qualifiers: Encounter type: initial encounter Femur location: lesser trochanter Fracture type: closed (3) HTN (hypertension) Current Visit: Yes Status: Acute Qualifiers: Hypertension type: essential hypertension Qualified Code(s): I10 - Essential (primary) hypertension (4) Rapid atrial fibrillation Current Visit: Yes Status: Acute Subjective Date of service: 04/02/18 Interval history: NO CV C\O Objective Vital Signs Temp Pulse Pulse Resp BP BP Pulse Ox 04/02/18 17:29 98.1 F 102 H 124/61 04/02/18 10:00 109 H 109 H 04/02/18 04:17 97.8 F 82 12 123/64 98 04/02/18 04:14 94 H 04/01/18 23:20 98.2 F 111 H 15 120/56 99 04/01/18 22:00 117 H 04/01/18 20:52 107 H 115/58 04/01/18 19:44 97.8 F 107 H 16 115/58 99 - Physical Examination General: No Apparent Distress (CONFUSED) HEENT: Positive: PERRL Neck: Positive: neck supple Cardiac: Positive: Reg Rate and Rhythm Lungs: Positive: clear to auscultation Neuro: Positive: Grossly Intact Abdomen: Positive: Soft Skin: Positive: Clear Extremities: Present: normal. Absent: edema - Labs and Meds Coagulation 04/02/18 Range/Units 02:41 PT 26.2 H (12.2-14.9) Sec. INR 2.36 H (0.87-1.13) CBC 04/02/18 Range/Units 02:41 WBC 7.2 (4.5-11.0) K/mm3 RBC 2.84 L (3.65-5.03) M/mm3 Hgb 8.0 L (10.1-14.3) gm/dl Hct 24.9 L (30.3-42.9) % Plt Count 299 (140-440) K/mm3 Lymph # 1.2 (1.2-5.4) K/mm3 [place] # 0.4 (0.0-0.8) K/mm3 Eos # 0.2 (0.0-0.4) K/mm3 Baso # 0.0 (0.0-0.1) K/mm3
[2018-04-02] MEDS: LANTUS SUB-Q SCH (22:15)
[2018-04-03] MEDS: ULTRAM PO PRN (02:30)
[2018-04-03 05:39] LABS: Basophils % (Auto) 0.4 % (0.0-1.8); Eosinophils # (Auto) 0.2 K/mm3 (0.0-0.4); Eosinophils % (Auto) 2.4 % (0.0-4.3); Hematocrit 23.7 % (30.3-42.9); Hemoglobin 8.1 gm/dl (10.1-14.3); Lymphocytes # (Auto) 1.1 K/mm3 (1.2-5.4); Lymphocytes % (Auto) 15.4 % (13.4-35.0); Mean Corpuscular HGB Conc 34 % (30-34); Mean Corpuscular Volume 87 fl (79-97); Monocytes # (Auto) 0.5 K/mm3 (0.0-0.8); Monocytes % (Auto) 6.6 % (0.0-7.3); Platelet Count 320 K/mm3 (140-440); Red Blood Count 2.73 M/mm3 (3.65-5.03); Red Cell Distribution Width 14.8 % (13.2-15.2)
[2018-04-03 05:51] LABS: INR 2.64 (0.87-1.13)
[2018-04-03] MEDS: HumaLOG SUB-Q SCH ×3 (08:33→17:12)
[2018-04-03] MEDS: CORDARONE PO SCH (09:35)
[2018-04-03] MEDS: HALFPRIN EC PO SCH (09:35)
[2018-04-03] MEDS: ROCEPHIN/NS 1 GM/50 ML 1 GM/50 ML BAG IV SCH (09:35)
[2018-04-03] MEDS: LOPRESSOR PO SCH ×2 (09:36→13:53)
[2018-04-03] MEDS: SODIUM CHLORIDE FLUSH SYRINGE 10 ML IV SCH (09:40)
--- NOTE | 2018-04-03 10:09 | Progress Note ---
Addendum entered and electronically signed by THANG PERDOMO MD 04/03/18 18:09: We'll add digoxin therapy to optimize her atrial fibrillation rate control. Original Note: Assessment and Plan Hip fracture s/t fall status post hip surgery New atrial fibrillation normal TSH on amiodarone and metoprolol for rate control initiated on warfarin for oral anticoagulation therapy Hypertension Diabetes Dementia Echocardiogram reports mild aortic stenosis, normal LVEF 60-65%. Conservative medical therapy for atrial fibrillation, with a rate control strategy. Subjective Date of service: 04/03/18 Interval history: Patient is resting in bed comfortably. Afib with a well controlled ventricular rate on telemetry. Objective Vital Signs Temp Pulse Resp BP BP Pulse Ox 04/03/18 09:36 110 H 141/75 04/03/18 08:33 98.4 F 104 H 20 141/75 97 04/03/18 04:08 97.0 F L 104 H 18 132/66 96 04/02/18 23:52 98.0 F 84 18 124/55 100 04/02/18 20:43 100 H 123/62 04/02/18 19:25 85 04/02/18 19:22 98.0 F 100 H 18 123/62 99 04/02/18 17:29 98.1 F 102 H 124/61 - Physical Examination General: No Apparent Distress HEENT: Positive: PERRL Neck: Positive: trachea midline Cardiac: Positive: irregularly irregular Lungs: Positive: Decreased Breath Sounds Neuro: Positive: Grossly Intact Extremities: Absent: edema - Labs and Meds Coagulation 04/03/18 Range/Units 04:49 PT 28.5 H (12.2-14.9) Sec. INR 2.64 H (0.87-1.13) CBC 04/03/18 Range/Units 04:46 WBC 7.4 (4.5-11.0) K/mm3 RBC 2.73 L (3.65-5.03) M/mm3 Hgb 8.1 L (10.1-14.3) gm/dl Hct 23.7 L (30.3-42.9) % Plt Count 320 (140-440) K/mm3 Lymph # 1.1 L (1.2-5.4) K/mm3 [place] # 0.5 (0.0-0.8) K/mm3 Eos # 0.2 (0.0-0.4) K/mm3 Baso # 0.0 (0.0-0.1) K/mm3
--- NOTE | 2018-04-03 10:36 | Discharge Summary ---
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:: FIRE ALARM DISPATCHER 03/23/18 21:48 Physical Therapy Evaluation and Treat [CONS] Routine Comment: Reason For Exam: postop evaluation Weight bearing status?: Partial wt bearing Assistive devices?: Yes If so list: Walker 03/26/18 08:03 Consult to Physician [CONS] Routine Comment: Consulting Provider: THANG PERDOMO Physician Instructions: Reason For Exam: afib 03/27/18 12:50 Consult to Mental Health [CONS] Routine Reason For Exam: behavioral disturbance Place consult to:: [facility] Notified:: yes Primary care physician: MEAT TRIMMER Hospitalization Condition: Fair Hospital course: 78F who got dizzy and fell, broke her left hip, she denied LOC Diagnosis Femur fracture, left HTN (hypertension) Diabetes with Hyperglycemia UTI -A. fib with RVR and hypercoagulable states Dementia with behavioral disturbance PLAN -Sp external fixation with nailing of hip 03/23 optimize meds for chronic conditions optimised insulins She completed 7 days of antibiotics for treatment of UTI -, Heart rate remains uncontrolled, heart rate control per cardiology -She was started on Coumadin for stroke prophylaxis, now therapeutic -She exhibited some paranoia which per her daughter is her baseline, her daughter does not want her to be put on any new behavioral medications. Continue supportive care -She was planned for dc to [facility], but daughter refused and elected to take her home Disposition: DC-01 TO HOME OR SELFCARE Time spent for discharge: 33 mins Core Measure Documentation - Palliative Care Palliative Care/ Comfort Measures: Not Applicable - Core Measures Any of the following diagnoses?: none Exam - Physical Exam Narrative exam: General.: Appears well, no distress, nontoxic HEENT: Moist mucous membranes, extraocular muscles intact, no lymphadenopathy Neck: supple Cardiac: S1-S2 heard Lungs: clear to auscultation bilaterally Abdomen: soft , nontender, nondistended, bowel sounds positive Extremities: no edema clubbing or cyanosis Skin: no rash or lesions Neurologic: no gross focal deficits Psych: paranoid, very poor insight - Constitutional Vitals: Temp Pulse Resp BP Pulse Ox 98.4 F 110 H 20 141/75 97 04/03/18 08:33 04/03/18 09:36 04/03/18 08:33 04/03/18 09:36 04/03/18 08:33 Plan Follow up with: THANG PERDOMO MD [Staff Physician] - 7 Days PRIMARY CAREMD [Primary Care Provider] - 3-5 Days GWENDOLYN SAENZ MD [Staff Physician] - 7 Days Forms: Warfarin Discharge Instruction Prescriptions: RX: HYDROcodone/APAP 7.5-325 [[place] 7.5-325 mg TAB] 1 each PO Q6HR PRN #20 tablet PRN Reason: Pain
[2018-04-03] MEDS: LANOXIN IV SCH ×2 (13:47→18:24)
[2018-04-03] MEDS: COUMADIN PO SCH (17:15)
[2018-04-03 20:04] VITALS: BP 133/65
[2018-04-04] MEDS ORDERED: LANOXIN PO SCH (17:00)
== END 2018-04-03 19:55 | disposition home health service (06) | DRG 481 ==
LOC: ED 16:47 → 3B-SURG 20:46 → 4A 03-25 21:30
PROVIDERS: ADMIT Internal Medicine; ATTEND Internal Medicine
PROC: 0QS736Z Reposition Left Upper Femur with Intramedullary Internal Fixation Device, Percutaneous Approach (ICD-10-PCS; principal; 2018-03-23)
DX: S72.92XA Unspecified fracture of left femur, initial encounter for closed fracture (principal); N39.0 Urinary tract infection, site not specified; D68.59 Other primary thrombophilia; F03.91 Unspecified dementia, unspecified severity, with behavioral disturbance; I10 Essential (primary) hypertension; W18.39XA Other fall on same level, initial encounter; Y93.89 Activity, other specified; Y92.89 Other specified places as the place of occurrence of the external cause; Y99.8 Other external cause status; Z79.4 Long term (current) use of insulin; Z96.652 Presence of left artificial knee joint; E83.42 Hypomagnesemia; R42 Dizziness and giddiness; M19.90 Unspecified osteoarthritis, unspecified site; E66.9 Obesity, unspecified; Z68.32 Body mass index [BMI] 32.0-32.9, adult; Z83.3 Family history of diabetes mellitus; Z82.49 Family history of ischemic heart disease and other diseases of the circulatory system; E11.65 Type 2 diabetes mellitus with hyperglycemia; I48.91 Unspecified atrial fibrillation; D64.9 Anemia, unspecified
CPT/HCPCS: 36415; 70450; 71045; 71275; 72170; 80048; 80053; 81001; 82550; 82553; 82803; 82962; 83036; 83735; 84100; 84443; 84484; 85014; 85018; 85025; 85610; 85670; 85730; 86850; 86900; 86901; 87086; 93005; 93010; 93306; G0378; C1713; C1769; J0282; J0360; J0690; J0696; J1100; J1160; J1170; J1200; J1650; J1815; J2250; J2370; J2405; J2704; J3010; J3475; J7030; J7040; Q9967

== ENCOUNTER 2018-04-16 09:45 | Inpatient (IN) | payer MEDICARE ==
--- NOTE | 2018-04-16 10:22 | Emergency Department Report ---
HPI - General Chief Complaint: GI Bleed Time Seen by Provider: 04/16/18 10:05 - HPI HPI: Room 22 The patient is a old female presented with a chief complaint of rectal bleeding. [facility]. Patient states she was rectal bleeding since yesterday. Patient complains of diffuse weakness but denies abdominal pain nausea/vomiting or shortness of breath. Patient denies chest pain ED Past Medical Hx - Past Medical History Hx Hypertension: Yes Hx Diabetes: Yes Hx Arthritis: Yes Hx Kidney Stones: Yes Hx Dementia: Yes - Surgical History Additional Surgical History: left knee replacement 2009. Lithotripsy in the past - Family History Family history: no significant - Social History Smoking Status: Never Smoker Substance Use Type: None - Medications Home Medications: Home Medications Medication Instructions Recorded Confirmed Last Taken Type Amiodarone [Cordarone 200 MG TAB] 200 mg PO QDAY tablet 04/03/18 Unknown Rx Aspirin EC [Aspirin Enteric Coated 81 mg PO QDAY tablet 04/03/18 Unknown Rx TAB] HYDROcodone/APAP 7.5-325 [[place] 1 each PO Q6HR PRN #20 tablet 04/03/18 Unknown Rx 7.5-325 mg TAB] Haloperidol [Haldol] 2 mg PO Q6H PRN tablet 04/03/18 Unknown Rx Insulin Glargine [Lantus VIAL] 30 units SUB-Q QHS units 04/03/18 Unknown Rx Lispro Insulin [Humalog] 0 unit SUB-Q ACHS units 04/03/18 Unknown Rx Metoprolol [Lopressor TAB] 50 mg PO TID tablet 04/03/18 Unknown Rx Warfarin [Coumadin] 4 mg PO DAILY@1700 tablet 04/03/18 Unknown Rx ED Review of Systems ROS: Stated complaint: RECTAL BLEEDING Other details as noted in HPI Constitutional: weakness Eyes: denies: eye pain ENT: denies: throat pain Respiratory: denies: shortness of breath Cardiovascular: denies: chest pain Endocrine: no symptoms reported Gastrointestinal: hematochezia. denies: abdominal pain, nausea, vomiting Genitourinary: denies: dysuria Musculoskeletal: denies: back pain Neurological: denies: headache Physical Exam - Physical Exam Vital Signs: Vital Signs 04/16/18 10:00 Temperature 97.5 F L Pulse Rate 109 H Respiratory 16 Rate Blood Pressure 107/55 O2 Sat by Pulse 96 Oximetry Physical Exam: GENERAL: The patient is well-developed well-nourished female lying on stretcher not appearing to be in acute distress. [] HEENT: Normocephalic. Atraumatic. Extraocular motions are intact. Patient has moist mucous membranes. NECK: Supple. Trachea midline CHEST/LUNGS: Clear to auscultation. There is no respiratory distress noted. HEART/CARDIOVASCULAR: Regular. There is tachycardia. There is no gallop rub or murmur. ABDOMEN: Abdomen is soft, with mild discomfort to palpation in the left lower quadrant. There is no rebound or guarding. Patient has normal bowel sounds. There is no abdominal distention. SKIN: There is no rash. There is no edema. There is no diaphoresis. NEURO: The patient is awake, alert, and oriented. The patient is cooperative. The patient has normal speech MUSCULOSKELETAL: There is no evidence of acute injury. RECTAL: Gross bright red blood in diaper ED Course Vital Signs 04/16/18 10:00 Temperature 97.5 F L Pulse Rate 109 H Respiratory 16 Rate Blood Pressure 107/55 O2 Sat by Pulse 96 Oximetry - Consultations Consultation #1: 04/16/18 11:24 GI paged 04/16/18 11:[address] Hanson-will evaluate. Recommends PPI BID ED Medical Decision Making - Lab Data Result diagrams: 04/16/18 10:15 04/16/18 10:15 Laboratory Tests 04/16/18 04/16/18 04/16/18 10:15 10:15 10:15 WBC 7.1 RBC 3.55 L Hgb 9.9 L Hct 30.4 MCV 86 MCH 28 MCHC 33 RDW 15.3 H Plt Count 335 Lymph % (Auto) 20.1 [place] % (Auto) 5.9 Eos % (Auto) 3.1 Baso % (Auto) 0.6 Lymph # 1.4 [place] # 0.4 Eos # 0.2 Baso # 0.0 Seg Neutrophils % 70.3 H Seg Neutrophils # 5.0 PT 75.7 H INR 8.33 H* APTT 107.1 H* Sodium 138 Potassium 4.1 Chloride 100.2 Carbon Dioxide 22 Anion Gap 20 BUN 29 H Creatinine 1.2 Estimated GFR 43 BUN/Creatinine Ratio 24 Glucose 152 H Calcium 8.6 Total Bilirubin 0.70 AST 18 ALT 8 Alkaline Phosphatase 142 H Total Protein 6.8 Albumin 3.0 L Albumin/Globulin Ratio 0.8 Blood Type Antibody Screen Crossmatch 04/16/18 10:15 WBC RBC Hgb Hct MCV MCH MCHC RDW Plt Count Lymph % (Auto) [place] % (Auto) Eos % (Auto) Baso % (Auto) Lymph # [place] # Eos # Baso # Seg Neutrophils % Seg Neutrophils # PT INR APTT Sodium Potassium Chloride Carbon Dioxide Anion Gap BUN Creatinine Estimated GFR BUN/Creatinine Ratio Glucose Calcium Total Bilirubin AST ALT Alkaline Phosphatase Total Protein Albumin Albumin/Globulin Ratio Blood Type A POSITIVE Antibody Screen Negative Crossmatch See Detail - EKG Data -: EKG Interpreted by Me Rate: tachycardia (110 bpm) - EKG Data When compared to previous EKG there are: previous EKG unavailable Interpretation: other (atrial fibrillation with a rapid ventricular response) - Differential Diagnosis diverticulosis, hemorrhoids Critical Care Time: Yes Critical care time in (mins) excluding proc time.: 30 Critical care attestation.: If time is entered above; I have spent that time in minutes in the direct care of this critically ill patient, excluding procedure time. ED Disposition Clinical Impression: GI bleed, Coumadin toxicity, Rapid atrial fibrillation Disposition: -09 OP ADMIT IP TO THIS HOSP Is pt being admited?: Yes Does the pt Need Aspirin: No Condition: Serious Referrals: SALVADOR HERRERA [Primary Care Provider] - 3-5 Days Forms: Accompanied Note Time of Disposition: 11:34 (hospitalist paged (Dr Brown))
[2018-04-16 10:38] LABS: Basophils % (Auto) 0.6 % (0.0-1.8); Eosinophils # (Auto) 0.2 K/mm3 (0.0-0.4); Eosinophils % (Auto) 3.1 % (0.0-4.3); Hematocrit 30.4 % (30.3-42.9); Hemoglobin 9.9 gm/dl (10.1-14.3); Lymphocytes # (Auto) 1.4 K/mm3 (1.2-5.4); Lymphocytes % (Auto) 20.1 % (13.4-35.0); Mean Corpuscular HGB Conc 33 % (30-34); Mean Corpuscular Volume 86 fl (79-97); Monocytes # (Auto) 0.4 K/mm3 (0.0-0.8); Monocytes % (Auto) 5.9 % (0.0-7.3); Platelet Count 335 K/mm3 (140-440); Red Blood Count 3.55 M/mm3 (3.65-5.03); Red Cell Distribution Width 15.3 % (13.2-15.2)
[2018-04-16] MEDS ORDERED: NACL 0.9% 1000 ML 1,000 ML IV ONE ×2 (10:57→15:00)
[2018-04-16 11:04] LABS: Calcium 8.6 mg/dL (8.4-10.2)
[2018-04-16] MEDS ORDERED: NACL 0.9% 500 ML 500 ML IV ONE (11:23)
[2018-04-16 11:24] LABS: INR 8.33 (0.87-1.13); Partial Thromboplastin Time 107.1 Sec. (24.2-36.6)
[2018-04-16] MEDS ORDERED: PROTONIX IV ONE (11:33)
[2018-04-16] MEDS ORDERED: NACL 0.9% 250ML 250 ML ONE (13:08)
--- NOTE | 2018-04-16 14:51 | Gastroenterology Consultation ---
History of Present Illness - Reason for Consult Consult date: 04/16/18 rectal bleeding Requesting physician: LIU FRY - History of Present Illness This is a 78 yo female with pmh of afib on coumadin, DM, HTN, coming from [facility] for several days of rectal bleeding. Patient is alert and able to follow commands but is confused. Not able to give much history other than saying that she has passed blood per rectum for past several days. Denies abdominal pain, nausea/vomiting or fever. In the ED, Hgb noted at 9 and INR at 8. Patient started on PRBC transfusion. Noted to be tachycardic in 110s with afib and hypotensive, which responded to IVF. Past History Past Medical History: atrial fib, diabetes, hypertension Social history: other (from prison) Medications and Allergies Allergies Allergy/AdvReac Type Severity Reaction Status Date / Time No Known Allergies Allergy Unverified 11/19/12 14:52 Home Medications Medication Instructions Recorded Confirmed Last Taken Type Amiodarone [Cordarone 200 MG TAB] 200 mg PO QDAY tablet 04/03/18 Unknown Rx Aspirin EC [Aspirin Enteric Coated 81 mg PO QDAY tablet 04/03/18 Unknown Rx TAB] HYDROcodone/APAP 7.5-325 [[place] 1 each PO Q6HR PRN #20 tablet 04/03/18 Unknown Rx 7.5-325 mg TAB] Haloperidol [Haldol] 2 mg PO Q6H PRN tablet 04/03/18 Unknown Rx Insulin Glargine [Lantus VIAL] 30 units SUB-Q QHS units 04/03/18 Unknown Rx Lispro Insulin [Humalog] 0 unit SUB-Q ACHS units 04/03/18 Unknown Rx Metoprolol [Lopressor TAB] 50 mg PO TID tablet 04/03/18 Unknown Rx Warfarin [Coumadin] 4 mg PO DAILY@1700 tablet 04/03/18 Unknown Rx Review of Systems - Review of Systems ROS unobtainable: due to mental status Exam - Constitutional Vital Signs: Temp Pulse Resp BP Pulse Ox 97.6 F 129 H 10 L 85/41 96 04/16/18 14:03 04/16/18 14:24 04/16/18 14:24 04/16/18 14:24 04/16/18 14:24 General appearance: no acute distress - EENT Eyes: EOM intact ENT: hearing intact - Neck Neck: supple - Respiratory Respiratory effort: normal Respiratory: bilateral: CTA - Cardiovascular Rhythm: irregularly irregular Extremities: No edema - Gastrointestinal General gastrointestinal: Present: soft, non-tender, non-distended, normal bowel sounds - Integumentary Integumentary: Present: dry, pale - Neurologic Neurological: disoriented - Psychiatric Psychiatric: cooperative - Labs CBC & Chem 7: 04/16/18 10:15 04/16/18 10:15 Lab Results: Laboratory Results - last 24 hr 04/16/18 04/16/18 04/16/18 10:15 10:15 10:15 WBC 7.1 RBC 3.55 L Hgb 9.9 L Hct 30.4 MCV 86 MCH 28 MCHC 33 RDW 15.3 H Plt Count 335 Lymph % (Auto) 20.1 [place] % (Auto) 5.9 Eos % (Auto) 3.1 Baso % (Auto) 0.6 Lymph # 1.4 [place] # 0.4 Eos # 0.2 Baso # 0.0 Seg Neutrophils % 70.3 H Seg Neutrophils # 5.0 PT 75.7 H INR 8.33 H* APTT 107.1 H* Sodium 138 Potassium 4.1 Chloride 100.2 Carbon Dioxide 22 Anion Gap 20 BUN 29 H Creatinine 1.2 Estimated GFR 43 BUN/Creatinine Ratio 24 Glucose 152 H Calcium 8.6 Total Bilirubin 0.70 AST 18 ALT 8 Alkaline Phosphatase 142 H Total Protein 6.8 Albumin 3.0 L Albumin/Globulin Ratio 0.8 Blood Type Antibody Screen Crossmatch 04/16/18 10:15 WBC RBC Hgb Hct MCV MCH MCHC RDW Plt Count Lymph % (Auto) [place] % (Auto) Eos % (Auto) Baso % (Auto) Lymph # [place] # Eos # Baso # Seg Neutrophils % Seg Neutrophils # PT INR APTT Sodium Potassium Chloride Carbon Dioxide Anion Gap BUN Creatinine Estimated GFR BUN/Creatinine Ratio Glucose Calcium Total Bilirubin AST ALT Alkaline Phosphatase Total Protein Albumin Albumin/Globulin Ratio Blood Type A POSITIVE Antibody Screen Negative Crossmatch See Detail Assessment and Plan This is a 78 yo female with pmh of afib on coumadin, DM, HTN, coming from [facility] for several days of rectal bleeding. - Patient Problems (1) GI bleed Current Visit: Yes Status: Acute Plan to address problem: Rectal bleeding: likely lower GI bleed source in the setting of elevated INR at 8.3 on coumadin for afib. Rec: - fluid resuscitation with IVF bolus - PPI IV bid - FFP as ordered. INR goal <1.5 - monitor H/H serially and transfuse with Hgb goal >7. - will need further resuscitation and correction of coagulopathy prior to endoscopy. - keep NPO. - will follow. - attempted to reach family over the phone but both numbers listed not working.
[2018-04-16] MEDS ORDERED: VITAMIN K (ADULT ONLY) SUB-Q ONE (15:43)
[2018-04-16] MEDS: NACL 0.9% 1000 ML 1,000 ML IV SCH ×2 (17:28→23:51)
[2018-04-16 18:26] LABS: Hematocrit 23.8 % (30.3-42.9); Hemoglobin 7.7 gm/dl (10.1-14.3)
[2018-04-16] MEDS: ATIVAN IV PRN (20:32)
[2018-04-16] MEDS: PROTONIX IV SCH (22:45)
[2018-04-17 01:16] LABS: Hematocrit 23.4 % (30.3-42.9); Hemoglobin 7.7 gm/dl (10.1-14.3)
[2018-04-17] MEDS ORDERED: DILAUDID IV PRN (01:19)
[2018-04-17] MEDS ORDERED: TYLENOL PO PRN (01:19)
[2018-04-17] MEDS ORDERED: ZOFRAN IV PRN (01:19)
[2018-04-17] MEDS ORDERED: REGLAN IV PRN (01:19)
[2018-04-17] MEDS ORDERED: SODIUM CHLORIDE FLUSH SYRINGE 10 ML IV PRN (01:19)
--- NOTE | 2018-04-17 01:55 | Event Note ---
Date: 04/16/18 See Dictated H/p in reports GI Bleed HTN IDDM Coumadin Toxicity
[2018-04-17] MEDS: HumaLOG SUB-Q SCH ×4 (02:04→19:45)
[2018-04-17 02:09] LABS: Hematocrit 23.7 % (30.3-42.9); Hemoglobin 7.8 gm/dl (10.1-14.3)
--- NOTE | 2018-04-17 03:22 | History and Physical Report ---
CHIEF COMPLAINT: Lower GI bleed since yesterday. HISTORY OF PRESENT ILLNESS: A 78-year-old female sent from assisted for 2-3 episodes of bright red blood per rectum since yesterday. The patient also has diffuse weakness. No nausea, no vomiting. No syncope. Feels lightheaded. No chest pain. No exacerbating or relieving factors. The patient is on Coumadin for atrial fibrillation. PAST MEDICAL HISTORY: Significant for: 1. Hypertension. 2. Diabetes. 3. Arthritis. 4. Renal stones. 5. Dementia. PAST SURGICAL HISTORY: Left knee replacement in 2009 and lithotripsy. FAMILY HISTORY: No significant family history. SOCIAL HISTORY: Does not smoke. Lives in assisted. CURRENT MEDICATIONS: On the chart, including insulin Lantus 30 units subQ at bedtime. REVIEW OF SYSTEMS: Significant for rectal bleeding since yesterday. Otherwise, review of systems negative. PHYSICAL EXAMINATION: GENERAL: Elderly female, cooperative during examination. VITAL SIGNS: Blood pressure is 145/111, temperature is 98.1, pulse is 106, respirations 16. HEENT: Unremarkable. Pupils equal, reactive. NECK: Supple, no lymphadenopathy, no thyromegaly. LUNGS: Clear to auscultation and percussion. Good air entry. CARDIOVASCULAR: S1, S2 heard. No gallop, no murmur, no rub. Apical impulse in left fifth intercostal space and midclavicular line. ABDOMEN: Soft and benign. No hepatosplenomegaly. No guarding, no rigidity. Hernial orifices are normal. EXTREMITIES: Good pedal pulses. No pedal edema. CENTRAL NERVOUS SYSTEM: Alert and oriented x 4, nonfocal exam. SKIN: Normal. LABORATORY DATA: Significant for white count of 7100, H and H is 9.9 and 30.4, platelet count is 335,000. Protime is 75.7, INR is 8.33, PTT is 107.1. Sodium is 138, potassium is 4.1, chloride is 100.2, BUN and creatinine is 29 and 1.2, glucose is 152, albumin is 3.0. ASSESSMENT AND PLAN: 1. Lower gastrointestinal bleed. The patient to get colonoscopy and upper endoscopy if necessary. GI consult requested. Transfuse as necessary. Monitor hemoglobin and hematocrit. IV Protonix. Possibly secondary to Coumadin toxicity. 2. Coumadin toxicity. Vitamin K and FFP given. We will recheck the prothrombin time. 3. Insulin-dependent diabetes. Continue coverage. Lantus on hold. Check hemoglobin A1c. 4. Hypertension. We will hold the oral p.o. medications, Catapres patch initiated. TTS-2 weekly. 5. Atrial fibrillation. We will keep the Coumadin on hold and once stable, resume Coumadin at a lower dosage. The patient is on 4 mg once a day. 6. Deep venous thrombosis prophylaxis, sequential compression devices. The patient readmitted for closer monitoring. Critical care time 35 minutes. JOB# [id number] AMENA/NTS
[2018-04-17] MEDS ORDERED: LOPRESSOR IV ONE (06:02)
[2018-04-17 07:10] LABS: Hemoglobin 6.2 gm/dl (10.1-14.3)
[2018-04-17 07:34] LABS: INR 5.8 (0.87-1.13)
[2018-04-17 07:53] LABS: Hematocrit 18.7 % (30.3-42.9)
[2018-04-17] MEDS ORDERED: NACL 0.9% 500 ML 500 ML IV NR (08:00)
--- NOTE | 2018-04-17 08:41 | Gastroenterology Progress Note ---
Assessment and Plan This is a 78 yo female with pmh of afib on coumadin, DM, HTN, coming from [facility] shelter for several days of rectal bleeding. - Patient Problems (1) GI bleed Current Visit: Yes Status: Acute Plan to address problem: Rectal bleeding: likely lower GI bleed source in the setting of elevated INR at 8.3 on coumadin for afib. - INR at 5 this morning. - continued rectal bleeding. Rec: - fluid resuscitation with IVF bolus - PPI IV bid - additional 2 units of FFP and 1 unit of PRBC. INR goal <1.5. Will give vitamin K. - monitor H/H serially and transfuse with Hgb goal >7. - will need further resuscitation and correction of coagulopathy prior to endoscopy. - keep NPO. - will follow. - attempted to reach family over the phone but both numbers listed not working. Subjective Date of service: 04/17/18 Interval history: Patient have multiple episodes of rectal bleeding overnight. Received 1 unit of PRBC and FFP yesterday. Objective - Constitutional Vitals: Temp Pulse Resp BP Pulse Ox 97.7 F 132 H 17 116/47 100 04/17/18 04:00 04/17/18 08:11 04/17/18 08:11 04/17/18 08:11 04/17/18 08:01 General appearance: no acute distress - EENT Eyes: EOM intact - Respiratory Respiratory effort: normal Respiratory: bilateral: CTA - Cardiovascular Rhythm: irregularly irregular - Gastrointestinal General gastrointestinal: Present: soft, non-tender, non-distended - Integumentary Integumentary: Present: warm, dry - Neurologic Neurological: disoriented - Labs CBC & Chem 7: 04/17/18 06:48 04/16/18 10:15 Labs: Laboratory Results - last 24 hr 04/16/18 04/16/18 04/16/18 10:15 10:15 10:15 WBC 7.1 RBC 3.55 L Hgb 9.9 L Hct 30.4 MCV 86 MCH 28 MCHC 33 RDW 15.3 H Plt Count 335 Lymph % (Auto) 20.1 [place] % (Auto) 5.9 Eos % (Auto) 3.1 Baso % (Auto) 0.6 Lymph # 1.4 [place] # 0.4 Eos # 0.2 Baso # 0.0 Seg Neutrophils % 70.3 H Seg Neutrophils # 5.0 PT 75.7 H INR 8.33 H* APTT 107.1 H* Sodium 138 Potassium 4.1 Chloride 100.2 Carbon Dioxide 22 Anion Gap 20 BUN 29 H Creatinine 1.2 Estimated GFR 43 BUN/Creatinine Ratio 24 Glucose 152 H POC Glucose Calcium 8.6 Total Bilirubin 0.70 AST 18 ALT 8 Alkaline Phosphatase 142 H Total Protein 6.8 Albumin 3.0 L Albumin/Globulin Ratio 0.8 Blood Type Antibody Screen Crossmatch 04/16/18 04/16/18 04/17/18 10:15 18:17 00:52 WBC RBC Hgb 7.7 L 7.7 L Hct 23.8 L D 23.4 L MCV MCH MCHC RDW Plt Count Lymph % (Auto) [place] % (Auto) Eos % (Auto) Baso % (Auto) Lymph # [place] # Eos # Baso # Seg Neutrophils % Seg Neutrophils # PT INR APTT Sodium Potassium Chloride Carbon Dioxide Anion Gap BUN Creatinine Estimated GFR BUN/Creatinine Ratio Glucose POC Glucose Calcium Total Bilirubin AST ALT Alkaline Phosphatase Total Protein Albumin Albumin/Globulin Ratio Blood Type A POSITIVE Antibody Screen Negative Crossmatch See Detail 04/17/18 04/17/18 04/17/18 02:00 02:00 05:29 WBC RBC Hgb 7.8 L Hct 23.7 L MCV MCH MCHC RDW Plt Count Lymph % (Auto) [place] % (Auto) Eos % (Auto) Baso % (Auto) Lymph # [place] # Eos # Baso # Seg Neutrophils % Seg Neutrophils # PT INR APTT Sodium Potassium Chloride Carbon Dioxide Anion Gap BUN Creatinine Estimated GFR BUN/Creatinine Ratio Glucose POC Glucose 161 H 131 H Calcium Total Bilirubin AST ALT Alkaline Phosphatase Total Protein Albumin Albumin/Globulin Ratio Blood Type Antibody Screen Crossmatch 04/17/18 04/17/18 06:48 06:54 WBC RBC Hgb 6.2 L Hct 18.7 L* MCV MCH MCHC RDW Plt Count Lymph % (Auto) [place] % (Auto) Eos % (Auto) Baso % (Auto) Lymph # [place] # Eos # Baso # Seg Neutrophils % Seg Neutrophils # PT 56.3 H INR 5.80 H* APTT Sodium Potassium Chloride Carbon Dioxide Anion Gap BUN Creatinine Estimated GFR BUN/Creatinine Ratio Glucose POC Glucose Calcium Total Bilirubin AST ALT Alkaline Phosphatase Total Protein Albumin Albumin/Globulin Ratio Blood Type Antibody Screen Crossmatch
[2018-04-17] MEDS: PROTONIX IV SCH ×2 (09:35→21:03)
[2018-04-17] MEDS: SODIUM CHLORIDE FLUSH SYRINGE 10 ML IV SCH ×2 (10:00→21:03)
[2018-04-17] MEDS ORDERED: CATAPRES-TTS PATCH TD SCH (10:00)
--- NOTE | 2018-04-17 10:45 | Event Note ---
Date: 04/17/[address] Hanson regarding ongoing rectal bleeding. 78 year old female with Coumadin toxicity for atrial fibrillation with rectal bleeding and declining hemoglobin despite FFP. Given severe elevation in INR and ongoing GI bleeding, recommend Kcentra (PCC) for coagulopathy. If bleeding persists despite correction of coagulopathy, then embolization can be considered. Embolization without correction of underlying coagulopathy will not be effective and will place patient at high risk for access site complication.
[2018-04-17] MEDS ORDERED: KCENTRA IV ONE (11:30)
[2018-04-17] MEDS ORDERED: VITAMIN K (ADULT ONLY) 10 MG in NACL 0.9% 50 ML IV ONE (11:30)
[2018-04-17] MEDS ORDERED: VIAFLEX EMPTY CONTAINER IV ONE (11:30)
--- NOTE | 2018-04-17 12:53 | Progress Note ---
Assessment and Plan Assessment and plan: -- rectal bleeding; no new episodes Nothing by mouth status, GI evaluated the patient, possible colonoscopy --Acute blood loss anemia; transfuse 1 unit of PRBC Closely monitor --Coagulopathy; secondary to Coumadin toxicity; Patient received vitamin K receiving FFP's, closely monitor INR Target 2-3 --History of A. fib; RVR Continue amiodarone and beta blockers --Chronic anticoagulation with Coumadin; patient has significant bleeding Supratherapeutic INR, hold Coumadin --Type 2 diabetes mellitus; Accu-Chek sliding scale coverage and ADA diet and insulin --Hypertension; moderate control Continue current antihypertensives and when necessary medications --DVT prophylaxis; SCDs --Full code Plan of care discussed with GI doctor within Consult cardiology as needed Critical care time 33 minutes Plan of care is reviewed with the patient's nurse and the daughter The high probability of a clinically significant, sudden or life threatening deterioration of the [GI,cardio and hemat] system(s) required my full and direct attention, intervention and personal management.The aggregate critical care time was [33] minutes. This time is in addition to time spent performing reported procedures but includes the following: [x] Data Review and interpretation [x] Patient assessment and monitoring of vital signs [x] Documentation [x] Medication orders and management History Interval history: Patient seen and examined medical records reviewed Admitted with rectal bleeding and severe anemia Coagulopathy secondary to Coumadin toxicity Patient sick looking minimally communicative Vital signs noted Patient has intermittent rapid ventricular rate Hospitalist Physical - Constitutional Vitals: Temp Pulse Resp BP Pulse Ox 97.8 F 140 H 16 108/48 100 04/17/18 10:57 04/17/18 10:57 04/17/18 10:57 04/17/18 10:57 04/17/18 10:57 General appearance: Present: no acute distress, well-nourished - EENT Eyes: Present: PERRL, EOM intact - Neck Neck: Present: supple, normal ROM - Respiratory Respiratory effort: normal Respiratory: bilateral: diminished, negative: rales, rhonchi, wheezing - Cardiovascular Rhythm: regular Heart Sounds: Present: S1 & S2 - Extremities Extremities: no ischemia, No edema - Abdominal General gastrointestinal: soft, non-tender, non-distended, normal bowel sounds - Integumentary Integumentary: Present: clear, warm - Psychiatric Psychiatric: appropriate mood/affect, cooperative - Neurologic Neurologic: CNII-XII intact, moves all extremities Results - Labs CBC & Chem 7: 04/17/18 06:48 04/16/18 10:15 Labs: Laboratory Last Values WBC 7.1 K/mm3 (4.5-11.0) 04/16/18 10:15 RBC 3.55 M/mm3 (3.65-5.03) L 04/16/18 10:15 Hgb 6.2 gm/dl (10.1-14.3) L 04/17/18 06:48 Hct 18.7 % (30.3-42.9) L* 04/17/18 06:48 MCV 86 fl (79-97) 04/16/18 10:15 MCH 28 pg (28-32) 04/16/18 10:15 MCHC 33 % (30-34) 04/16/18 10:15 RDW 15.3 % (13.2-15.2) H 04/16/18 10:15 Plt Count 335 K/mm3 (140-440) 04/16/18 10:15 Lymph % (Auto) 20.1 % (13.4-35.0) 04/16/18 10:15 [place] % (Auto) 5.9 % (0.0-7.3) 04/16/18 10:15 Eos % (Auto) 3.1 % (0.0-4.3) 04/16/18 10:15 Baso % (Auto) 0.6 % (0.0-1.8) 04/16/18 10:15 Lymph # 1.4 K/mm3 (1.2-5.4) 04/16/18 10:15 [place] # 0.4 K/mm3 (0.0-0.8) 04/16/18 10:15 Eos # 0.2 K/mm3 (0.0-0.4) 04/16/18 10:15 Baso # 0.0 K/mm3 (0.0-0.1) 04/16/18 10:15 Seg Neutrophils % 70.3 % (40.0-70.0) H 04/16/18 10:15 Seg Neutrophils # 5.0 K/mm3 (1.8-7.7) 04/16/18 10:15 PT 56.3 Sec. (12.2-14.9) H 04/17/18 06:54 INR 5.80 (0.87-1.13) H* 04/17/18 06:54 APTT 107.1 Sec. (24.2-36.6) H* 04/16/18 10:15 Sodium 138 mmol/L (137-145) 04/16/18 10:15 Potassium 4.1 mmol/L (3.6-5.0) 04/16/18 10:15 Chloride 100.2 mmol/L (98-107) 04/16/18 10:15 Carbon Dioxide 22 mmol/L (22-30) 04/16/18 10:15 Anion Gap 20 mmol/L 04/16/18 10:15 BUN 29 mg/dL (7-17) H 04/16/18 10:15 Creatinine 1.2 mg/dL (0.7-1.2) 04/16/18 10:15 Estimated GFR 43 ml/min 04/16/18 10:15 BUN/Creatinine Ratio 24 % 04/16/18 10:15 Glucose 152 mg/dL (65-100) H 04/16/18 10:15 POC Glucose 131 (70-105) H 04/17/18 05:29 Calcium 8.6 mg/dL (8.4-10.2) 04/16/18 10:15 Total Bilirubin 0.70 mg/dL (0.1-1.2) 04/16/18 10:15 AST 18 units/L (5-40) 04/16/18 10:15 ALT 8 units/L (7-56) 04/16/18 10:15 Alkaline Phosphatase 142 units/L (35-129) H 04/16/18 10:15 Total Protein 6.8 g/dL (6.3-8.2) 04/16/18 10:15 Albumin 3.0 g/dL (3.9-5) L 04/16/18 10:15 Albumin/Globulin Ratio 0.8 % 04/16/18 10:15 Blood Type A POSITIVE 04/16/18 10:15 Antibody Screen Negative 04/16/18 10:15 Crossmatch See Detail 04/16/18 10:15
[2018-04-17] MEDS ORDERED: NACL 0.9% 200 ML ONE (13:04)
--- NOTE | 2018-04-17 13:48 | Cat Scan Report ---
CT ABDOMEN PELVIS WITH CONTRAST: HISTORY: GI bleed. COMPARISON: CT abdomen pelvis without contrast dated 10/21/16. TECHNIQUE: Helical CT in 1.25mm intervals following IV contrast. Sagittal and coronal reconstructions. FINDINGS: Lung bases: A small hiatal hernia is identified. Heart size is normal. The visualized lung bases are adequately aerated. Liver: Normal. Biliary system: Normal. Pancreas: Normal. Spleen: Normal. Kidneys/ureters/bladder: The left kidney is atrophic with diffuse cortical thinning and focal scarring. The right kidney appears normal size. No evidence for renal mass or obstructing calculus. The ureters are normal course and caliber. The bladder is unremarkable. Adrenal glands: Normal. Aorta: Mild diffuse calcifications. No aneurysm, stenosis or dissection. Intestines: Unremarkable. There is no obvious mass or site of GI bleeding. There is moderate stool in the rectal vault. Appendix: Normal. Pelvic viscera: Normal. Ascites: None. Adenopathy: None. Musculoskeletal: Osteopenia and degenerative changes. No fracture or suspicious bony lesion. Previous internal fixation of the left proximal femur is noted. IMPRESSION: No acute process is identified. Small hiatal hernia. Atrophic left kidney. Moderate stool in the rectal vault. No site of GI bleeding is identified on CT with contrast.
[2018-04-17] MEDS: CORDARONE PO SCH (14:11)
[2018-04-17] MEDS: LOPRESSOR PO SCH ×2 (14:11→20:57)
[2018-04-17 14:58] LABS: INR 1.03 (0.87-1.13)
[2018-04-17] MEDS ORDERED: GOLYTELY PO ONE (18:00)
[2018-04-17] MEDS ORDERED: DULCOLAX PO ONE (18:00)
[2018-04-18] MEDS: HumaLOG SUB-Q SCH ×5 (00:57→23:45)
[2018-04-18 01:43] LABS: Basophils % (Auto) 0.3 % (0.0-1.8); Eosinophils # (Auto) 0.1 K/mm3 (0.0-0.4); Eosinophils % (Auto) 1.2 % (0.0-4.3); Lymphocytes # (Auto) 1.7 K/mm3 (1.2-5.4); Lymphocytes % (Auto) 25.9 % (13.4-35.0); Mean Corpuscular HGB Conc 34 % (30-34); Mean Corpuscular Volume 91 fl (79-97); Monocytes # (Auto) 0.5 K/mm3 (0.0-0.8); Platelet Count 157 K/mm3 (140-440); Red Blood Count 1.95 M/mm3 (3.65-5.03); Red Cell Distribution Width 16.1 % (13.2-15.2)
[2018-04-18 01:51] LABS: Hematocrit 17.7 % (30.3-42.9)
[2018-04-18] MEDS ORDERED: NACL 0.9% 500 ML 500 ML IV ONE (02:00)
[2018-04-18 04:22] LABS: Calcium 7.8 mg/dL (8.4-10.2)
[2018-04-18 05:43] LABS: INR 0.98 (0.87-1.13)
--- NOTE | 2018-04-18 08:24 | Consultation ---
History of Present Illness Consult date: 04/18/18 Reason for consult: other (GI bleeding, coumadin toxicity) Past History Past Medical History: atrial fib, diabetes, hypertension Social history: other (from senior care) Medications and Allergies Allergies Allergy/AdvReac Type Severity Reaction Status Date / Time No Known Allergies Allergy Unverified 11/19/12 14:52 Home Medications Medication Instructions Recorded Confirmed Last Taken Type Amiodarone [Cordarone 200 MG TAB] 200 mg PO QDAY tablet 04/03/18 04/17/18 2 Days Ago Rx ~04/15/18 200 Aspirin EC [Aspirin Enteric Coated 81 mg PO QDAY tablet 04/03/18 04/17/18 2 Days Ago Rx TAB] ~04/15/18 HYDROcodone/APAP 7.5-325 [[place] 1 each PO Q6HR PRN #20 tablet 04/03/18 04/17/18 2 Days Ago Rx 7.5-325 mg TAB] ~04/15/18 Haloperidol [Haldol] 2 mg PO Q6H PRN tablet 04/03/18 04/17/18 2 Days Ago Rx ~04/15/18 Insulin Glargine [Lantus VIAL] 30 units SUB-Q QHS units 04/03/18 04/17/18 Unknown Rx Lispro Insulin [Humalog] 0 unit SUB-Q ACHS units 04/03/18 04/17/18 2 Days Ago Rx ~04/15/18 Metoprolol [Lopressor TAB] 50 mg PO TID tablet 04/03/18 04/17/18 2 Days Ago Rx ~04/15/18 Warfarin [Coumadin] 4 mg PO DAILY@1700 tablet 04/03/18 04/17/18 Unknown Rx Active Meds: Active Medications Acetaminophen (Tylenol) 650 mg PO Q4H PRN PRN Reason: Pain MILD(1-3)/Fever >100.5/ROJAS Amiodarone HCl (Cordarone) 200 mg PO QDAY [facility] Last Admin: 04/17/18 14:11 Dose: 200 mg Documented by: Clonidine HCl (Catapres-Tts Patch) 0.2 mg TD Mo [facility] Last Admin: 04/17/18 09:36 Dose: 0.2 mg Documented by: Hydromorphone HCl (Dilaudid) 0.5 mg IV Q3H PRN PRN Reason: Pain , Severe (7-10) Insulin Human Lispro (Humalog) 0 unit SUB-Q Q6HR [facility]; Protocol Last Admin: 04/18/18 06:56 Dose: Not Given Documented by: Lorazepam (Ativan) 0.5 mg IV Q3H PRN PRN Reason: Agitation Last Admin: 04/16/18 20:32 Dose: 0.5 mg Documented by: Metoclopramide HCl (Reglan) 10 mg IV Q6H PRN PRN Reason: Nausea And Vomiting Metoprolol Tartrate (Lopressor) 50 mg PO TID [facility] Last Admin: 04/17/18 20:57 Dose: 50 mg Documented by: Ondansetron HCl (Zofran) 4 mg IV Q8H PRN PRN Reason: Nausea And Vomiting Pantoprazole Sodium (Protonix) 40 mg IV BID [facility] Last Admin: 04/17/18 21:03 Dose: 40 mg Documented by: Sodium Chloride (Sodium Chloride Flush Syringe 10 Ml) 10 ml IV BID [facility] Last Admin: 04/17/18 21:03 Dose: 10 ml Documented by: Sodium Chloride (Sodium Chloride Flush Syringe 10 Ml) 10 ml IV PRN PRN PRN Reason: LINE FLUSH Physical Examination Vital signs: Vital Signs Temp Pulse Resp BP Pulse Ox 97.5 F L 109 H 16 107/55 96 04/16/18 10:00 04/16/18 10:00 04/16/18 10:00 04/16/18 10:00 04/16/18 10:00 Results - Laboratory Findings CBC and BMP: 04/18/18 01:27 04/18/18 03:10 PT/INR, D-dimer PT 13.6 Sec. (12.2-14.9) 04/18/18 04:50 INR 0.98 (0.87-1.13) 04/18/18 04:50 Abnormal lab findings: Abnormal Labs 04/16/18 04/16/18 04/16/18 10:15 10:15 10:15 RBC 3.55 L Hgb 9.9 L Hct RDW 15.3 H [place] % (Auto) Seg Neutrophils % 70.3 H PT 75.7 H INR 8.33 H* APTT 107.1 H* Chloride BUN 29 H Glucose 152 H POC Glucose Hemoglobin A1c Calcium Alkaline Phosphatase 142 H Albumin 3.0 L Crossmatch 04/16/18 04/16/18 04/17/18 10:15 18:17 00:52 RBC Hgb 7.7 L 7.7 L Hct 23.8 L D 23.4 L RDW [place] % (Auto) Seg Neutrophils % PT INR APTT Chloride BUN Glucose POC Glucose Hemoglobin A1c Calcium Alkaline Phosphatase Albumin Crossmatch See Detail 04/17/18 04/17/18 04/17/18 02:00 02:00 05:29 RBC Hgb 7.8 L Hct 23.7 L RDW [place] % (Auto) Seg Neutrophils % PT INR APTT Chloride BUN Glucose POC Glucose 161 H 131 H Hemoglobin A1c Calcium Alkaline Phosphatase Albumin Crossmatch 04/17/18 04/17/18 04/17/18 06:48 06:54 11:27 RBC Hgb 6.2 L Hct 18.7 L* RDW [place] % (Auto) Seg Neutrophils % PT 56.3 H INR 5.80 H* APTT Chloride BUN Glucose POC Glucose 140 H Hemoglobin A1c Calcium Alkaline Phosphatase Albumin Crossmatch 04/17/18 04/17/18 04/18/18 19:10 23:04 01:27 RBC 1.95 L Hgb 6.0 L Hct 17.7 L* RDW 16.1 H [place] % (Auto) 8.0 H Seg Neutrophils % PT INR APTT Chloride BUN Glucose POC Glucose 211 H 150 H Hemoglobin A1c Calcium Alkaline Phosphatase Albumin Crossmatch 04/18/18 04/18/18 04/18/18 03:10 04:50 05:30 RBC Hgb Hct RDW [place] % (Auto) Seg Neutrophils % PT INR APTT Chloride 110.2 H BUN 25 H Glucose 114 H POC Glucose 108 H Hemoglobin A1c 6.5 H Calcium 7.8 L Alkaline Phosphatase Albumin Crossmatch
[2018-04-18] MEDS: PROTONIX IV SCH ×2 (09:49→21:48)
[2018-04-18] MEDS: SODIUM CHLORIDE FLUSH SYRINGE 10 ML IV SCH ×2 (09:49→22:05)
[2018-04-18] MEDS: LOPRESSOR PO SCH ×4 (09:49→21:50)
[2018-04-18] MEDS: CORDARONE PO SCH (09:49)
[2018-04-18 10:04] LABS: Hematocrit 21.1 % (30.3-42.9); Hemoglobin 7.3 gm/dl (10.1-14.3)
--- NOTE | 2018-04-18 14:32 | Consultation ---
History of Present Illness Consult date: 04/18/18 Requesting physician: MARNI OLIVER Reason for consult: other (GI bleed, Anemia) History of present illness: 78 yo presented with episodes of bright red bleeding and maroon bleeding from rectum, noted at her NH. She had generalized weakness and elevated INR, since corrected with FFP. Has received 3 units of PRBCs per RN. No rectal bleeding noted overnight. Hemodynamics have been stable. Daughter states patient has de mentia and has been more confused and "combative" lately, wonders if she could have a UTI. Denies fevers, chills, SOB, chest pain, cough. Active Medications Acetaminophen (Tylenol) 650 mg PO Q4H PRN PRN Reason: Pain MILD(1-3)/Fever >100.5/ROJAS Amiodarone HCl (Cordarone) 200 mg PO QDAY [facility] Last Admin: 04/18/18 09:49 Dose: 200 mg Documented by: Clonidine HCl (Catapres-Tts Patch) 0.2 mg TD Mo [facility] Last Admin: 04/17/18 09:36 Dose: 0.2 mg Documented by: Hydromorphone HCl (Dilaudid) 0.5 mg IV Q3H PRN PRN Reason: Pain , Severe (7-10) Insulin Human Lispro (Humalog) 0 unit SUB-Q Q6HR [facility]; Protocol Last Admin: 04/18/18 12:34 Dose: Not Given Documented by: Lorazepam (Ativan) 0.5 mg IV Q3H PRN PRN Reason: Agitation Last Admin: 04/16/18 20:32 Dose: 0.5 mg Documented by: Metoclopramide HCl (Reglan) 10 mg IV Q6H PRN PRN Reason: Nausea And Vomiting Metoprolol Tartrate (Lopressor) 50 mg PO TID [facility] Last Admin: 04/18/18 09:49 Dose: 50 mg Documented by: Ondansetron HCl (Zofran) 4 mg IV Q8H PRN PRN Reason: Nausea And Vomiting Pantoprazole Sodium (Protonix) 40 mg IV BID [facility] Last Admin: 04/18/18 09:49 Dose: 40 mg Documented by: Sodium Chloride (Sodium Chloride Flush Syringe 10 Ml) 10 ml IV BID [facility] Last Admin: 04/18/18 09:49 Dose: 10 ml Documented by: Sodium Chloride (Sodium Chloride Flush Syringe 10 Ml) 10 ml IV PRN PRN PRN Reason: LINE FLUSH Past History Past Medical History: atrial fib, diabetes, hypertension Social history: full code, other (from retirement). denies: smoking, alcohol abuse, prescription drug abuse, IV drug use Family history: other (No pulm issues reported) Medications and Allergies Allergies Allergy/AdvReac Type Severity Reaction Status Date / Time No Known Allergies Allergy Unverified 11/19/12 14:52 Home Medications Medication Instructions Recorded Confirmed Last Taken Type Amiodarone [Cordarone 200 MG TAB] 200 mg PO QDAY tablet 04/03/18 04/17/18 2 Days Ago Rx ~04/15/18 200 Aspirin EC [Aspirin Enteric Coated 81 mg PO QDAY tablet 04/03/18 04/17/18 2 Days Ago Rx TAB] ~04/15/18 HYDROcodone/APAP 7.5-325 [[place] 1 each PO Q6HR PRN #20 tablet 04/03/18 04/17/18 2 Days Ago Rx 7.5-325 mg TAB] ~04/15/18 Haloperidol [Haldol] 2 mg PO Q6H PRN tablet 04/03/18 04/17/18 2 Days Ago Rx ~04/15/18 Insulin Glargine [Lantus VIAL] 30 units SUB-Q QHS units 04/03/18 04/17/18 Unknown Rx Lispro Insulin [Humalog] 0 unit SUB-Q ACHS units 04/03/18 04/17/18 2 Days Ago Rx ~04/15/18 Metoprolol [Lopressor TAB] 50 mg PO TID tablet 04/03/18 04/17/18 2 Days Ago Rx ~04/15/18 Warfarin [Coumadin] 4 mg PO DAILY@1700 tablet 04/03/18 04/17/18 Unknown Rx Active Meds: Active Medications Acetaminophen (Tylenol) 650 mg PO Q4H PRN PRN Reason: Pain MILD(1-3)/Fever >100.5/ROJAS Amiodarone HCl (Cordarone) 200 mg PO QDAY [facility] Last Admin: 04/18/18 09:49 Dose: 200 mg Documented by: Clonidine HCl (Catapres-Tts Patch) 0.2 mg TD Mo [facility] Last Admin: 04/17/18 09:36 Dose: 0.2 mg Documented by: Hydromorphone HCl (Dilaudid) 0.5 mg IV Q3H PRN PRN Reason: Pain , Severe (7-10) Insulin Human Lispro (Humalog) 0 unit SUB-Q Q6HR [facility]; Protocol Last Admin: 04/18/18 12:34 Dose: Not Given Documented by: Lorazepam (Ativan) 0.5 mg IV Q3H PRN PRN Reason: Agitation Last Admin: 04/16/18 20:32 Dose: 0.5 mg Documented by: Metoclopramide HCl (Reglan) 10 mg IV Q6H PRN PRN Reason: Nausea And Vomiting Metoprolol Tartrate (Lopressor) 50 mg PO TID [facility] Last Admin: 04/18/18 09:49 Dose: 50 mg Documented by: Ondansetron HCl (Zofran) 4 mg IV Q8H PRN PRN Reason: Nausea And Vomiting Pantoprazole Sodium (Protonix) 40 mg IV BID [facility] Last Admin: 04/18/18 09:49 Dose: 40 mg Documented by: Sodium Chloride (Sodium Chloride Flush Syringe 10 Ml) 10 ml IV BID [facility] Last Admin: 04/18/18 09:49 Dose: 10 ml Documented by: Sodium Chloride (Sodium Chloride Flush Syringe 10 Ml) 10 ml IV PRN PRN PRN Reason: LINE FLUSH Review of Systems All systems: negative Physical Examination Vital signs: Vital Signs Temp Pulse Resp BP Pulse Ox 97.5 F L 109 H 16 107/55 96 04/16/18 10:00 04/16/18 10:00 04/16/18 10:00 04/16/18 10:00 04/16/18 10:00 General appearance: no acute distress, alert, other (pale-appearing) Eyes: non-icteric ENT: oropharynx moist Neck: supple Effort: normal Ascultation: Bilateral: clear Cardiovascular: irregular rhythm (no mrg) Gastrointestinal: normoactive bowel sounds, soft, non-tender, non-distended Integumentary: normal (did not examine previous hip surgical site or sacrum/back) Extremities: no cyanosis, no edema, pink and warm non-focal exam, pupils equal and round, CN II-XII normal, other (somnolent) mood appropriate, affect normal Results - Laboratory Findings CBC and BMP: 04/18/18 09:22 04/18/18 03:10 PT/INR, D-dimer PT 13.6 Sec. (12.2-14.9) 04/18/18 04:50 INR 0.98 (0.87-1.13) 04/18/18 04:50 Abnormal lab findings: Abnormal Labs 04/16/18 04/16/18 04/16/18 10:15 10:15 10:15 RBC 3.55 L Hgb 9.9 L Hct RDW 15.3 H [place] % (Auto) Seg Neutrophils % 70.3 H PT 75.7 H INR 8.33 H* APTT 107.1 H* Chloride BUN 29 H Glucose 152 H POC Glucose Hemoglobin A1c Calcium Alkaline Phosphatase 142 H Albumin 3.0 L Crossmatch 04/16/18 04/16/18 04/17/18 10:15 18:17 00:52 RBC Hgb 7.7 L 7.7 L Hct 23.8 L D 23.4 L RDW [place] % (Auto) Seg Neutrophils % PT INR APTT Chloride BUN Glucose POC Glucose Hemoglobin A1c Calcium Alkaline Phosphatase Albumin Crossmatch See Detail 04/17/18 04/17/18 04/17/18 02:00 02:00 05:29 RBC Hgb 7.8 L Hct 23.7 L RDW [place] % (Auto) Seg Neutrophils % PT INR APTT Chloride BUN Glucose POC Glucose 161 H 131 H Hemoglobin A1c Calcium Alkaline Phosphatase Albumin Crossmatch 04/17/18 04/17/18 04/17/18 06:48 06:54 11:27 RBC Hgb 6.2 L Hct 18.7 L* RDW [place] % (Auto) Seg Neutrophils % PT 56.3 H INR 5.80 H* APTT Chloride BUN Glucose POC Glucose 140 H Hemoglobin A1c Calcium Alkaline Phosphatase Albumin Crossmatch 04/17/18 04/17/18 04/18/18 19:10 23:04 01:27 RBC 1.95 L Hgb 6.0 L Hct 17.7 L* RDW 16.1 H [place] % (Auto) 8.0 H Seg Neutrophils % PT INR APTT Chloride BUN Glucose POC Glucose 211 H 150 H Hemoglobin A1c Calcium Alkaline Phosphatase Albumin Crossmatch 04/18/18 04/18/18 04/18/18 03:10 04:50 05:30 RBC Hgb Hct RDW [place] % (Auto) Seg Neutrophils % PT INR APTT Chloride 110.2 H BUN 25 H Glucose 114 H POC Glucose 108 H Hemoglobin A1c 6.5 H Calcium 7.8 L Alkaline Phosphatase Albumin Crossmatch 04/18/18 04/18/18 09:22 12:35 RBC Hgb 7.3 L Hct 21.1 L RDW [place] % (Auto) Seg Neutrophils % PT INR APTT Chloride BUN Glucose POC Glucose 109 H Hemoglobin A1c Calcium Alkaline Phosphatase Albumin Crossmatch Assessment and Plan Imp: 1. LGIB 2. Coumadin toxicity 3. Acute blood loss anemia 4. Afib with RVR 5. Volume depletion, better 6. Dementia Rec: 1. Serial H/H; monitor for signs of ongoing bleeding; cont. PPI; for colonoscopy per GI; holding Coumadin -> if OAC is resumed at some point may do better on Eliquis 2. Monitor hemodynamics 3. SCDs 4. Check UA/Ucx 5. Monitor in ICU today Plan of care reviewed w/ patient/daughter, they understand/agree Thanks for the consult.
--- NOTE | 2018-04-18 14:45 | Event Note ---
Date: 04/18/18 Patient with unsuccessful colon prep overnight (only drank 5 cups) with last BM today with liquid brown stool with maroon blood per nursing. Will reorder colon prep for this afternoon (may place NG tube if needed to get colon prep down) and reschedule colonoscopy for tomorrow. continue to monitor H/H and transfuse as needed.
[2018-04-18] MEDS ORDERED: GOLYTELY PO ONE (14:47)
[2018-04-18 15:40] LABS: Bilirubin,Urine NEG (Negative); Blood,Urine SM (Negative); Color,Urine Yellow (Yellow); WBC,Urine > 182.0 /HPF (0.0-6.0)
[2018-04-18 16:54] LABS: Hematocrit 22.2 % (30.3-42.9); Hemoglobin 7.5 gm/dl (10.1-14.3)
--- NOTE | 2018-04-18 18:06 | Progress Note ---
Assessment and Plan Assessment and plan: --Acute blood loss anemia; s/p1 unit of PRBC transfusion Hb 7.3, closely monitor transfuse additional PRBC as needed --Rectal bleeding; no new episodes NPO status, scheduled for colonoscopy, poor prep --Coagulopathy; secondary to Coumadin toxicity; resolved received vitamin K , FFP's, today INR 0.98 --History of A. fib; RVR Continue amiodarone and beta blockers --Chronic anticoagulation with Coumadin; Coumadin toxicity Resolved, hold Coumadin,Pt may not be a candidate for chronic anticoagulation --Type 2 diabetes mellitus; Accu-Chek sliding scale coverage and ADA diet and insulin --Hypertension; moderate control Continue current antihypertensives and when necessary medications --DVT prophylaxis; SCDs --Full code Plan of care discussed with GI Plan of care is reviewed with the patient's nurse and the daughter Critical care time 31 minutes The high probability of a clinically significant, sudden or life threatening deterioration of the [GI,cardio and hemat] system(s) required my full and direct attention, intervention and personal management.The aggregate critical care time was [31] minutes. This time is in addition to time spent performing reported procedures but includes the following: [x] Data Review and interpretation [x] Patient assessment and monitoring of vital signs [x] Documentation [x] Medication orders and management History Interval history: Patient seen and examined medical records reviewed Patient received total of 3 units of PRBC yesterday Hemoglobin this morning is 7.3, no new episodes of bleeding GI scheduled for colonoscopy today, however poor prep The patient is alert and awake Not in acute distress vital signs reviewed Hospitalist Physical - Constitutional Vitals: Temp Pulse Resp BP Pulse Ox 98.5 F 103 H 18 116/63 90 04/18/18 16:00 04/18/18 17:13 04/18/18 17:01 04/18/18 17:13 04/18/18 17:01 General appearance: Present: no acute distress, well-nourished - EENT Eyes: Present: PERRL, EOM intact - Neck Neck: Present: supple, normal ROM - Respiratory Respiratory effort: normal Respiratory: bilateral: diminished, negative: rales, rhonchi, wheezing - Cardiovascular Rhythm: regular Heart Sounds: Present: S1 & S2 - Extremities Extremities: no ischemia, No edema - Abdominal General gastrointestinal: soft, non-tender, non-distended, normal bowel sounds - Integumentary Integumentary: Present: clear, warm - Psychiatric Psychiatric: appropriate mood/affect, other (confused at times) - Neurologic Neurologic: moves all extremities Results - Labs CBC & Chem 7: 04/18/18 16:37 04/18/18 03:10 Labs: Laboratory Last Values WBC 6.7 K/mm3 (4.5-11.0) 04/18/18 01:27 RBC 1.95 M/mm3 (3.65-5.03) L 04/18/18 01:27 Hgb 7.5 gm/dl (10.1-14.3) L 04/18/18 16:37 Hct 22.2 % (30.3-42.9) L 04/18/18 16:37 MCV 91 fl (79-97) 04/18/18 01:27 MCH 31 pg (28-32) 04/18/18 01:27 MCHC 34 % (30-34) 04/18/18 01:27 RDW 16.1 % (13.2-15.2) H 04/18/18 01:27 Plt Count 157 K/mm3 (140-440) 04/18/18 01:27 Lymph % (Auto) 25.9 % (13.4-35.0) 04/18/18 01:27 Richardson % (Auto) 8.0 % (0.0-7.3) H 04/18/18 01:27 Eos % (Auto) 1.2 % (0.0-4.3) 04/18/18 01:27 Baso % (Auto) 0.3 % (0.0-1.8) 04/18/18 01:27 Lymph # 1.7 K/mm3 (1.2-5.4) 04/18/18 01:27 Richardson # 0.5 K/mm3 (0.0-0.8) 04/18/18 01:27 Eos # 0.1 K/mm3 (0.0-0.4) 04/18/18 01:27 Baso # 0.0 K/mm3 (0.0-0.1) 04/18/18 01:27 Seg Neutrophils % 64.6 % (40.0-70.0) 04/18/18 01:27 Seg Neutrophils # 4.3 K/mm3 (1.8-7.7) 04/18/18 01:27 PT 13.6 Sec. (12.2-14.9) 04/18/18 04:50 INR 0.98 (0.87-1.13) 04/18/18 04:50 APTT 107.1 Sec. (24.2-36.6) H* 04/16/18 10:15 Sodium 145 mmol/L (137-145) D 04/18/18 03:10 Potassium 3.9 mmol/L (3.6-5.0) 04/18/18 03:10 Chloride 110.2 mmol/L (98-107) H 04/18/18 03:10 Carbon Dioxide 23 mmol/L (22-30) 04/18/18 03:10 Anion Gap 16 mmol/L 04/18/18 03:10 BUN 25 mg/dL (7-17) H 04/18/18 03:10 Creatinine 1.2 mg/dL (0.7-1.2) 04/18/18 03:10 Estimated GFR 43 ml/min 04/18/18 03:10 BUN/Creatinine Ratio 21 % 04/18/18 03:10 Glucose 114 mg/dL (65-100) H 04/18/18 03:10 POC Glucose 126 (70-105) H 04/18/18 17:43 Hemoglobin A1c 6.5 % (4-6) H 04/18/18 04:50 Calcium 7.8 mg/dL (8.4-10.2) L 04/18/18 03:10 Total Bilirubin 0.70 mg/dL (0.1-1.2) 04/16/18 10:15 AST 18 units/L (5-40) 04/16/18 10:15 ALT 8 units/L (7-56) 04/16/18 10:15 Alkaline Phosphatase 142 units/L (35-129) H 04/16/18 10:15 Total Protein 6.8 g/dL (6.3-8.2) 04/16/18 10:15 Albumin 3.0 g/dL (3.9-5) L 04/16/18 10:15 Albumin/Globulin Ratio 0.8 % 04/16/18 10:15 Urine Color Yellow (Yellow) 04/18/18 15:08 Urine Turbidity Turbid (Clear) 04/18/18 15:08 Urine pH 5.0 (5.0-7.0) 04/18/18 15:08 Ur Specific [place] 1.017 (1.003-1.030) 04/18/18 15:08 Urine Protein 30 mg/dl mg/dL (Negative) 04/18/18 15:08 Urine Glucose (UA) Neg mg/dL (Negative) 04/18/18 15:08 Urine Ketones Neg mg/dL (Negative) 04/18/18 15:08 Urine Blood Sm (Negative) 04/18/18 15:08 Urine Nitrite Neg (Negative) 04/18/18 15:08 Urine Bilirubin Neg (Negative) 04/18/18 15:08 Urine Urobilinogen 2.0 mg/dL (<2.0) 04/18/18 15:08 Ur Leukocyte Esterase Lg (Negative) 04/18/18 15:08 Urine WBC (Auto) > 182.0 /HPF (0.0-6.0) H 04/18/18 15:08 Urine RBC (Auto) 24.0 /HPF (0.0-6.0) 04/18/18 15:08 U Epithel Cells (Auto) 4.0 /HPF (0-13.0) 04/18/18 15:08 Urine WBC Clumps 3+ /HPF 04/18/18 15:08 Blood Type A POSITIVE 04/16/18 10:15 Antibody Screen Negative 04/16/18 10:15 Crossmatch See Detail 04/16/18 10:15
[2018-04-19] MEDS: HumaLOG SUB-Q SCH ×4 (05:39→22:26)
[2018-04-19 05:53] LABS: Hematocrit 23.1 % (30.3-42.9); Hemoglobin 7.5 gm/dl (10.1-14.3)
[2018-04-19] MEDS: CORDARONE PO SCH (09:11)
[2018-04-19] MEDS: LOPRESSOR PO SCH ×3 (09:11→20:24)
[2018-04-19] MEDS: PROTONIX IV SCH ×2 (09:11→22:22)
--- NOTE | 2018-04-19 10:17 | Progress Note ---
Assessment and Plan Imp: 1. LGIB 2. Coumadin toxicity 3. Acute blood loss anemia 4. Afib with RVR 5. Volume depletion, better 6. Dementia 7. Pyuria Rec: 1. For colonoscopy 2. Coumadin held; consider Eliquis if it is deemed safe by GI to resume OAC 3. SCDs 4. Check Urine culture; consider empiric ABX given dirty UA, defer to primary 5. She has stopped bleeding, INR is fully reversed, she is stable hemodynamically, H/H stable; can go to floor after colonoscopy with remote tele if okay with GI No family present Subjective Date of service: 04/19/18 Principal diagnosis: GI bleed, Afib Interval history: No events. Finished colon prep. Stool is non-bloody per RN. HD stable. Patient is arousable but is a very poor historian presumably due to dementia. Active Medications Acetaminophen (Tylenol) 650 mg PO Q4H PRN PRN Reason: Pain MILD(1-3)/Fever >100.5/ROJAS Amiodarone HCl (Cordarone) 200 mg PO QDAY [facility] Last Admin: 04/19/18 09:11 Dose: 200 mg Documented by: Clonidine HCl (Catapres-Tts Patch) 0.2 mg TD Mo [facility] Last Admin: 04/17/18 09:36 Dose: 0.2 mg Documented by: Hydromorphone HCl (Dilaudid) 0.5 mg IV Q3H PRN PRN Reason: Pain , Severe (7-10) Insulin Human Lispro (Humalog) 0 unit SUB-Q Q6HR [facility]; Protocol Last Admin: 04/19/18 05:39 Dose: Not Given Documented by: Lorazepam (Ativan) 0.5 mg IV Q3H PRN PRN Reason: Agitation Last Admin: 04/16/18 20:32 Dose: 0.5 mg Documented by: Metoclopramide HCl (Reglan) 10 mg IV Q6H PRN PRN Reason: Nausea And Vomiting Metoprolol Tartrate (Lopressor) 50 mg PO TID [facility] Last Admin: 04/19/18 09:11 Dose: 50 mg Documented by: Ondansetron HCl (Zofran) 4 mg IV Q8H PRN PRN Reason: Nausea And Vomiting Pantoprazole Sodium (Protonix) 40 mg IV BID [facility] Last Admin: 04/19/18 09:11 Dose: 40 mg Documented by: Sodium Chloride (Sodium Chloride Flush Syringe 10 Ml) 10 ml IV BID [facility] Last Admin: 04/18/18 22:05 Dose: 10 ml Documented by: Sodium Chloride (Sodium Chloride Flush Syringe 10 Ml) 10 ml IV PRN PRN PRN Reason: LINE FLUSH Objective Vital Signs - 12hr 04/18/18 04/18/18 04/18/18 22:21 22:31 22:41 Temperature Pulse Rate 114 H 91 H 102 H Pulse Rate [ From Monitor] Pulse Rate [ Left Dorsalis Pedis] Pulse Rate [ Right Dorsalis Pedis] Respiratory 15 13 9 L Rate Blood Pressure 114/60 114/60 114/60 O2 Sat by Pulse Oximetry 04/18/18 04/18/18 04/18/18 22:51 23:00 23:11 Temperature Pulse Rate 95 H 105 H 89 Pulse Rate [ From Monitor] Pulse Rate [ Left Dorsalis Pedis] Pulse Rate [ Right Dorsalis Pedis] Respiratory 10 L 14 10 L Rate Blood Pressure 114/60 120/66 120/66 O2 Sat by Pulse Oximetry 04/18/18 04/18/18 04/18/18 23:21 23:31 23:38 Temperature Pulse Rate 95 H 93 H 87 Pulse Rate [ From Monitor] Pulse Rate [ Left Dorsalis Pedis] Pulse Rate [ Right Dorsalis Pedis] Respiratory 8 L 14 11 L Rate Blood Pressure 120/66 120/66 120/66 O2 Sat by Pulse Oximetry 04/18/18 04/18/18 04/19/18 23:41 23:51 00:00 Temperature 98.6 F Pulse Rate 104 H 95 H 100 H Pulse Rate [ 99 H From Monitor] Pulse Rate [ 99 H Left Dorsalis Pedis] Pulse Rate [ 99 H Right Dorsalis Pedis] Respiratory 12 12 14 Rate Blood Pressure 120/66 120/66 122/65 O2 Sat by Pulse 100 Oximetry 04/19/18 04/19/18 04/19/18 00:05 00:11 00:21 Temperature Pulse Rate 86 85 101 H Pulse Rate [ From Monitor] Pulse Rate [ Left Dorsalis Pedis] Pulse Rate [ Right Dorsalis Pedis] Respiratory 14 12 10 L Rate Blood Pressure 122/65 122/65 120/66 O2 Sat by Pulse Oximetry 04/19/18 04/19/18 04/19/18 00:31 00:41 00:51 Temperature Pulse Rate 92 H 86 94 H Pulse Rate [ From Monitor] Pulse Rate [ Left Dorsalis Pedis] Pulse Rate [ Right Dorsalis Pedis] Respiratory 11 L 12 12 Rate Blood Pressure 120/66 120/66 122/65 O2 Sat by Pulse Oximetry 04/19/18 04/19/18 04/19/18 01:01 01:11 01:21 Temperature Pulse Rate 96 H 96 H 98 H Pulse Rate [ From Monitor] Pulse Rate [ Left Dorsalis Pedis] Pulse Rate [ Right Dorsalis Pedis] Respiratory 12 10 L 11 L Rate Blood Pressure 122/65 128/81 122/65 O2 Sat by Pulse Oximetry 04/19/18 04/19/18 04/19/18 01:31 01:41 01:51 Temperature Pulse Rate 87 93 H 94 H Pulse Rate [ From Monitor] Pulse Rate [ Left Dorsalis Pedis] Pulse Rate [ Right Dorsalis Pedis] Respiratory 12 18 12 Rate Blood Pressure 122/65 122/65 128/81 O2 Sat by Pulse Oximetry 04/19/18 04/19/18 04/19/18 02:00 02:11 02:21 Temperature Pulse Rate 87 102 H 94 H Pulse Rate [ From Monitor] Pulse Rate [ Left Dorsalis Pedis] Pulse Rate [ Right Dorsalis Pedis] Respiratory 13 10 L 15 Rate Blood Pressure 132/72 132/72 132/72 O2 Sat by Pulse Oximetry 04/19/18 04/19/18 04/19/18 02:30 02:41 02:51 Temperature Pulse Rate 108 H 92 H 90 Pulse Rate [ From Monitor] Pulse Rate [ Left Dorsalis Pedis] Pulse Rate [ Right Dorsalis Pedis] Respiratory 16 19 20 Rate Blood Pressure 132/72 132/72 132/72 O2 Sat by Pulse Oximetry 04/19/18 04/19/18 04/19/18 03:00 03:11 03:21 Temperature Pulse Rate 95 H 98 H 97 H Pulse Rate [ From Monitor] Pulse Rate [ Left Dorsalis Pedis] Pulse Rate [ Right Dorsalis Pedis] Respiratory 14 16 19 Rate Blood Pressure 119/79 119/79 119/79 O2 Sat by Pulse Oximetry 04/19/18 04/19/18 04/19/18 03:31 03:36 03:41 Temperature Pulse Rate 89 97 H Pulse Rate [ 86 From Monitor] Pulse Rate [ 86 Left Dorsalis Pedis] Pulse Rate [ 86 Right Dorsalis Pedis] Respiratory 17 19 20 Rate Blood Pressure 119/79 119/79 O2 Sat by Pulse 100 Oximetry 04/19/18 04/19/18 04/19/18 03:51 04:00 04:11 Temperature 98.7 F Pulse Rate 101 H 107 H 101 H Pulse Rate [ From Monitor] Pulse Rate [ Left Dorsalis Pedis] Pulse Rate [ Right Dorsalis Pedis] Respiratory 19 18 17 Rate Blood Pressure 119/79 128/75 128/75 O2 Sat by Pulse Oximetry 04/19/18 04/19/18 04/19/18 04:21 04:31 04:41 Temperature Pulse Rate 91 H 110 H 95 H Pulse Rate [ From Monitor] Pulse Rate [ Left Dorsalis Pedis] Pulse Rate [ Right Dorsalis Pedis] Respiratory 18 17 18 Rate Blood Pressure 128/75 128/75 128/75 O2 Sat by Pulse Oximetry 04/19/18 04/19/18 04/19/18 04:51 05:01 05:11 Temperature Pulse Rate 96 H 121 H 115 H Pulse Rate [ From Monitor] Pulse Rate [ Left Dorsalis Pedis] Pulse Rate [ Right Dorsalis Pedis] Respiratory 14 17 19 Rate Blood Pressure 128/75 119/74 119/74 O2 Sat by Pulse Oximetry 04/19/18 04/19/18 04/19/18 05:21 05:31 05:41 Temperature Pulse Rate 98 H 89 103 H Pulse Rate [ From Monitor] Pulse Rate [ Left Dorsalis Pedis] Pulse Rate [ Right Dorsalis Pedis] Respiratory 13 13 18 Rate Blood Pressure 119/74 119/74 119/74 O2 Sat by Pulse Oximetry 04/19/18 04/19/18 04/19/18 05:51 06:00 06:11 Temperature Pulse Rate 94 H 101 H 93 H Pulse Rate [ From Monitor] Pulse Rate [ Left Dorsalis Pedis] Pulse Rate [ Right Dorsalis Pedis] Respiratory 18 17 18 Rate Blood Pressure 119/74 128/65 128/65 O2 Sat by Pulse Oximetry 04/19/18 04/19/18 04/19/18 06:21 08:00 09:11 Temperature Pulse Rate 101 H 109 H Pulse Rate [ 105 H From Monitor] Pulse Rate [ Left Dorsalis Pedis] Pulse Rate [ Right Dorsalis Pedis] Respiratory 18 13 Rate Blood Pressure 128/65 134/77 O2 Sat by Pulse 100 Oximetry Constitutional: no acute distress, alert, other (pale-appearing) Eyes: non-icteric ENT: oropharynx moist Neck: supple Effort: normal Ascultation: Bilateral: clear Cardiovascular: irregular rhythm (no mrg) Gastrointestinal: normoactive bowel sounds, soft, non-tender, non-distended Integumentary: normal (did not examine previous hip surgical site or sacrum/back) Extremities: no cyanosis, no edema, pink and warm Neurologic: non-focal exam, pupils equal and round, CN II-XII normal, other (somnolent) Psychiatric: mood appropriate, affect normal CBC and BMP: 04/19/18 04:49 04/18/18 03:10 ABG, PT/INR, D-dimer: PT/INR, D-dimer PT 13.6 Sec. (12.2-14.9) 04/18/18 04:50 INR 0.98 (0.87-1.13) 04/18/18 04:50 Abnormal lab findings: Abnormal Labs 04/16/18 04/16/18 04/16/18 10:15 10:15 10:15 RBC 3.55 L Hgb 9.9 L Hct RDW 15.3 H Cris[place] % (Auto) Seg Neutrophils % 70.3 H PT 75.7 H INR 8.33 H* APTT 107.1 H* Chloride BUN 29 H Glucose 152 H POC Glucose Hemoglobin A1c Calcium Alkaline Phosphatase 142 H Albumin 3.0 L Urine WBC (Auto) Crossmatch 04/16/18 04/16/18 04/17/18 10:15 18:17 00:52 RBC Hgb 7.7 L 7.7 L Hct 23.8 L D 23.4 L RDW [place] % (Auto) Seg Neutrophils % PT INR APTT Chloride BUN Glucose POC Glucose Hemoglobin A1c Calcium Alkaline Phosphatase Albumin Urine WBC (Auto) Crossmatch See Detail 04/17/18 04/17/18 04/17/18 02:00 02:00 05:29 RBC Hgb 7.8 L Hct 23.7 L RDW [place] % (Auto) Seg Neutrophils % PT INR APTT Chloride BUN Glucose POC Glucose 161 H 131 H Hemoglobin A1c Calcium Alkaline Phosphatase Albumin Urine WBC (Auto) Crossmatch 04/17/18 04/17/18 04/17/18 06:48 06:54 11:27 RBC Hgb 6.2 L Hct 18.7 L* RDW [place] % (Auto) Seg Neutrophils % PT 56.3 H INR 5.80 H* APTT Chloride BUN Glucose POC Glucose 140 H Hemoglobin A1c Calcium Alkaline Phosphatase Albumin Urine WBC (Auto) Crossmatch 04/17/18 04/17/18 04/18/18 19:10 23:04 01:27 RBC 1.95 L Hgb 6.0 L Hct 17.7 L* RDW 16.1 H Crisp % (Auto) 8.0 H Seg Neutrophils % PT INR APTT Chloride BUN Glucose POC Glucose 211 H 150 H Hemoglobin A1c Calcium Alkaline Phosphatase Albumin Urine WBC (Auto) Crossmatch 04/18/18 04/18/18 04/18/18 03:10 04:50 05:30 RBC Hgb Hct RDW [place] % (Auto) Seg Neutrophils % PT INR APTT Chloride 110.2 H BUN 25 H Glucose 114 H POC Glucose 108 H Hemoglobin A1c 6.5 H Calcium 7.8 L Alkaline Phosphatase Albumin Urine WBC (Auto) Crossmatch 04/18/18 04/18/18 04/18/18 09:22 12:35 15:08 RBC Hgb 7.3 L Hct 21.1 L RDW [place] % (Auto) Seg Neutrophils % PT INR APTT Chloride BUN Glucose POC Glucose 109 H Hemoglobin A1c Calcium Alkaline Phosphatase Albumin Urine WBC (Auto) > 182.0 H Crossmatch 04/18/18 04/18/18 04/18/18 16:37 17:43 23:34 RBC Hgb 7.5 L Hct 22.2 L RDW Crisp % (Auto) Seg Neutrophils % PT INR APTT Chloride BUN Glucose POC Glucose 126 H 160 H Hemoglobin A1c Calcium Alkaline Phosphatase Albumin Urine WBC (Auto) Crossmatch 04/19/18 04/19/18 04:49 05:14 RBC Hgb 7.5 L Hct 23.1 L RDW Crisp % (Auto) Seg Neutrophils % PT INR APTT Chloride BUN Glucose POC Glucose 149 H Hemoglobin A1c Calcium Alkaline Phosphatase Albumin Urine WBC (Auto) Crossmatch
[2018-04-19] MEDS ORDERED: WATER FOR IRRIG STERILE IR ONE (10:40)
[2018-04-19] MEDS ORDERED: WATER FOR IRRIG STERILE ONE (10:40)
[2018-04-19] MEDS ORDERED: NACL 0.9% 1000 ML 1,000 ML ONE (12:21)
[2018-04-19] MEDS ORDERED: DIPRIVAN 10 MG/ML IV ONE ×2 (12:33)
--- NOTE | 2018-04-19 12:47 | Anesthesia Consultation ---
Anesthesia Consult and Med Hx Date of service: 04/19/18 - Airway Anesthetic Teeth Evaluation: Poor (multiple missing teeth) ROM Head & Neck: Adequate Mental/Hyoid Distance: Adequate Mallampati Class: Class II Intubation Access Assessment: Probably Good - Pre-Operative Health Status ASA Pre-Surgery Classification: ASA3 Proposed Anesthetic Plan: MAC - Pulmonary Hx Smoking: No Hx Asthma: No Hx Respiratory Symptoms: No - Cardiovascular System Hx Hypertension: Yes Hx Heart Attack/AMI: No Hx Percutaneous Transluminal Coronary Angioplasty (PTCA): No Hx Cardia Arrhythmia: Yes (atrial fibrillation) Hx Pacemaker: No Hx Internal Defibrillator: No - Central Nervous System Hx Seizures: No CVA: No Hx Psychiatric Problems: Yes (dementia) - Endocrine Hx Renal Disease: No (stones) Hx Liver Disease: No Hx Insulin Dependent Diabetes: Yes (poorly controlled this admission) Hx Thyroid Disease: No - Other Systems Hx Alcohol Use: No Hx Substance Use: No Hx Cancer: No
--- NOTE | 2018-04-19 12:48 | Anesthesia Day of Surgery ---
Anesthesia Day of Surgery - Day of Surgery Patient Examined: Yes Patient H&P Reviewed: Yes Patient is NPO: Yes
--- NOTE | 2018-04-19 13:15 | Operative Report ---
Operative Report Operative Report: Date of procedure: 04/19/2018 Preprocedure diagnosis: rectal bleeding, hematochezia Post procedure diagnosis: rectal ulcer Procedure: Colonoscopy to the cecum Endoscopist: Ayaan Hanson MD Anesthesia: Monitored anesthesia care per anesthesia department Estimated blood loss: minimal Medications: Monitored anesthesia care. See separate report by anesthesia for details. After careful discussion of the nature and purpose of the procedure as well as details of the technique risks benefits and alternatives the patient gave consent. Please see recent history and physical from the office. The patient was placed in the left lateral decubitus position and medicated per anesthesia. A rectal exam was performed sphincter tone was normal there were no masses palpable. The [employer] 570 scope was passed transanally and advanced under continuous direct vision without difficulty to the cecum. The prep quality was fair. Findings: 1. In the rectum, there were 2-3 healing ulcers without active bleeding noted. They were about 1-1.5 cm in size. 2. Nonbleeding internal and external hemorrhoids noted. 3. Otherwise, rest of the colon appeared normal. The procedure was well-tolerated overall and the patient was observed in recovery in ICU. Conclusions: 1. In the rectum, there were 2-3 healing ulcers without active bleeding noted. They were about 1-1.5 cm in size. These are likely the source of her bleeding and likely stercolal ulcer due to constipation and fecal impaction. 2. Nonbleeding internal and external hemorrhoids noted. 3. Otherwise, rest of the colon appeared normal. Plan: 1. Monitor H/H. 2. Can resume anticoagulation in tomorrow if indicated. Will defer to primary team and cardiology for determination. Patient had coumadin toxicity with INR of 8 on admission. 3. Recommend bowel regimen with miralax. 4. Will need to follow up in outpatient GI clinic. May need repeat exam with flex sig.
[2018-04-19] MEDS: SODIUM CHLORIDE FLUSH SYRINGE 10 ML IV SCH ×2 (14:15→22:26)
--- NOTE | 2018-04-19 16:45 | Progress Note ---
Assessment and Plan Assessment and plan: --Rectal bleeding; no new episodes; S/P colonoscopy: Findings: 1. In the rectum, there were 2-3 healing ulcers without active bleeding, about 1-1.5 cm in size. 2. Nonbleeding internal and external hemorrhoids noted. 3. Otherwise, rest of the colon appeared normal. --Acute blood loss anemia; s/p1 unit of PRBC transfusion Hb 7.3, closely monitor transfuse additional PRBC as needed --Coagulopathy; secondary to Coumadin toxicity; resolved received vitamin K , FFP's, today INR 0.98 --History of A. fib; RVR Continue amiodarone and beta blockers --Chronic anticoagulation with Coumadin; Coumadin toxicity Resolved, hold Coumadin,Pt may not be a candidate for chronic anticoagulation Defer the decision of anticoagulation in the setting of coagulopathy and GI b leeding to cardiology --Type 2 diabetes mellitus; Accu-Chek sliding scale coverage and ADA diet and insulin --Hypertension; moderate control Continue current antihypertensives and when necessary medications --DVT prophylaxis; SCDs --Full code Patient is stable to be transferred out of ICU of the [GI,cardio and hemat] system(s) required my full and direct attention, intervention and personal management.The aggregate critical care time was [32] minutes. This time is in addition to time spent performing reported procedures but includes the following: [x] Data Review and interpretation [x] Patient assessment and monitoring of vital signs [x] Documentation [x] Medication orders and management History Interval history: Patient Seen and examined medical records reviewed patient had a colonoscopy at bedside in ICU With a nonhealing ulcers in the rectum Patient feels better no new complaints, not in distress Vital signs reviewed Hospitalist Physical - Constitutional Vitals: Temp Pulse Resp BP Pulse Ox 98.6 F 106 H 13 132/73 100 04/19/18 13:12 04/19/18 15:45 04/19/18 15:45 04/19/18 15:45 04/19/18 15:45 General appearance: Present: no acute distress, well-nourished - EENT Eyes: Present: PERRL, EOM intact - Neck Neck: Present: supple, normal ROM - Respiratory Respiratory effort: normal Respiratory: bilateral: diminished, negative: rales, rhonchi, wheezing - Cardiovascular Rhythm: regular Heart Sounds: Present: S1 & S2 - Extremities Extremities: no ischemia, No edema - Abdominal General gastrointestinal: soft, non-tender, non-distended, normal bowel sounds - Integumentary Integumentary: Present: clear, warm - Psychiatric Psychiatric: appropriate mood/affect, cooperative - Neurologic Neurologic: CNII-XII intact, moves all extremities Results - Labs CBC & Chem 7: 04/19/18 04:49 04/18/18 03:10 Labs: Laboratory Last Values WBC 6.7 K/mm3 (4.5-11.0) 04/18/18 01:27 RBC 1.95 M/mm3 (3.65-5.03) L 04/18/18 01:27 Hgb 7.5 gm/dl (10.1-14.3) L 04/19/18 04:49 Hct 23.1 % (30.3-42.9) L 04/19/18 04:49 MCV 91 fl (79-97) 04/18/18 01:27 MCH 31 pg (28-32) 04/18/18 01:27 MCHC 34 % (30-34) 04/18/18 01:27 RDW 16.1 % (13.2-15.2) H 04/18/18 01:27 Plt Count 157 K/mm3 (140-440) 04/18/18 01:27 Lymph % (Auto) 25.9 % (13.4-35.0) 04/18/18 01:27 [place] % (Auto) 8.0 % (0.0-7.3) H 04/18/18 01:27 Eos % (Auto) 1.2 % (0.0-4.3) 04/18/18 01:27 Baso % (Auto) 0.3 % (0.0-1.8) 04/18/18 01:27 Lymph # 1.7 K/mm3 (1.2-5.4) 04/18/18 01:27 [place] # 0.5 K/mm3 (0.0-0.8) 04/18/18 01:27 Eos # 0.1 K/mm3 (0.0-0.4) 04/18/18 01:27 Baso # 0.0 K/mm3 (0.0-0.1) 04/18/18 01:27 Seg Neutrophils % 64.6 % (40.0-70.0) 04/18/18 01:27 Seg Neutrophils # 4.3 K/mm3 (1.8-7.7) 04/18/18 01:27 PT 13.6 Sec. (12.2-14.9) 04/18/18 04:50 INR 0.98 (0.87-1.13) 04/18/18 04:50 APTT 107.1 Sec. (24.2-36.6) H* 04/16/18 10:15 Sodium 145 mmol/L (137-145) D 04/18/18 03:10 Potassium 3.9 mmol/L (3.6-5.0) 04/18/18 03:10 Chloride 110.2 mmol/L (98-107) H 04/18/18 03:10 Carbon Dioxide 23 mmol/L (22-30) 04/18/18 03:10 Anion Gap 16 mmol/L 04/18/18 03:10 BUN 25 mg/dL (7-17) H 04/18/18 03:10 Creatinine 1.2 mg/dL (0.7-1.2) 04/18/18 03:10 Estimated GFR 43 ml/min 04/18/18 03:10 BUN/Creatinine Ratio 21 % 04/18/18 03:10 Glucose 114 mg/dL (65-100) H 04/18/18 03:10 POC Glucose 146 (70-105) H 04/19/18 13:51 Hemoglobin A1c 6.5 % (4-6) H 04/18/18 04:50 Calcium 7.8 mg/dL (8.4-10.2) L 04/18/18 03:10 Total Bilirubin 0.70 mg/dL (0.1-1.2) 04/16/18 10:15 AST 18 units/L (5-40) 04/16/18 10:15 ALT 8 units/L (7-56) 04/16/18 10:15 Alkaline Phosphatase 142 units/L (35-129) H 04/16/18 10:15 Total Protein 6.8 g/dL (6.3-8.2) 04/16/18 10:15 Albumin 3.0 g/dL (3.9-5) L 04/16/18 10:15 Albumin/Globulin Ratio 0.8 % 04/16/18 10:15 Urine Color Yellow (Yellow) 04/18/18 15:08 Urine Turbidity Turbid (Clear) 04/18/18 15:08 Urine pH 5.0 (5.0-7.0) 04/18/18 15:08 Ur Specific [place] 1.017 (1.003-1.030) 04/18/18 15:08 Urine Protein 30 mg/dl mg/dL (Negative) 04/18/18 15:08 Urine Glucose (UA) Neg mg/dL (Negative) 04/18/18 15:08 Urine Ketones Neg mg/dL (Negative) 04/18/18 15:08 Urine Blood Sm (Negative) 04/18/18 15:08 Urine Nitrite Neg (Negative) 04/18/18 15:08 Urine Bilirubin Neg (Negative) 04/18/18 15:08 Urine Urobilinogen 2.0 mg/dL (<2.0) 04/18/18 15:08 Ur Leukocyte Esterase Lg (Negative) 04/18/18 15:08 Urine WBC (Auto) > 182.0 /HPF (0.0-6.0) H 04/18/18 15:08 Urine RBC (Auto) 24.0 /HPF (0.0-6.0) 04/18/18 15:08 U Epithel Cells (Auto) 4.0 /HPF (0-13.0) 04/18/18 15:08 Urine WBC Clumps 3+ /HPF 04/18/18 15:08 Blood Type A POSITIVE 04/16/18 10:15 Antibody Screen Negative 04/16/18 10:15 Crossmatch See Detail 04/16/18 10:15
[2018-04-20 06:09] LABS: Hematocrit 24.4 % (30.3-42.9); Hemoglobin 8.2 gm/dl (10.1-14.3); INR 1.11 (0.87-1.13); Mean Corpuscular HGB Conc 34 % (30-34); Mean Corpuscular Volume 91 fl (79-97); Platelet Count 158 K/mm3 (140-440); Red Blood Count 2.67 M/mm3 (3.65-5.03); Red Cell Distribution Width 16.4 % (13.2-15.2)
[2018-04-20 06:37] LABS: BUN/Creatinine Ratio 9; Blood Urea Nitrogen 8 mg/dL (7-17); Hemolysis Index 0
[2018-04-20 07:55] LABS: Anisocytosis 1+; Band Neutrophils # (Manual) 0.3 K/mm3; Basophils % (Manual) 0 % (0.0-1.8); Eosinophils % (Manual) 0 % (0.0-4.3); Total Cells Counted 100
--- NOTE | 2018-04-20 08:17 | Progress Note ---
Assessment and Plan Assessment and plan: --Rectal bleeding; no new episodes; S/P colonoscopy: Findings: 1. In the rectum, there were 2-3 healing ulcers without active bleeding, about 1-1.5 cm in size. 2. Nonbleeding internal and external hemorrhoids noted. 3. Otherwise, rest of the colon appeared normal. --Acute blood loss anemia; s/p1 unit of PRBC transfusion Hb 7.3, closely monitor transfuse additional PRBC as needed --Coagulopathy; secondary to Coumadin toxicity; resolved received vitamin K , FFP's, today INR 0.98 --History of A. fib; RVR Continue amiodarone and beta blockers --Chronic anticoagulation with Coumadin; Coumadin toxicity Resolved, hold Coumadin,Pt may not be a candidate for chronic anticoagulation Defer the decision of anticoagulation in the setting of coagulopathy and GI b leeding to cardiology --Type 2 diabetes mellitus; Accu-Chek sliding scale coverage and ADA diet and insulin --Hypertension; moderate control Continue current antihypertensives and when necessary medications --DVT prophylaxis; SCDs --Full code History Interval history: Patient seen and examined medical records reviewed No new Events reported by the nursing staff No new episodes of bleeding Vital signs noted Hospitalist Physical - Constitutional Vitals: Temp Pulse Resp BP Pulse Ox 98.0 F 92 H 20 148/76 100 04/20/18 07:36 04/20/18 07:36 04/20/18 07:36 04/20/18 07:36 04/20/18 07:36 General appearance: Present: no acute distress, well-nourished - EENT Eyes: Present: PERRL, EOM intact - Neck Neck: Present: supple, normal ROM - Respiratory Respiratory effort: normal Respiratory: bilateral: diminished, negative: rales, rhonchi, wheezing - Cardiovascular Rhythm: regular Heart Sounds: Present: S1 & S2 - Extremities Extremities: no ischemia, No edema - Abdominal General gastrointestinal: soft, non-tender, non-distended, normal bowel sounds - Integumentary Integumentary: Present: clear, warm - Psychiatric Psychiatric: appropriate mood/affect, cooperative - Neurologic Neurologic: CNII-XII intact, moves all extremities Results - Labs CBC & Chem 7: 04/20/18 05:10 04/20/18 05:10 Labs: Laboratory Last Values WBC 4.6 K/mm3 (4.5-11.0) 04/20/18 05:10 RBC 2.67 M/mm3 (3.65-5.03) L 04/20/18 05:10 Hgb 8.2 gm/dl (10.1-14.3) L 04/20/18 05:10 Hct 24.4 % (30.3-42.9) L 04/20/18 05:10 MCV 91 fl (79-97) 04/20/18 05:10 MCH 31 pg (28-32) 04/20/18 05:10 MCHC 34 % (30-34) 04/20/18 05:10 RDW 16.4 % (13.2-15.2) H 04/20/18 05:10 Plt Count 158 K/mm3 (140-440) 04/20/18 05:10 Lymph % (Auto) 25.9 % (13.4-35.0) 04/18/18 01:27 [place] % (Auto) 8.0 % (0.0-7.3) H 04/18/18 01:27 Eos % (Auto) 1.2 % (0.0-4.3) 04/18/18 01:27 Baso % (Auto) 0.3 % (0.0-1.8) 04/18/18 01:27 Lymph # 1.7 K/mm3 (1.2-5.4) 04/18/18 01:27 [place] # 0.5 K/mm3 (0.0-0.8) 04/18/18 01:27 Eos # 0.1 K/mm3 (0.0-0.4) 04/18/18 01:27 Baso # 0.0 K/mm3 (0.0-0.1) 04/18/18 01:27 Add Manual Diff Complete 04/20/18 05:10 Total Counted 100 04/20/18 05:10 Seg Neutrophils % 64.6 % (40.0-70.0) 04/18/18 01:27 Seg Neuts % (Manual) 61.0 % (40.0-70.0) 04/20/18 05:10 Band Neutrophils % 6.0 % 04/20/18 05:10 Lymphocytes % (Manual) 25.0 % (13.4-35.0) 04/20/18 05:10 Reactive Lymphs % (Man) 0 % 04/20/18 05:10 Monocytes % (Manual) 8.0 % (0.0-7.3) H 04/20/18 05:10 Eosinophils % (Manual) 0 % (0.0-4.3) 04/20/18 05:10 Basophils % (Manual) 0 % (0.0-1.8) 04/20/18 05:10 Metamyelocytes % 0 % 04/20/18 05:10 Myelocytes % 0 % 04/20/18 05:10 Promyelocytes % 0 % 04/20/18 05:10 Blast Cells % 0 % 04/20/18 05:10 Nucleated RBC % Not Reportable 04/20/18 05:10 Seg Neutrophils # 4.3 K/mm3 (1.8-7.7) 04/18/18 01:27 Seg Neutrophils # Man 2.8 K/mm3 (1.8-7.7) 04/20/18 05:10 Band Neutrophils # 0.3 K/mm3 04/20/18 05:10 Lymphocytes # (Manual) 1.2 K/mm3 (1.2-5.4) 04/20/18 05:10 Abs React Lymphs (Man) 0.0 K/mm3 04/20/18 05:10 Monocytes # (Manual) 0.4 K/mm3 (0.0-0.8) 04/20/18 05:10 Eosinophils # (Manual) 0.0 K/mm3 (0.0-0.4) 04/20/18 05:10 Basophils # (Manual) 0.0 K/mm3 (0.0-0.1) 04/20/18 05:10 Metamyelocytes # 0.0 K/mm3 04/20/18 05:10 Myelocytes # 0.0 K/mm3 04/20/18 05:10 Promyelocytes # 0.0 K/mm3 04/20/18 05:10 Blast Cells # 0.0 K/mm3 04/20/18 05:10 WBC Morphology Not Reportable 04/20/18 05:10 Hypersegmented Neuts Not Reportable 04/20/18 05:10 Hyposegmented Neuts Not Reportable 04/20/18 05:10 Hypogranular Neuts Not Reportable 04/20/18 05:10 Smudge Cells Not Reportable 04/20/18 05:10 Toxic Granulation Not Reportable 04/20/18 05:10 Toxic Vacuolation Not Reportable 04/20/18 05:10 Dohle Bodies Not Reportable 04/20/18 05:10 Pelger-Huet Anomaly Not Reportable 04/20/18 05:10 Triny Rods Not Reportable 04/20/18 05:10 Platelet Estimate Appears normal 04/20/18 05:10 Clumped Platelets Not Reportable 04/20/18 05:10 Plt Clumps, EDTA Not Reportable 04/20/18 05:10 Large Platelets Not Reportable 04/20/18 05:10 Giant Platelets Not Reportable 04/20/18 05:10 Platelet Satelliting Not Reportable 04/20/18 05:10 Plt Morphology Comment Not Reportable 04/20/18 05:10 RBC Morphology Not Reportable 04/20/18 05:10 Dimorphic RBCs Not Reportable 04/20/18 05:10 Polychromasia Few 04/20/18 05:10 Hypochromasia Not Reportable 04/20/18 05:10 Poikilocytosis Not Reportable 04/20/18 05:10 Anisocytosis 1+ 04/20/18 05:10 Microcytosis Not Reportable 04/20/18 05:10 Macrocytosis Not Reportable 04/20/18 05:10 Spherocytes Not Reportable 04/20/18 05:10 Pappenheimer Bodies Not Reportable 04/20/18 05:10 Sickle Cells Not Reportable 04/20/18 05:10 Target Cells Not Reportable 04/20/18 05:10 Tear Drop Cells Not Reportable 04/20/18 05:10 Ovalocytes Not Reportable 04/20/18 05:10 Helmet Cells Not Reportable 04/20/18 05:10 [place] Bodies Not Reportable 04/20/18 05:10 [place] Rings Not Reportable 04/20/18 05:10 [place] Cells Not Reportable 04/20/18 05:10 Bite Cells Not Reportable 04/20/18 05:10 Crenated Cell Not Reportable 04/20/18 05:10 Elliptocytes Not Reportable 04/20/18 05:10 Acanthocytes (Spur) Not Reportable 04/20/18 05:10 Rouleaux Not Reportable 04/20/18 05:10 Hemoglobin C Crystals Not Reportable 04/20/18 05:10 Schistocytes Not Reportable 04/20/18 05:10 Malaria parasites Not Reportable 04/20/18 05:10 [place] Bodies Not Reportable 04/20/18 05:10 Hem Pathologist Commnt No 04/20/18 05:10 PT 15.0 Sec. (12.2-14.9) H 04/20/18 05:10 INR 1.11 (0.87-1.13) 04/20/18 05:10 APTT 107.1 Sec. (24.2-36.6) H* 04/16/18 10:15 Sodium 143 mmol/L (137-145) 04/20/18 05:10 Potassium 3.7 mmol/L (3.6-5.0) 04/20/18 05:10 Chloride 106.2 mmol/L (98-107) 04/20/18 05:10 Carbon Dioxide 25 mmol/L (22-30) 04/20/18 05:10 Anion Gap 16 mmol/L 04/20/18 05:10 BUN 8 mg/dL (7-17) 04/20/18 05:10 Creatinine 0.9 mg/dL (0.7-1.2) 04/20/18 05:10 Estimated GFR > 60 ml/min 04/20/18 05:10 BUN/Creatinine Ratio 9 % 04/20/18 05:10 Glucose 103 mg/dL (65-100) H 04/20/18 05:10 POC Glucose 206 (70-105) H 04/19/18 21:56 Hemoglobin A1c 6.5 % (4-6) H 04/18/18 04:50 Calcium 8.0 mg/dL (8.4-10.2) L 04/20/18 05:10 Total Bilirubin 0.70 mg/dL (0.1-1.2) 04/16/18 10:15 AST 18 units/L (5-40) 04/16/18 10:15 ALT 8 units/L (7-56) 04/16/18 10:15 Alkaline Phosphatase 142 units/L (35-129) H 04/16/18 10:15 Total Protein 6.8 g/dL (6.3-8.2) 04/16/18 10:15 Albumin 3.0 g/dL (3.9-5) L 04/16/18 10:15 Albumin/Globulin Ratio 0.8 % 04/16/18 10:15 Urine Color Yellow (Yellow) 04/18/18 15:08 Urine Turbidity Turbid (Clear) 04/18/18 15:08 Urine pH 5.0 (5.0-7.0) 04/18/18 15:08 Ur Specific [place] 1.017 (1.003-1.030) 04/18/18 15:08 Urine Protein 30 mg/dl mg/dL (Negative) 04/18/18 15:08 Urine Glucose (UA) Neg mg/dL (Negative) 04/18/18 15:08 Urine Ketones Neg mg/dL (Negative) 04/18/18 15:08 Urine Blood Sm (Negative) 04/18/18 15:08 Urine Nitrite Neg (Negative) 04/18/18 15:08 Urine Bilirubin Neg (Negative) 04/18/18 15:08 Urine Urobilinogen 2.0 mg/dL (<2.0) 04/18/18 15:08 Ur Leukocyte Esterase Lg (Negative) 04/18/18 15:08 Urine WBC (Auto) > 182.0 /HPF (0.0-6.0) H 04/18/18 15:08 Urine RBC (Auto) 24.0 /HPF (0.0-6.0) 04/18/18 15:08 U Epithel Cells (Auto) 4.0 /HPF (0-13.0) 04/18/18 15:08 Urine WBC Clumps 3+ /HPF 04/18/18 15:08 Blood Type A POSITIVE 04/16/18 10:15 Antibody Screen Negative 04/16/18 10:15 Crossmatch See Detail 04/16/18 10:15
[2018-04-20] MEDS: HumaLOG SUB-Q SCH ×4 (08:29→21:44)
[2018-04-20] MEDS: LOPRESSOR PO SCH ×3 (09:00→21:43)
--- NOTE | 2018-04-20 09:57 | Consultation ---
Addendum entered and electronically signed by THANG PERDOMO MD 04/20/18 13:06: 78-year-old [facility] patient with permanent atrial fibrillation, on warfarin therapy. She is admitted with lower GI bleed, severe anemia with hematocrit of 17, associated with a severe coagulopathy. The INR was 8.3 on presentation. The coagulopathy has been reversed, she has received blood transfusions, current hematocrit is 24, and a colonoscopy has been completed that reports colonic ulcers. ECG is atrial fibrillation with a well-controlled ventricular rate. Echoca rdiogram shows normal left ventricular systolic function, ejection fraction 60- 65%, with mild aortic stenosis. Recommendations: We will maintain a conservative cardiac approach, with optimal medical therapy for atrial fibrillation rate control. Continue to hold oral anticoagulation for now. Resumption of anticoagulation in future outpatient will depend on clinical course and further recommendations of gastroenterology. Optimal anticoagulation regimen in the future may be a low dose of a NOAC. Original Note: History of Present Illness Consult date: 04/20/18 Consult reason: atrial fibrillation, other (Warfarin toxicity) History of present illness: Patient is a 78 year old woman with Dementia who resides in a snf. She has a history of hypertension, diabetes and persistent atrial fibrillation treated with warfarin for oral anticoagulation therapy. She had an echocardiogram done a month ago that reports a well preserved ejection fraction 60-65%. She was sent admitted to this hospital 04/16 with GI bleed, Anemia and warfarin toxicity. INR 8.33 on presentation. Vitamin K, FFP and blood transfusion given. She has undergone GI evaluation and workup, found to have hemorrhoids and rectal ulcers without active bleeding. GI has reported the patient can resume anticoagulation given risks and benefits and has deferred to cardiology for determination. Patient is resting in bed comfortably, no cardiac complaints. Her presenting ECG is atrial fibrillation with mild rapid ventricular response. Past History Past Medical History: atrial fib, diabetes, hypertension Social history: full code, other (from [facility]). denies: smoking, alcohol abuse, prescription drug abuse, IV drug use Family history: other (No pulm issues reported) Medications and Allergies Allergies Allergy/AdvReac Type Severity Reaction Status Date / Time No Known Allergies Allergy Unverified 11/19/12 14:52 Home Medications Medication Instructions Recorded Confirmed Last Taken Type Amiodarone [Cordarone 200 MG TAB] 200 mg PO QDAY tablet 04/03/18 04/17/18 2 Days Ago Rx ~04/15/18 200 Aspirin EC [Aspirin Enteric Coated 81 mg PO QDAY tablet 04/03/18 04/17/18 2 Days Ago Rx TAB] ~04/15/18 HYDROcodone/APAP 7.5-325 [[place] 1 each PO Q6HR PRN #20 tablet 04/03/18 04/17/18 2 Days Ago Rx 7.5-325 mg TAB] ~04/15/18 Haloperidol [Haldol] 2 mg PO Q6H PRN tablet 04/03/18 04/17/18 2 Days Ago Rx ~04/15/18 Insulin Glargine [Lantus VIAL] 30 units SUB-Q QHS units 04/03/18 04/17/18 Unknown Rx Lispro Insulin [Humalog] 0 unit SUB-Q ACHS units 04/03/18 04/17/18 2 Days Ago Rx ~04/15/18 Metoprolol [Lopressor TAB] 50 mg PO TID tablet 04/03/18 04/17/18 2 Days Ago Rx ~04/15/18 Warfarin [Coumadin] 4 mg PO DAILY@1700 tablet 04/03/18 04/17/18 Unknown Rx Active Meds: Active Medications Acetaminophen (Tylenol) 650 mg PO Q4H PRN PRN Reason: Pain MILD(1-3)/Fever >100.5/ROJAS Amiodarone HCl (Cordarone) 200 mg PO QDAY [facility] Last Admin: 04/19/18 09:11 Dose: 200 mg Documented by: Clonidine HCl (Catapres-Tts Patch) 0.2 mg TD Mo [facility] Last Admin: 04/17/18 09:36 Dose: 0.2 mg Documented by: Hydromorphone HCl (Dilaudid) 0.5 mg IV Q3H PRN PRN Reason: Pain , Severe (7-10) Insulin Human Lispro (Humalog) 0 unit SUB-Q ACHS [facility]; Protocol Last Admin: 04/20/18 08:29 Dose: Not Given Documented by: Lorazepam (Ativan) 0.5 mg IV Q3H PRN PRN Reason: Agitation Last Admin: 04/16/18 20:32 Dose: 0.5 mg Documented by: Metoclopramide HCl (Reglan) 10 mg IV Q6H PRN PRN Reason: Nausea And Vomiting Metoprolol Tartrate (Lopressor) 50 mg PO TID [facility] Last Admin: 04/19/18 20:24 Dose: 50 mg Documented by: Ondansetron HCl (Zofran) 4 mg IV Q8H PRN PRN Reason: Nausea And Vomiting Pantoprazole Sodium (Protonix) 40 mg IV BID [facility] Stop: 04/20/18 23:59 Last Admin: 04/19/18 22:22 Dose: 40 mg Documented by: Pantoprazole Sodium (Protonix) 40 mg PO BID [facility] Sodium Chloride (Sodium Chloride Flush Syringe 10 Ml) 10 ml IV BID [facility] Last Admin: 04/19/18 22:26 Dose: 10 ml Documented by: Sodium Chloride (Sodium Chloride Flush Syringe 10 Ml) 10 ml IV PRN PRN PRN Reason: LINE FLUSH Physical Examination Vital Signs Temp Pulse Resp BP Pulse Ox 97.5 F L 109 H 16 107/55 96 04/16/18 10:00 04/16/18 10:00 04/16/18 10:00 04/16/18 10:00 04/16/18 10:00 General appearance: no acute distress HEENT: Positive: PERRL Cardiac: Positive: irregularly irregular Lungs: Positive: Decreased Breath Sounds Results 04/20/18 05:10 04/20/18 05:10 Coagulation 04/20/18 Range/Units 05:10 PT 15.0 H (12.2-14.9) Sec. INR 1.11 (0.87-1.13) CBC 04/20/18 Range/Units 05:10 WBC 4.6 (4.5-11.0) K/mm3 RBC 2.67 L (3.65-5.03) M/mm3 Hgb 8.2 L (10.1-14.3) gm/dl Hct 24.4 L (30.3-42.9) % Plt Count 158 (140-440) K/mm3 Comprehensive Metabolic Panel 04/20/18 Range/Units 05:10 Sodium 143 (137-145) mmol/L Potassium 3.7 (3.6-5.0) mmol/L Chloride 106.2 (98-107) mmol/L Carbon Dioxide 25 (22-30) mmol/L BUN 8 (7-17) mg/dL Creatinine 0.9 (0.7-1.2) mg/dL Glucose 103 H (65-100) mg/dL Calcium 8.0 L (8.4-10.2) mg/dL Assessment and Plan GI bleed Persistent atrial fibrillation on amiodarone and metoprolol for rate control previously treated with warfarin for oral anticoagulation therapy Hypertension Diabetes Dementia Echocardiogram done 02/2018 reports mild aortic stenosis, normal LVEF 60-65%.
--- NOTE | 2018-04-20 10:08 | Progress Note ---
Assessment and Plan 78 y/o female with GI bleed Will sign off Call if any further questions. Subjective Date of service: 04/20/18 Principal diagnosis: GI bleed, Afib Interval history: No acute events. Pulm status is stable. Objective - Constitutional Vitals: Vital Signs - 12hr 04/20/18 04/20/18 02:50 07:36 Temperature 98.4 F 98.0 F Pulse Rate 74 92 H Respiratory 18 20 Rate Blood Pressure 144/81 148/76 O2 Sat by Pulse 99 100 Oximetry - Labs CBC & Chem 7: 04/20/18 05:10 04/20/18 05:10 Labs: Abnormal lab results 04/19/18 04/19/18 04/19/18 Range/Units 13:51 17:21 21:56 RBC (3.65-5.03) M/mm3 Hgb (10.1-14.3) gm/dl Hct (30.3-42.9) % RDW (13.2-15.2) % Monocytes % (Manual) (0.0-7.3) % PT (12.2-14.9) Sec. Glucose (65-100) mg/dL POC Glucose 146 H 152 H 206 H (70-105) Calcium (8.4-10.2) mg/dL 04/20/18 04/20/18 04/20/18 Range/Units 05:10 05:10 05:10 RBC 2.67 L (3.65-5.03) M/mm3 Hgb 8.2 L (10.1-14.3) gm/dl Hct 24.4 L (30.3-42.9) % RDW 16.4 H (13.2-15.2) % Monocytes % (Manual) 8.0 H (0.0-7.3) % PT 15.0 H (12.2-14.9) Sec. Glucose 103 H (65-100) mg/dL POC Glucose (70-105) Calcium 8.0 L (8.4-10.2) mg/dL 04/20/18 Range/Units 07:16 RBC (3.65-5.03) M/mm3 Hgb (10.1-14.3) gm/dl Hct (30.3-42.9) % RDW (13.2-15.2) % Monocytes % (Manual) (0.0-7.3) % PT (12.2-14.9) Sec. Glucose (65-100) mg/dL POC Glucose 108 H (70-105) Calcium (8.4-10.2) mg/dL Medications & Allergies - Medications Allergies/Adverse Reactions: Allergies No Known Allergies Allergy (Unverified 11/19/12 14:52) Home Medications: Home Medications Medication Instructions Recorded Confirmed Last Taken Type Amiodarone [Cordarone 200 MG TAB] 200 mg PO QDAY tablet 04/03/18 04/17/18 2 Days Ago Rx ~04/15/18 200 Aspirin EC [Aspirin Enteric Coated 81 mg PO QDAY tablet 04/03/18 04/17/18 2 Days Ago Rx TAB] ~04/15/18 HYDROcodone/APAP 7.5-325 [Malone 1 each PO Q6HR PRN #20 tablet 04/03/18 04/17/18 2 Days Ago Rx 7.5-325 mg TAB] ~04/15/18 Haloperidol [Haldol] 2 mg PO Q6H PRN tablet 04/03/18 04/17/18 2 Days Ago Rx ~04/15/18 Insulin Glargine [Lantus VIAL] 30 units SUB-Q QHS units 04/03/18 04/17/18 Unknown Rx Lispro Insulin [Humalog] 0 unit SUB-Q ACHS units 04/03/18 04/17/18 2 Days Ago Rx ~04/15/18 Metoprolol [Lopressor TAB] 50 mg PO TID tablet 04/03/18 04/17/18 2 Days Ago Rx ~04/15/18 Warfarin [Coumadin] 4 mg PO DAILY@1700 tablet 04/03/18 04/17/18 Unknown Rx Active Medications: Generic Name Dose Route Start Last Admin Trade Name Freq PRN Reason Stop Dose Admin Acetaminophen 650 mg 04/17/18 01:19 Tylenol PO Q4H PRN Pain MILD(1-3)/Fever >100.5/ROJAS Amiodarone HCl 200 mg 04/17/18 13:00 04/19/18 09:11 Cordarone PO 200 mg QDAY HUSAM Administration Clonidine HCl 0.2 mg 04/17/18 10:00 04/17/18 09:36 Catapres-Tts Patch TD 0.2 mg Mo HUASM Administration Hydromorphone HCl 0.5 mg 04/17/18 01:19 Dilaudid IV Q3H PRN Pain , Severe (7-10) Insulin Human Lispro 0 unit 04/19/18 16:30 04/20/18 08:29 Humalog SUB-Q Not Given ACHS [facility] Protocol Lorazepam 0.5 mg 04/16/18 20:14 04/16/18 20:32 Ativan IV 0.5 mg Q3H PRN Administration Agitation Metoclopramide HCl 10 mg 04/17/18 01:19 Reglan IV Q6H PRN Nausea And Vomiting Metoprolol Tartrate 50 mg 04/17/18 14:00 04/19/18 20:24 Lopressor PO 50 mg TID HUSAM Administration Ondansetron HCl 4 mg 04/17/18 01:19 Zofran IV Q8H PRN Nausea And Vomiting Pantoprazole Sodium 40 mg 04/16/18 22:00 04/19/18 22:22 Protonix IV 04/20/18 23:59 40 mg BID HUSAM Administration Pantoprazole Sodium 40 mg 04/21/18 10:00 Protonix PO BID HUSAM Sodium Chloride 10 ml 04/17/18 10:00 04/19/18 22:26 Sodium Chloride Flush Syringe 10 Ml IV 10 ml BID HUSAM Administration Sodium Chloride 10 ml 04/17/18 01:19 Sodium Chloride Flush Syringe 10 Ml IV PRN PRN LINE FLUSH
[2018-04-20] MEDS: CORDARONE PO SCH (10:39)
[2018-04-20] MEDS: SODIUM CHLORIDE FLUSH SYRINGE 10 ML IV SCH ×2 (10:40→21:42)
[2018-04-20] MEDS: PROTONIX IV SCH ×2 (10:40→21:39)
--- NOTE | 2018-04-20 11:19 | Gastroenterology Progress Note ---
Addendum entered and electronically signed by ANASTASIA SERRANO MD 04/20/18 16:11: Patient seen and examined on 04/20/2018. no further bleeding. H/H trending up. patient okay to be d/c per GI standpoint with f/u in clinic in ~2 weeks (may need repeat exam with fles sig as outpatient) will sign off, please call if needed Original Note: Assessment and Plan This is a 78 yo female with pmh of afib on coumadin, DM, HTN, coming from [facility] for several days of rectal bleeding. 1.GI bleed 2.rectal bleeding -H/H 8.2/24.4-trending up -continue to monitor H/H and transfuse as needed -s/p colonoscopy yesterday that revealed 2-3 healing stercolal ulcers in rectum (likely source of bleeding) 2/2 constipation and fecal impaction -clinically, patient is stable this am w/o active signs of bleeding overnight or this am per nursing. -okay to advance diet as tolerated -okay to resume anticoagulation as needed per cardiology recommendations -continue bowel regimen with miralax -continue supportive care -patient okay to be d/c per GI standpoint with f/u in clinic in ~2 weeks (may need repeat exam with fles sig as outpatient) -will sign off, please call if needed Subjective Date of service: 04/20/18 Principal diagnosis: GI bleed Interval history: No acute distress. No active signs of bleeding overnight or this am per nursing. Objective - Constitutional Vitals: Temp Pulse Resp BP Pulse Ox 98.0 F 112 H 20 146/75 100 04/20/18 07:36 04/20/18 09:00 04/20/18 07:36 04/20/18 09:00 04/20/18 07:36 General appearance: no acute distress - Respiratory Respiratory: bilateral: diminished - Cardiovascular Rhythm: other (irregular) - Gastrointestinal General gastrointestinal: Present: soft, non-tender, non-distended, normal bowel sounds - Labs CBC & Chem 7: 04/20/18 05:10 04/20/18 05:10 Labs: Laboratory Results - last 24 hr 04/19/18 04/19/18 04/19/18 13:51 17:21 21:56 WBC RBC Hgb Hct MCV MCH MCHC RDW Plt Count Add Manual Diff Total Counted Seg Neuts % (Manual) Band Neutrophils % Lymphocytes % (Manual) Reactive Lymphs % (Man) Monocytes % (Manual) Eosinophils % (Manual) Basophils % (Manual) Metamyelocytes % Myelocytes % Promyelocytes % Blast Cells % Nucleated RBC % Seg Neutrophils # Man Band Neutrophils # Lymphocytes # (Manual) Abs React Lymphs (Man) Monocytes # (Manual) Eosinophils # (Manual) Basophils # (Manual) Metamyelocytes # Myelocytes # Promyelocytes # Blast Cells # WBC Morphology Hypersegmented Neuts Hyposegmented Neuts Hypogranular Neuts Smudge Cells Toxic Granulation Toxic Vacuolation Dohle Bodies Pelger-Huet Anomaly Triny Rods Platelet Estimate Clumped Platelets Plt Clumps, EDTA Large Platelets Giant Platelets Platelet Satelliting Plt Morphology Comment RBC Morphology Dimorphic RBCs Polychromasia Hypochromasia Poikilocytosis Anisocytosis Microcytosis Macrocytosis Spherocytes Pappenheimer Bodies Sickle Cells Target Cells Tear Drop Cells Ovalocytes Helmet Cells Paz-Matheny Bodies [place] Rings Ironside Cells Bite Cells Crenated Cell Elliptocytes Acanthocytes (Spur) Rouleaux Hemoglobin C Crystals Schistocytes Malaria parasites Tyree Bodies Hem Pathologist Commnt PT INR Sodium Potassium Chloride Carbon Dioxide Anion Gap BUN Creatinine Estimated GFR BUN/Creatinine Ratio Glucose POC Glucose 146 H 152 H 206 H Calcium 04/20/18 04/20/18 04/20/18 05:10 05:10 05:10 WBC 4.6 RBC 2.67 L Hgb 8.2 L Hct 24.4 L MCV 91 MCH 31 MCHC 34 RDW 16.4 H Plt Count 158 Add Manual Diff Complete Total Counted 100 Seg Neuts % (Manual) 61.0 Band Neutrophils % 6.0 Lymphocytes % (Manual) 25.0 Reactive Lymphs % (Man) 0 Monocytes % (Manual) 8.0 H Eosinophils % (Manual) 0 Basophils % (Manual) 0 Metamyelocytes % 0 Myelocytes % 0 Promyelocytes % 0 Blast Cells % 0 Nucleated RBC % Not Reportable Seg Neutrophils # Man 2.8 Band Neutrophils # 0.3 Lymphocytes # (Manual) 1.2 Abs React Lymphs (Man) 0.0 Monocytes # (Manual) 0.4 Eosinophils # (Manual) 0.0 Basophils # (Manual) 0.0 Metamyelocytes # 0.0 Myelocytes # 0.0 Promyelocytes # 0.0 Blast Cells # 0.0 WBC Morphology Not Reportable Hypersegmented Neuts Not Reportable Hyposegmented Neuts Not Reportable Hypogranular Neuts Not Reportable Smudge Cells Not Reportable Toxic Granulation Not Reportable Toxic Vacuolation Not Reportable Dohle Bodies Not Reportable Pelger-Huet Anomaly Not Reportable Triny Rods Not Reportable Platelet Estimate Appears normal Clumped Platelets Not Reportable Plt Clumps, EDTA Not Reportable Large Platelets Not Reportable Giant Platelets Not Reportable Platelet Satelliting Not Reportable Plt Morphology Comment Not Reportable RBC Morphology Not Reportable Dimorphic RBCs Not Reportable Polychromasia Few Hypochromasia Not Reportable Poikilocytosis Not Reportable Anisocytosis 1+ Microcytosis Not Reportable Macrocytosis Not Reportable Spherocytes Not Reportable Pappenheimer Bodies Not Reportable Sickle Cells Not Reportable Target Cells Not Reportable Tear Drop Cells Not Reportable Ovalocytes Not Reportable Helmet Cells Not Reportable Paz-Matheny Bodies Not Reportable [place] Rings Not Reportable Ironside Cells Not Reportable Bite Cells Not Reportable Crenated Cell Not Reportable Elliptocytes Not Reportable Acanthocytes (Spur) Not Reportable Rouleaux Not Reportable Hemoglobin C Crystals Not Reportable Schistocytes Not Reportable Malaria parasites Not Reportable Tyree Bodies Not Reportable Hem Pathologist Commnt No PT 15.0 H INR 1.11 Sodium 143 Potassium 3.7 Chloride 106.2 Carbon Dioxide 25 Anion Gap 16 BUN 8 Creatinine 0.9 Estimated GFR > 60 BUN/Creatinine Ratio 9 Glucose 103 H POC Glucose Calcium 8.0 L 04/20/18 07:16 WBC RBC Hgb Hct MCV MCH MCHC RDW Plt Count Add Manual Diff Total Counted Seg Neuts % (Manual) Band Neutrophils % Lymphocytes % (Manual) Reactive Lymphs % (Man) Monocytes % (Manual) Eosinophils % (Manual) Basophils % (Manual) Metamyelocytes % Myelocytes % Promyelocytes % Blast Cells % Nucleated RBC % Seg Neutrophils # Man Band Neutrophils # Lymphocytes # (Manual) Abs React Lymphs (Man) Monocytes # (Manual) Eosinophils # (Manual) Basophils # (Manual) Metamyelocytes # Myelocytes # Promyelocytes # Blast Cells # WBC Morphology Hypersegmented Neuts Hyposegmented Neuts Hypogranular Neuts Smudge Cells Toxic Granulation Toxic Vacuolation Dohle Bodies Pelger-Huet Anomaly Triny Rods Platelet Estimate Clumped Platelets Plt Clumps, EDTA Large Platelets Giant Platelets Platelet Satelliting Plt Morphology Comment RBC Morphology Dimorphic RBCs Polychromasia Hypochromasia Poikilocytosis Anisocytosis Microcytosis Macrocytosis Spherocytes Pappenheimer Bodies Sickle Cells Target Cells Tear Drop Cells Ovalocytes Helmet Cells Paz-Matheny Bodies [place] Rings Anand Cells Bite Cells Crenated Cell Elliptocytes Acanthocytes (Spur) Rouleaux Hemoglobin C Crystals Schistocytes Malaria parasites Tyree Bodies Hem Pathologist Commnt PT INR Sodium Potassium Chloride Carbon Dioxide Anion Gap BUN Creatinine Estimated GFR BUN/Creatinine Ratio Glucose POC Glucose 108 H Calcium
[2018-04-20] MEDS: MIRALAX 3350 PO SCH (14:03)
[2018-04-20] MEDS: ATIVAN IV PRN (21:38)
[2018-04-21] MEDS: LOPRESSOR PO SCH ×2 (08:54→14:05)
[2018-04-21] MEDS: HumaLOG SUB-Q SCH ×3 (08:55→17:01)
--- NOTE | 2018-04-21 09:52 | Discharge Summary ---
Providers - Providers Date of Admission: 04/16/18 11:40 Date of discharge: 04/21/18 Attending physician: MARNI OLIVER 04/16/18 11:38 Consult to Physician [CONS] Stat Comment: Dr. Hanson notified @ 11:31- [facility] Consulting Provider: ANASTASIA HANSON Physician Instructions: Reason For Exam: GI bleed 04/18/18 08:35 Consult to Physician [CONS] Routine Comment: Consulting Provider: MICH PAUL Physician Instructions: Reason For Exam: icu admission 04/20/18 08:14 Consult to Physician [CONS] Routine Comment: Consulting Provider: THANG PERDOMO Physician Instructions: Reason For Exam: afib/on coumadin/toxicity/GI bleeding /address AC 04/20/18 13:21 Physical Therapy Evaluation and Treat [CONS] Routine Comment: Reason For Exam: Debility Primary care physician: SALVADOR HERRERA Hospitalization Reason for admission: rectal bleeding Condition: Fair Pertinent studies: CT abdomen and pelvis; Colonoscopy; healing ulcers in the rectum without active bleeding and nonbleeding internal excellent hemorrhoids Hospital course: 79-year-old female patient from longterm admitted through emergency room with rectal bleeding, symptomatically managed evaluated by GI and underwent colonoscopy, Findings of which are as mentioned above, symptomatically managed, also evaluated by Interventional radiologist as well as pulmonary critical, Medications optimized, Symptoms significantly improved new episodes of bleeding. Hemoglobin was 6 requiring 3 units of PRBC, significantly improved. 8.2, today patient is comfortable no new complaints Vital signs stable, GI, pulmonary cleared for discharge Patient is hemodynamically and clinically stable at discharge and transfer back to longterm Discharge diagnosis; --Rectal bleeding; no new episodes; S/P colonoscopy: Findings: 1. In the rectum, there were 2-3 healing ulcers without active bleeding, about 1-1.5 cm in size. 2. Nonbleeding internal and external hemorrhoids noted. 3. Otherwise, rest of the colon appeared normal. --Acute blood loss anemia; s/p3 unit of PRBC transfusion today Hb 8.2, closely monitor transfuse additional PRBC as needed --Coagulopathy; secondary to Coumadin toxicity; resolved received vitamin K , FFP's, today INR 0.98 --History of A. fib; RVR Continue amiodarone and beta blockers --Chronic anticoagulation with Coumadin; Coumadin toxicity Resolved, hold Coumadin,Pt may not be a candidate for chronic anticoagulation Defer the decision of anticoagulation in the setting of coagulopathy and GI bleeding to cardiology --Type 2 diabetes mellitus; Accu-Chek sliding scale coverage and ADA diet and insulin --Hypertension; moderate control Continue current antihypertensives and when necessary medications --DVT prophylaxis; SCDs --Full code Disposition: [id number] HOME UNDER HOME [facility] Time spent for discharge: 31 min Core Measure Documentation - Palliative Care Palliative Care/ Comfort Measures: Not Applicable - Core Measures Any of the following diagnoses?: none Exam - Constitutional Vitals: Temp Pulse Resp BP Pulse Ox 97.6 F 108 H 18 155/82 100 04/21/18 07:42 04/21/18 08:54 04/21/18 07:42 04/21/18 08:54 04/21/18 07:42 General appearance: Present: no acute distress, well-nourished - EENT Eyes: Present: PERRL, EOM intact - Neck Neck: Present: supple, normal ROM - Respiratory Respiratory effort: normal Respiratory: bilateral: diminished, negative: rales, rhonchi, wheezing - Cardiovascular Rhythm: regular Heart Sounds: Present: S1 & S2 - Extremities Extremities: no ischemia, No edema - Abdominal General gastrointestinal: Present: soft, non-tender, non-distended, normal bowel sounds - Integumentary Integumentary: Present: clear, warm - Musculoskeletal Musculoskeletal: generalized weakness - Psychiatric Psychiatric: cooperative - Neurologic Neurologic: moves all extremities Plan Activity: advance as tolerated, fall precautions Diet: other (cardiac diet) Special Instructions: physical therapy Additional Instructions: Do not take Coumadin due to recent rectal bleeding. Check with cardiology,. Do not take insulin, her blood sugars are on the lower range. Check with primary care physician before starting insulin. Fall Precautions Follow up with: SALVADOR HERRERA MD [Primary Care Provider] - 3-5 Days THANG PERDOMO MD [Staff Physician] - 7 Days MINANASTASIA MD [Staff Physician] - 7 Days Forms: Accompanied Note Prescriptions: Amiodarone [Cordarone 200 MG TAB] 200 mg PO QDAY #30 tablet Amoxicillin [Trimox CAP] 500 mg PO Q8H #15 capsule Metoprolol [Lopressor TAB] 50 mg PO TID #90 tablet Pantoprazole [Protonix TAB] 40 mg PO BID #30 tablet
[2018-04-21] MEDS ORDERED: PROTONIX PO SCH (10:00)
[2018-04-21] MEDS: SODIUM CHLORIDE FLUSH SYRINGE 10 ML IV SCH (10:04)
[2018-04-21] MEDS: CORDARONE PO SCH (10:04)
[2018-04-21] MEDS: MIRALAX 3350 PO SCH (10:04)
--- NOTE | 2018-04-21 11:44 | Progress Note ---
Assessment and Plan GI bleed -colonoscopy has been completed that reports colonic ulcers. Severe Anemia s/p transfusion of PRBCs Severe coagulopathy INR was 8.3 on presentation. Permanent atrial fibrillation on amiodarone and metoprolol for rate control warfarin held Hypertension Diabetes Dementia Echocardiogram done 02/2018 reports mild aortic stenosis, normal LVEF 60-65%. Recommendations: Continue rate controlling therapy for atrial fibrillation. Continue to hold oral anticoagulation for now. Resumption of anticoagulation in future outpatient setting will depend on clinical course and further recommendations of gastroenterology. Optimal anticoagulation regimen in the future may be a low dose of a NOAC. Conservative cardiac management. Subjective Date of service: 04/21/18 Principal diagnosis: GI bleed Interval history: Patient is sitting up at bedside table. She has no complaints. Objective Vital Signs Temp Pulse Pulse Resp BP Pulse Ox 04/21/18 08:54 108 H 155/82 04/21/18 07:42 97.6 F 116 H 18 138/80 100 04/21/18 01:39 69 96 04/21/18 01:35 97.6 F 20 128/76 04/20/18 22:00 66 20 95 04/20/18 21:43 66 119/66 04/20/18 20:03 98.3 F 18 119/66 04/20/18 20:00 66 95 04/20/18 13:41 116 H 93/51 04/20/18 13:37 98.0 F 114 H 20 93/51 97 - Physical Examination General: No Apparent Distress HEENT: Positive: PERRL Cardiac: Positive: Reg Rate and Rhythm Lungs: Positive: Decreased Breath Sounds
[2018-04-21 14:00] VITALS: BP 107/53
== END 2018-04-21 18:23 | disposition home health service (06) | DRG 394 ==
LOC: ED 09:45 → CC1 11:40 → 2B-ACE 04-19 18:08
PROVIDERS: ADMIT Internal Medicine; ATTEND Internal Medicine
PROC: 30233N1 Transfusion of Nonautologous Red Blood Cells into Peripheral Vein, Percutaneous Approach (ICD-10-PCS; principal; 2018-04-16)
PROC: 0DJD8ZZ Inspection of Lower Intestinal Tract, Via Natural or Artificial Opening Endoscopic (ICD-10-PCS; 2018-04-19)
DX: K62.6 Ulcer of anus and rectum (principal); D62 Acute posthemorrhagic anemia; N39.0 Urinary tract infection, site not specified; D68.9 Coagulation defect, unspecified; I48.91 Unspecified atrial fibrillation; I10 Essential (primary) hypertension; F03.90 Unspecified dementia, unspecified severity, without behavioral disturbance, psychotic disturbance, mood disturbance, and anxiety; Z96.652 Presence of left artificial knee joint; E86.9 Volume depletion, unspecified; I48.2 Chronic atrial fibrillation; K64.4 Residual hemorrhoidal skin tags; K64.8 Other hemorrhoids; E11.9 Type 2 diabetes mellitus without complications; T45.515A Adverse effect of anticoagulants, initial encounter; Z79.01 Long term (current) use of anticoagulants; Y92.098 Other place in other non-institutional residence as the place of occurrence of the external cause; Z87.442 Personal history of urinary calculi; Z79.84 Long term (current) use of oral hypoglycemic drugs
CPT/HCPCS: 36415; 74177; 80048; 80053; 81001; 82962; 83036; 85007; 85014; 85018; 85025; 85610; 85730; 86850; 86900; 86901; 86920; 87086; 87186; 93005; 93010; 96374; 99291; G0378; C9113; J1815; J2060; J2704; J3430; J7030; J7040; J7050; J7195; P9016; P9017; Q9967

== ENCOUNTER 2018-06-13 18:47 | Inpatient (IN) | payer MEDICARE ==
[2018-06-13] MEDS ORDERED: LEVOPHED DRIP 4 MG/NS 250 ML 4 MG/250 ML BAG IV ONE (19:22)
[2018-06-13] MEDS ORDERED: NACL 0.9% 1000 ML 2,000 ML IV ONE (19:29)
[2018-06-13] MEDS ORDERED: NACL 0.9% 1000 ML 1,000 ML IV ONE (19:29)
[2018-06-13] MEDS ORDERED: MAXIPIME/NS 1 GM/100 ML 1 GM/100 ML BAG IV ONE (19:42)
[2018-06-13] MEDS ORDERED: VANCOMYCIN 2,000 MG in NACL 0.9% 500 ML 500 ML IV ONE (19:42)
[2018-06-13] MEDS ORDERED: LEVAQUIN 750MG/150ML 750 MG/150 ML BAG IV ONE (19:42)
--- NOTE | 2018-06-13 19:43 | Emergency Department Report ---
ED General Adult HPI - General Chief complaint: Cardiac Arrest/CPR Stated complaint: CARDIAC ARREST Time Seen by Provider: 06/13/18 19:25 Source: EMS (verbal report received from EMS.ems notes not available at time of chart dictation), RN notes reviewed, old records reviewed Mode of arrival: Stretcher Limitations: Other (patient nonverbal, intubated, receiving chest compressions) - History of Present Illness Initial comments: This is a 78-year-old female. The patient is brought to the hospital by emergency medical services for cardiac arrest. Patient apparently was feeling weak, and family contacted 911. Apparently, the patient arrested with the family, and they reportedly started CPR. EMS intubated the patient in the field, and continue CPR. EMS estimates that patient was pulseless in the field for at least 20-25 minutes. In the emergency room, patient received CPR, high quality chest compressions, ACLS medications and [id number] ventilation through an endotracheal tube. She receives additional chest compressions for approximately 9 minutes. 9 minutes into her ER resuscitation, pulses are obtained. Patient is hypotensive after pulses are obtained. Nursing team is not able to obtain peripheral IV access. video laryngoscopy is performed, and confirms endotracheal tube placement. Post intubation x-ray shows right mainstem intubation with complete atelectatic changes in the left hemithorax. Therefore, the endotracheal tube was retracted appropriately, and repeat x-ray demonstrates resolution of atelectasis, and ap propriate placement of the endotracheal tube. Postresuscitation, patient is found to have a tachycardic very wide complex rhythm, at a rate of 134 bpm. Because patient is hypotensive with a wide-complex tachycardia, with a rate not fast enough to be suggestive of V. tach, and emergency nonsterile right-sided femoral central line is placed by myself using ultrasound guidance with one attempt. 3 A of sodium bicarbonate are then emergently pushed through this IV, central line, and the QRS complex narrows markedly, and EKG which is repeated suggestive sinus tachycardia. Nursing team is unable to obtain peripheral IV access. The patient's EKG is transmitted to our body former on-call, Dr. Lakhani, who evaluated both initial and subsequent EKGs, and agrees that patient's EKG does not merit activation of the catheterization team. He agrees of the EKG is not consistent with an ST elevation myocardial infarction. He agrees to have cardiology follow in consultation for as of now undifferentiated out of hospital cardiac arrest. Case is discussed with critical care physician, Dr. Gary, who agrees with placement into the intensive care unit. Currently, this hospital does not have a postarrest hypothermia protocol, and therefore, the patient will not be started on a postarrest hypothermia protocol. This is discussed with both cardiology, and the critical care physician, who a lso corroborate and agree to this hospital does not have a postarrest hypothermia protocol. Extensive discussion had with patient's family regarding laboratory studies and poor prognosis. Patient has had a few episodes of myoclonic jerks while here in the emergency room, which is suggestive of anoxic brain injury. Patient was covered empirically for sepsis, given lactic acidosis, tachycardia, renal failure, and leukocytosis, although I suspect that most of these are secondary to the patient's underlying arrest. The patient central line should be discontinued within the next 24 hours as it was placed in a nonsterile emergent fashion -: This afternoon Radiation: other Quality: other Consistency: other Improves with: other Worsens with: other Associated Symptoms: other - Related Data Previous Rx's Medication Instructions Recorded Last Taken Type Amiodarone [Cordarone 200 MG TAB] 200 mg PO QDAY #30 tablet 04/21/18 Unknown Rx Amoxicillin [Trimox CAP] 500 mg PO Q8H #15 capsule 04/21/18 Unknown Rx Metoprolol [Lopressor TAB] 50 mg PO TID #90 tablet 04/21/18 Unknown Rx Pantoprazole [Protonix TAB] 40 mg PO BID #30 tablet 04/21/18 Unknown Rx Allergies Allergy/AdvReac Type Severity Reaction Status Date / Time No Known Allergies Allergy Unverified 11/19/12 14:52 ED Review of Systems ROS: Stated complaint: CARDIAC ARREST Other details as noted in HPI Comment: Unobtainable due to pts medical conditions ED Past Medical Hx - Past Medical History Previous Medical History?: Yes Hx Hypertension: Yes Hx Heart Attack/AMI: No Hx Diabetes: Yes Hx Liver Disease: No Hx Renal Disease: No (stones) Hx Arthritis: Yes Hx Seizures: No Hx Kidney Stones: Yes Hx Asthma: No Hx Dementia: Yes - Surgical History Hx Pacemaker: No Hx Internal Defibrillator: No Additional Surgical History: left knee replacement 2009. Lithotripsy in the past - Social History Smoking Status: Unknown if ever smoked - Medications Home Medications: Home Medications Medication Instructions Recorded Confirmed Last Taken Type Amiodarone [Cordarone 200 MG TAB] 200 mg PO QDAY #30 tablet 04/21/18 Unknown Rx Amoxicillin [Trimox CAP] 500 mg PO Q8H #15 capsule 04/21/18 Unknown Rx Metoprolol [Lopressor TAB] 50 mg PO TID #90 tablet 04/21/18 Unknown Rx Pantoprazole [Protonix TAB] 40 mg PO BID #30 tablet 04/21/18 Unknown Rx ED Physical Exam - General Limitations: Altered Mental Status, Other General appearance: obtunded - Head Head exam: Present: atraumatic, normocephalic - Eye Eye exam: Present: normal appearance - ENT ENT exam: Present: normal orophraynx, normal external ear exam, other (endotracheal tube is in place.) - Neck Neck exam: Present: normal inspection. Absent: tenderness, meningismus - Respiratory Respiratory exam: Present: rhonchi - Cardiovascular Cardiovascular Exam: Present: tachycardia, normal heart sounds. Absent: systolic murmur, diastolic murmur - GI/Abdominal GI/Abdominal exam: Present: soft. Absent: distended, tenderness, guarding, rigid, pulsatile mass - Rectal Rectal exam: Present: normal inspection - External exam: Present: normal external exam - Extremities Exam Extremities exam: Present: normal inspection, other (pulses appreciated in the bilateral upper, lower extremities. There is no redness, pus or streaking.) - Back Exam Back exam: Absent: tenderness, paraspinal tenderness - Neurological Exam Neurological exam: Present: altered, other (GCS of 3) - Psychiatric Psychiatric exam: Present: other (patient is nonverbal) - Skin Skin exam: Present: dry ED Course Vital Signs 06/13/18 06/13/18 06/13/18 18:56 19:15 19:20 Pulse Rate 125 H 129 H 132 H Respiratory 12 16 Rate Blood Pressure Blood Pressure 150/76 85/31 108/48 [Right] O2 Sat by Pulse 90 92 Oximetry 06/13/18 06/13/18 06/13/18 19:30 21:32 22:00 Pulse Rate 96 H 103 H 94 H Respiratory 20 25 H 25 H Rate Blood Pressure 157/73 99/51 116/64 Blood Pressure [Right] O2 Sat by Pulse 92 94 92 Oximetry 06/13/18 06/13/18 06/13/18 22:30 23:01 23:30 Pulse Rate 101 H 87 89 Respiratory 25 H 25 H 25 H Rate Blood Pressure 98/58 107/60 98/63 Blood Pressure [Right] O2 Sat by Pulse 92 95 97 Oximetry 06/14/18 00:00 Pulse Rate 90 Respiratory 25 H Rate Blood Pressure 105/57 Blood Pressure [Right] O2 Sat by Pulse 99 Oximetry - Central Line Placement Right Femoral Consent Obtained: emergent situation Time Out Performed: Yes Patient Placed on Monitor/Pulse Ox: Yes MD Prep: mask, gown Central Line Prep: Povidone-Iodine 1% Ultrasound Used for Placement: Yes Central Line Lumen Inserted: triple Bloods Obtained for Lab: No Central Line Position: good blood return, all ports aspirated, flus, sutured in place with 2-0 Dressing Applied: Tegaderm Patient Tolerated Procedure: well Complications: none Additional Comments: Patient was hemodynamically unstable, with a wide complex tachycardia, suggestive of hyperkalemia, or sodium channel toxicity. Nursing team is unable to obtain peripheral IV access, and given that patient is postarrest with tachycardia and hypotension, requires emergent nonsterile placement of a central line. This should be be discontinued by the inpatient team within 24 hours. - EJ/Peripheral Line Neck R Time Out Performed: Yes Indications: nurses unable to establis Skin Cleansed in Sterile Fashion: Yes Size: 18 Dressing Placed: Tegaderm Patient Tolerated Procedure: well - Intubation Time Out Performed: No Assist Device Used: fiberoptic device ET Tube Size: 7.5 Patient Tolerated Procedure: well Intubation Complications: none Additional Comments: Endotracheal tube placement is confirmed with video laryngoscopy, and confirms placement of endotracheal tube between the vocal cords. ED Medical Decision Making - Lab Data Result diagrams: 06/13/18 19:32 06/13/18 22:43 Vital Signs 06/13/18 06/13/18 06/13/18 18:56 19:15 19:20 Pulse Rate 125 H 129 H 132 H Respiratory 12 16 Rate Blood Pressure Blood Pressure 150/76 85/31 108/48 [Right] O2 Sat by Pulse 90 92 Oximetry 06/13/18 06/13/18 06/13/18 19:30 21:32 22:00 Pulse Rate 96 H 103 H 94 H Respiratory 20 25 H 25 H Rate Blood Pressure 157/73 99/51 116/64 Blood Pressure [Right] O2 Sat by Pulse 92 94 92 Oximetry Lab Results 06/13/18 06/13/18 06/13/18 Range/Units 19:01 19:25 19:32 WBC 20.3 H (4.5-11.0) K/mm3 RBC 4.02 (3.65-5.03) M/mm3 Hgb 10.9 (10.1-14.3) gm/dl Hct 33.6 (30.3-42.9) % MCV 84 (79-97) fl MCH 27 L (28-32) pg MCHC 32 (30-34) % RDW 16.0 H (13.2-15.2) % Plt Count 281 (140-440) K/mm3 Add Manual Diff Complete Total Counted 100 Seg Neuts % (Manual) 80.0 H (40.0-70.0) % Band Neutrophils % 0 % Lymphocytes % (Manual) 15.0 (13.4-35.0) % Reactive Lymphs % (Man) 0 % Monocytes % (Manual) 2.0 (0.0-7.3) % Eosinophils % (Manual) 1.0 (0.0-4.3) % Basophils % (Manual) 0 (0.0-1.8) % Metamyelocytes % 0 % Myelocytes % 2.0 % Promyelocytes % 0 % Blast Cells % 0 % Nucleated RBC % Not Reportable Seg Neutrophils # Man 16.2 H (1.8-7.7) K/mm3 Band Neutrophils # 0.0 K/mm3 Lymphocytes # (Manual) 3.0 (1.2-5.4) K/mm3 Abs React Lymphs (Man) 0.0 K/mm3 Monocytes # (Manual) 0.4 (0.0-0.8) K/mm3 Eosinophils # (Manual) 0.2 (0.0-0.4) K/mm3 Basophils # (Manual) 0.0 (0.0-0.1) K/mm3 Metamyelocytes # 0.0 K/mm3 Myelocytes # 0.4 K/mm3 Promyelocytes # 0.0 K/mm3 Blast Cells # 0.0 K/mm3 WBC Morphology Not Reportable Hypersegmented Neuts Not Reportable Hyposegmented Neuts Not Reportable Hypogranular Neuts Not Reportable Smudge Cells Not Reportable Toxic Granulation Not Reportable Toxic Vacuolation Not Reportable Dohle Bodies Not Reportable Pelger-Huet Anomaly Not Reportable Triny Rods Not Reportable Platelet Estimate Appears normal Clumped Platelets Not Reportable Plt Clumps, EDTA Not Reportable Large Platelets Not Reportable Giant Platelets Not Reportable Platelet Satelliting Not Reportable Plt Morphology Comment Not Reportable RBC Morphology Not Reportable Dimorphic RBCs Not Reportable Polychromasia Not Reportable Hypochromasia Not Reportable Poikilocytosis 1+ Anisocytosis 1+ Microcytosis Not Reportable Macrocytosis Not Reportable Spherocytes Not Reportable Pappenheimer Bodies Not Reportable Sickle Cells Not Reportable Target Cells Not Reportable Tear Drop Cells Not Reportable Ovalocytes Not Reportable Helmet Cells Not Reportable Paz-Villarreal Bodies Not Reportable [place] Rings Not Reportable [place] Cells Not Reportable Bite Cells Not Reportable Crenated Cell Not Reportable Elliptocytes Not Reportable Acanthocytes (Spur) Not Reportable Rouleaux Not Reportable Hemoglobin C Crystals Not Reportable Schistocytes Not Reportable Malaria parasites Not Reportable Tyree Bodies Not Reportable Hem Pathologist Commnt No PT 17.1 H (12.2-14.9) Sec. INR 1.31 H (0.87-1.13) APTT 38.3 H (24.2-36.6) Sec. POC ABG pH (7.35-7.45) POC ABG pCO2 (35-45) POC ABG HCO3 (22-26 mml/L) POC ABG Total CO2 (23-27mmol/L) POC ABG O2 Sat POC ABG Base Excess ((-2) - (+3)mmol/L) FiO2 % Sodium (137-145) mmol/L Potassium (3.6-5.0) mmol/L Chloride (98-107) mmol/L Carbon Dioxide (22-30) mmol/L Anion Gap mmol/L BUN (7-17) mg/dL Creatinine (0.7-1.2) mg/dL Estimated GFR ml/min BUN/Creatinine Ratio % Glucose (65-100) mg/dL POC Glucose 328 H (70-105) Lactic Acid (0.7-2.0) mmol/L Calcium (8.4-10.2) mg/dL Magnesium (1.7-2.3) mg/dL Total Bilirubin (0.1-1.2) mg/dL AST (5-40) units/L ALT (7-56) units/L Alkaline Phosphatase (35-129) units/L Total Creatine Kinase (30-135) units/L Troponin T (0.00-0.029) ng/mL Total Protein (6.3-8.2) g/dL Albumin (3.9-5) g/dL Albumin/Globulin Ratio % Triglycerides (2-149) mg/dL Cholesterol (50-199) mg/dL LDL Cholesterol Direct (50-130) mg/dL HDL Cholesterol (40-59) mg/dL Cholesterol/HDL Ratio % Urine Color (Yellow) Urine Turbidity (Clear) Urine pH (5.0-7.0) Ur Specific [place] (1.003-1.030) Urine Protein (Negative) mg/dL Urine Glucose (UA) (Negative) mg/dL Urine Ketones (Negative) mg/dL Urine Blood (Negative) Urine Nitrite (Negative) Urine Bilirubin (Negative) Urine Urobilinogen (<2.0) mg/dL Ur Leukocyte Esterase (Negative) Urine WBC (Auto) (0.0-6.0) /HPF Urine RBC (Auto) (0.0-6.0) /HPF U Epithel Cells (Auto) (0-13.0) /HPF Urine Bacteria (Auto) (Negative) /HPF Salicylates (2.8-20.0) mg/dL Acetaminophen (10.0-30.0) ug/mL Blood Type Antibody Screen 06/13/18 06/13/18 06/13/18 Range/Units 19:32 19:32 19:32 WBC (4.5-11.0) K/mm3 RBC (3.65-5.03) M/mm3 Hgb (10.1-14.3) gm/dl Hct (30.3-42.9) % MCV (79-97) fl MCH (28-32) pg MCHC (30-34) % RDW (13.2-15.2) % Plt Count (140-440) K/mm3 Add Manual Diff Total Counted Seg Neuts % (Manual) (40.0-70.0) % Band Neutrophils % % Lymphocytes % (Manual) (13.4-35.0) % Reactive Lymphs % (Man) % Monocytes % (Manual) (0.0-7.3) % Eosinophils % (Manual) (0.0-4.3) % Basophils % (Manual) (0.0-1.8) % Metamyelocytes % % Myelocytes % % Promyelocytes % % Blast Cells % % Nucleated RBC % Seg Neutrophils # Man (1.8-7.7) K/mm3 Band Neutrophils # K/mm3 Lymphocytes # (Manual) (1.2-5.4) K/mm3 Abs React Lymphs (Man) K/mm3 Monocytes # (Manual) (0.0-0.8) K/mm3 Eosinophils # (Manual) (0.0-0.4) K/mm3 Basophils # (Manual) (0.0-0.1) K/mm3 Metamyelocytes # K/mm3 Myelocytes # K/mm3 Promyelocytes # K/mm3 Blast Cells # K/mm3 WBC Morphology Hypersegmented Neuts Hyposegmented Neuts Hypogranular Neuts Smudge Cells Toxic Granulation Toxic Vacuolation Dohle Bodies Pelger-Huet Anomaly Triny Rods Platelet Estimate Clumped Platelets Plt Clumps, EDTA Large Platelets Giant Platelets Platelet Satelliting Plt Morphology Comment RBC Morphology Dimorphic RBCs Polychromasia Hypochromasia Poikilocytosis Anisocytosis Microcytosis Macrocytosis Spherocytes Pappenheimer Bodies Sickle Cells Target Cells Tear Drop Cells Ovalocytes Helmet Cells Paz-Villarreal Bodies [place] Rings [place] Cells Bite Cells Crenated Cell Elliptocytes Acanthocytes (Spur) Rouleaux Hemoglobin C Crystals Schistocytes Malaria parasites Tyree Bodies Hem Pathologist Commnt PT (12.2-14.9) Sec. INR (0.87-1.13) APTT (24.2-36.6) Sec. POC ABG pH (7.35-7.45) POC ABG pCO2 (35-45) POC ABG HCO3 (22-26 mml/L) POC ABG Total CO2 (23-27mmol/L) POC ABG O2 Sat POC ABG Base Excess ((-2) - (+3)mmol/L) FiO2 % Sodium 139 (137-145) mmol/L Potassium 4.0 (3.6-5.0) mmol/L Chloride 88.3 L (98-107) mmol/L Carbon Dioxide 24 (22-30) mmol/L Anion Gap 31 mmol/L BUN 18 H (7-17) mg/dL Creatinine 2.0 H (0.7-1.2) mg/dL Estimated GFR 24 ml/min BUN/Creatinine Ratio 9 % Glucose 379 H (65-100) mg/dL POC Glucose (70-105) Lactic Acid 11.90 H* (0.7-2.0) mmol/L Calcium 8.4 (8.4-10.2) mg/dL Magnesium 1.80 (1.7-2.3) mg/dL Total Bilirubin 1.00 (0.1-1.2) mg/dL AST 130 H (5-40) units/L ALT 57 H (7-56) units/L Alkaline Phosphatase 123 (35-129) units/L Total Creatine Kinase 184 H (30-135) units/L Troponin T 0.032 H (0.00-0.029) ng/mL Total Protein 6.2 L (6.3-8.2) g/dL Albumin 2.9 L (3.9-5) g/dL Albumin/Globulin Ratio 0.9 % Triglycerides 152 H (2-149) mg/dL Cholesterol 150 (50-199) mg/dL LDL Cholesterol Direct 114 (50-130) mg/dL HDL Cholesterol 27 L (40-59) mg/dL Cholesterol/HDL Ratio 5.55 % Urine Color (Yellow) Urine Turbidity (Clear) Urine pH (5.0-7.0) Ur Specific [place] (1.003-1.030) Urine Protein (Negative) mg/dL Urine Glucose (UA) (Negative) mg/dL Urine Ketones (Negative) mg/dL Urine Blood (Negative) Urine Nitrite (Negative) Urine Bilirubin (Negative) Urine Urobilinogen (<2.0) mg/dL Ur Leukocyte Esterase (Negative) Urine WBC (Auto) (0.0-6.0) /HPF Urine RBC (Auto) (0.0-6.0) /HPF U Epithel Cells (Auto) (0-13.0) /HPF Urine Bacteria (Auto) (Negative) /HPF Salicylates (2.8-20.0) mg/dL Acetaminophen (10.0-30.0) ug/mL Blood Type A POSITIVE Antibody Screen Negative 06/13/18 06/13/18 06/13/18 Range/Units 19:32 19:32 20:14 WBC (4.5-11.0) K/mm3 RBC (3.65-5.03) M/mm3 Hgb (10.1-14.3) gm/dl Hct (30.3-42.9) % MCV (79-97) fl MCH (28-32) pg MCHC (30-34) % RDW (13.2-15.2) % Plt Count (140-440) K/mm3 Add Manual Diff Total Counted Seg Neuts % (Manual) (40.0-70.0) % Band Neutrophils % % Lymphocytes % (Manual) (13.4-35.0) % Reactive Lymphs % (Man) % Monocytes % (Manual) (0.0-7.3) % Eosinophils % (Manual) (0.0-4.3) % Basophils % (Manual) (0.0-1.8) % Metamyelocytes % % Myelocytes % % Promyelocytes % % Blast Cells % % Nucleated RBC % Seg Neutrophils # Man (1.8-7.7) K/mm3 Band Neutrophils # K/mm3 Lymphocytes # (Manual) (1.2-5.4) K/mm3 Abs React Lymphs (Man) K/mm3 Monocytes # (Manual) (0.0-0.8) K/mm3 Eosinophils # (Manual) (0.0-0.4) K/mm3 Basophils # (Manual) (0.0-0.1) K/mm3 Metamyelocytes # K/mm3 Myelocytes # K/mm3 Promyelocytes # K/mm3 Blast Cells # K/mm3 WBC Morphology Hypersegmented Neuts Hyposegmented Neuts Hypogranular Neuts Smudge Cells Toxic Granulation Toxic Vacuolation Dohle Bodies Pelger-Huet Anomaly Triny Rods Platelet Estimate Clumped Platelets Plt Clumps, EDTA Large Platelets Giant Platelets Platelet Satelliting Plt Morphology Comment RBC Morphology Dimorphic RBCs Polychromasia Hypochromasia Poikilocytosis Anisocytosis Microcytosis Macrocytosis Spherocytes Pappenheimer Bodies Sickle Cells Target Cells Tear Drop Cells Ovalocytes Helmet Cells Paz-Villarreal Bodies [place] Rings [place] Cells Bite Cells Crenated Cell Elliptocytes Acanthocytes (Spur) Rouleaux Hemoglobin C Crystals Schistocytes Malaria parasites Tyree Bodies Hem Pathologist Commnt PT (12.2-14.9) Sec. INR (0.87-1.13) APTT (24.2-36.6) Sec. POC ABG pH (7.35-7.45) POC ABG pCO2 (35-45) POC ABG HCO3 (22-26 mml/L) POC ABG Total CO2 (23-27mmol/L) POC ABG O2 Sat POC ABG Base Excess ((-2) - (+3)mmol/L) FiO2 % Sodium (137-145) mmol/L Potassium (3.6-5.0) mmol/L Chloride (98-107) mmol/L Carbon Dioxide (22-30) mmol/L Anion Gap mmol/L BUN (7-17) mg/dL Creatinine (0.7-1.2) mg/dL Estimated GFR ml/min BUN/Creatinine Ratio % Glucose (65-100) mg/dL POC Glucose (70-105) Lactic Acid (0.7-2.0) mmol/L Calcium (8.4-10.2) mg/dL Magnesium (1.7-2.3) mg/dL Total Bilirubin (0.1-1.2) mg/dL AST (5-40) units/L ALT (7-56) units/L Alkaline Phosphatase (35-129) units/L Total Creatine Kinase (30-135) units/L Troponin T (0.00-0.029) ng/mL Total Protein (6.3-8.2) g/dL Albumin (3.9-5) g/dL Albumin/Globulin Ratio % Triglycerides (2-149) mg/dL Cholesterol (50-199) mg/dL LDL Cholesterol Direct (50-130) mg/dL HDL Cholesterol (40-59) mg/dL Cholesterol/HDL Ratio % Urine Color Straw (Yellow) Urine Turbidity Clear (Clear) Urine pH 8.0 H (5.0-7.0) Ur Specific [place] 1.005 (1.003-1.030) Urine Protein 100 mg/dl (Negative) mg/dL Urine Glucose (UA) >=500 (Negative) mg/dL Urine Ketones Tr (Negative) mg/dL Urine Blood Mod (Negative) Urine Nitrite Neg (Negative) Urine Bilirubin Neg (Negative) Urine Urobilinogen < 2.0 (<2.0) mg/dL Ur Leukocyte Esterase Tr (Negative) Urine WBC (Auto) 25.0 H (0.0-6.0) /HPF Urine RBC (Auto) 13.0 (0.0-6.0) /HPF U Epithel Cells (Auto) 1.0 (0-13.0) /HPF Urine Bacteria (Auto) 1+ (Negative) /HPF Salicylates < 0.3 L (2.8-20.0) mg/dL Acetaminophen 7.3 L (10.0-30.0) ug/mL Blood Type Antibody Screen 06/13/18 Range/Units 20:52 WBC (4.5-11.0) K/mm3 RBC (3.65-5.03) M/mm3 Hgb (10.1-14.3) gm/dl Hct (30.3-42.9) % MCV (79-97) fl MCH (28-32) pg MCHC (30-34) % RDW (13.2-15.2) % Plt Count (140-440) K/mm3 Add Manual Diff Total Counted Seg Neuts % (Manual) (40.0-70.0) % Band Neutrophils % % Lymphocytes % (Manual) (13.4-35.0) % Reactive Lymphs % (Man) % Monocytes % (Manual) (0.0-7.3) % Eosinophils % (Manual) (0.0-4.3) % Basophils % (Manual) (0.0-1.8) % Metamyelocytes % % Myelocytes % % Promyelocytes % % Blast Cells % % Nucleated RBC % Seg Neutrophils # Man (1.8-7.7) K/mm3 Band Neutrophils # K/mm3 Lymphocytes # (Manual) (1.2-5.4) K/mm3 Abs React Lymphs (Man) K/mm3 Monocytes # (Manual) (0.0-0.8) K/mm3 Eosinophils # (Manual) (0.0-0.4) K/mm3 Basophils # (Manual) (0.0-0.1) K/mm3 Metamyelocytes # K/mm3 Myelocytes # K/mm3 Promyelocytes # K/mm3 Blast Cells # K/mm3 WBC Morphology Hypersegmented Neuts Hyposegmented Neuts Hypogranular Neuts Smudge Cells Toxic Granulation Toxic Vacuolation Dohle Bodies Pelger-Huet Anomaly Triny Rods Platelet Estimate Clumped Platelets Plt Clumps, EDTA Large Platelets Giant Platelets Platelet Satelliting Plt Morphology Comment RBC Morphology Dimorphic RBCs Polychromasia Hypochromasia Poikilocytosis Anisocytosis Microcytosis Macrocytosis Spherocytes Pappenheimer Bodies Sickle Cells Target Cells Tear Drop Cells Ovalocytes Helmet Cells Paz-Villarreal Bodies [place] Rings [place] Cells Bite Cells Crenated Cell Elliptocytes Acanthocytes (Spur) Rouleaux Hemoglobin C Crystals Schistocytes Malaria parasites Tyree Bodies Hem Pathologist Commnt PT (12.2-14.9) Sec. INR (0.87-1.13) APTT (24.2-36.6) Sec. POC ABG pH 7.350 (7.35-7.45) POC ABG pCO2 43.3 (35-45) POC ABG HCO3 23.9 (22-26 mml/L) POC ABG Total CO2 25 (23-27mmol/L) POC ABG O2 Sat 100 POC ABG Base Excess -2 ((-2) - (+3)mmol/L) FiO2 100 % Sodium (137-145) mmol/L Potassium (3.6-5.0) mmol/L Chloride (98-107) mmol/L Carbon Dioxide (22-30) mmol/L Anion Gap mmol/L BUN (7-17) mg/dL Creatinine (0.7-1.2) mg/dL Estimated GFR ml/min BUN/Creatinine Ratio % Glucose (65-100) mg/dL POC Glucose (70-105) Lactic Acid (0.7-2.0) mmol/L Calcium (8.4-10.2) mg/dL Magnesium (1.7-2.3) mg/dL Total Bilirubin (0.1-1.2) mg/dL AST (5-40) units/L ALT (7-56) units/L Alkaline Phosphatase (35-129) units/L Total Creatine Kinase (30-135) units/L Troponin T (0.00-0.029) ng/mL Total Protein (6.3-8.2) g/dL Albumin (3.9-5) g/dL Albumin/Globulin Ratio % Triglycerides (2-149) mg/dL Cholesterol (50-199) mg/dL LDL Cholesterol Direct (50-130) mg/dL HDL Cholesterol (40-59) mg/dL Cholesterol/HDL Ratio % Urine Color (Yellow) Urine Turbidity (Clear) Urine pH (5.0-7.0) Ur Specific [place] (1.003-1.030) Urine Protein (Negative) mg/dL Urine Glucose (UA) (Negative) mg/dL Urine Ketones (Negative) mg/dL Urine Blood (Negative) Urine Nitrite (Negative) Urine Bilirubin (Negative) Urine Urobilinogen (<2.0) mg/dL Ur Leukocyte Esterase (Negative) Urine WBC (Auto) (0.0-6.0) /HPF Urine RBC (Auto) (0.0-6.0) /HPF U Epithel Cells (Auto) (0-13.0) /HPF Urine Bacteria (Auto) (Negative) /HPF Salicylates (2.8-20.0) mg/dL Acetaminophen (10.0-30.0) ug/mL Blood Type Antibody Screen - EKG Data -: EKG Interpreted by Pr EKG shows normal: sinus rhythm Rate: normal - EKG Data 06/13/18 22:36 EKG #1 shows a wide complex tachycardia, as our morphology, this is an extreme right axis deviation, question right bundle branch block, QTC prolonged, question sinus, to slow to be ventricular tachycardia, this is an abnormal EKG, but it is not consistent with ST elevation myocardial infarction. This EKG was transmitted to the sack repairer on-call, who agrees that this EKG is consistent with ST elevation myocardial infarction. EKG #2 shows resolution of wide complex tachycardia, showed a sinus tachycardia, with a left axis deviation, motion artifact, premature ventricular contractions, abnormal EKG, QTC within normal limits, EKG abnormal, but not consistent with ST elevation myocardial infarction. This EKG is also transmitted to the sack repairer on-call, who agrees that he does not meet ST elevation myocardial infarction criteria. - Radiology Data Radiology results: pending, report reviewed, image reviewed rint Report Referring Physician: SALONI KIM Patient Name: JUAN DIEGO STAUFFER Date of : 1940 Sex: Female Report Date: 2018-06-13 Report Status: Finalized Findings [facility] [address] [place] [address] XRay Report Signed Patient: JUAN DIEGO STAUFFER MR#: [id number] : 1940 Acct:[id number] Age/Sex: 78 / F ADM Date: 06/13/18 Loc: ED Attending Dr: Ordering Physician: SALONI KIM MD Date of Service: 06/13/18 Procedure(s): XR chest 1V ap Accession Number(s): [id number] cc: SALONI KIM MD Fluoro Time In Minutes: PROCEDURE: XR CHEST 1V AP TECHNIQUE: Chest radiograph single view. HISTORY: s/p tube adjustment COMPARISONS: None . FINDINGS: Heart: Normal. Mediastinum/Vessels: Normal. Lungs/Pleural space: Lungs are expanded. There are mild fibrotic changes. There are no acute infiltrates. There is no pleural effusion or pneumothorax.. Bony thorax: No acute osseous abnormality. Life support devices: There is an endotracheal tube in the distal trachea approximately 2 cm above the jenn. The NG tube is in the stomach.. IMPRESSION: The heart size is normal. Lungs are expanded. There are mild fibrotic changes. There are no acute infiltrates. There is no pleural effusion or pneumothorax. There is an endotracheal tube in the distal trachea approximately 2 cm above the jenn. The NG tube is in the stomach. This document is electronically signed by Ross Tomlinson MD., June 13 2018 08:24:46 PM ET Transcribed By: CO Dictated By: ROSS TOMLINSON MD Electronically Authenticated By: ROSS TOMLINSON MD Signed Date/Time: 06/13/182025 Noncontrast CT scan of the brain is negative for acute disease - Medical Decision Making Differential diagnosis, including but not limited to: acidosis, overdose, hyperkalemia, acute coronary syndrome, myocardial infarction Critical Care Time: Yes Critical care time in (mins) excluding proc time.: 60 Critical care attestation.: If time is entered above; I have spent that time in minutes in the direct care of this critically ill patient, excluding procedure time. ED Disposition Clinical Impression: DEVON (acute kidney injury), SIRS (systemic inflammatory response syndrome), Cardiac arrest Disposition: OP ADMIT IP TO THIS HOSP Is pt being admited?: Yes Condition: Critical
[2018-06-13 19:47] LABS: Hematocrit 33.6 % (30.3-42.9); Hemoglobin 10.9 gm/dl (10.1-14.3); Mean Corpuscular HGB Conc 32 % (30-34); Mean Corpuscular Volume 84 fl (79-97); Platelet Count 281 K/mm3 (140-440); Red Blood Count 4.02 M/mm3 (3.65-5.03)
[2018-06-13 19:58] LABS: INR 1.31 (0.87-1.13)
[2018-06-13 19:59] LABS: Partial Thromboplastin Time 38.3 Sec. (24.2-36.6)
[2018-06-13 20:10] LABS: Albumin 2.9 g/dL (3.9-5); Calcium 8.4 mg/dL (8.4-10.2)
[2018-06-13 20:21] LABS: Basophils % (Manual) 0 % (0.0-1.8); Myelocytes # (Manual) 0.4 K/mm3; Total Cells Counted 100
[2018-06-13 20:22] LABS: Anisocytosis 1+; Poikilocytosis 1+
--- NOTE | 2018-06-13 20:26 | XRay Report ---
PROCEDURE: XR CHEST 1V AP TECHNIQUE: Chest radiograph single view. HISTORY: s/p tube adjustment COMPARISONS: None . FINDINGS: Heart: Normal. Mediastinum/Vessels: Normal. Lungs/Pleural space: Lungs are expanded. There are mild fibrotic changes. There are no acute infiltr ates. There is no pleural effusion or pneumothorax.. Bony thorax: No acute osseous abnormality. Life support devices: There is an endotracheal tube in the distal trachea approximately 2 cm above th e jenn. The NG tube is in the stomach.. IMPRESSION: The heart size is normal. Lungs are expanded. There are mild fibrotic changes. There are no acute infiltrates. There is no pleu ral effusion or pneumothorax. There is an endotracheal tube in the distal trachea approximately 2 cm above the jenn. The NG tube is in the stomach. This document is electronically signed by Ross Seymour MD., June 13 2018 08:24:46 PM ET
--- NOTE | 2018-06-13 20:28 | XRay Report ---
PROCEDURE: XR CHEST 1V AP TECHNIQUE: Chest radiograph single view. HISTORY: resp artrest COMPARISONS: None . FINDINGS: Heart: Cardiac shadow is obscured due to mediastinal shift to the left. Mediastinum/Vessels: Normal. Lungs/Pleural space: There is complete atelectasis of the left lung. The right lung is clear and exp anded.. There are no pneumothoraces. Bony thorax: No acute osseous abnormality. Life support devices: Endotracheal tube is in the distal trachea approximately 1 cm above the jenn. The NG tube is in the stomach.. IMPRESSION: Cardiac shadow is obscured due to mediastinal shift to the left. There is complete atelectasis of the left lung. The right lung is clear and expanded.. There are no p neumothoraces. Endotracheal tube is in the distal trachea approximately 1 cm above the jenn. The NG tube is in the stomach... This document is electronically signed by Ross Seymour MD., June 13 2018 08:27:00 PM ET
[2018-06-13] MEDS ORDERED: HumuLIN R IV ONE (20:39)
[2018-06-13 20:44] LABS: Bacteria,Urine 1+ /HPF (Negative); Bilirubin,Urine NEG (Negative); Blood,Urine MOD (Negative); Color,Urine Straw (Yellow); Urobilinogen,Urine < 2.0 mg/dL (<2.0)
[2018-06-13] MEDS ORDERED: fentaNYL DRIP Premix 2,000 MCG/100 ML BAG IV SCH (20:45)
[2018-06-13] MEDS ORDERED: fentaNYL DRIP Premix 2,000 MCG/100 ML BAG IV ONE (20:53)
[2018-06-13 20:59] LABS: Chol/HDL Ratio 5.55 %
[2018-06-13] MEDS ORDERED: VANCOMYCIN 1,500 MG in NACL 0.9% 500 ML 500 ML IV ONE (21:45)
[2018-06-13] MEDS ORDERED: VASELINE LIP THERAPY TP PRN (22:08)
[2018-06-13] MEDS ORDERED: SUBLIMAZE IV PRN (22:08)
--- NOTE | 2018-06-13 22:15 | Cat Scan Report ---
PROCEDURE: CT HEAD/BRAIN WO CON TECHNIQUE: CT images of the head were obtained without the use of IV contrast HISTORY: cardiac arrest COMPARISONS: 03/22/2018 FINDINGS: There are bilateral chronic basal ganglia lacunar infarcts. There is stable patchy white matter low a ttenuation, compatible with chronic microvascular ischemic changes. Intracranial arteries are symmetr ic in density. There is atherosclerotic calcification. No CT evidence of intracranial mass, hemorrhag e, acute territorial infarction, or hydrocephalus. Calvarium is intact. There is bilateral maxillary sinus mucosal thickening. There is fluid in the left sphenoid sinus. Mastoids are aerated. IMPRESSION: No CT evidence of acute intracranial abnormality. This document is electronically signed by Millie Durham MD., June 13 2018 10:13:16 PM ET
[2018-06-13] MEDS ORDERED: VANCOMYCIN PHARMACY TO DOSE IV SCH (23:00)
[2018-06-13] MEDS ORDERED: SODIUM CHLORIDE FLUSH SYRINGE 10 ML IV PRN (23:05)
[2018-06-13] MEDS ORDERED: ZOFRAN IV PRN (23:05)
[2018-06-13] MEDS ORDERED: TYLENOL PO PRN (23:05)
--- NOTE | 2018-06-13 23:05 | History and Physical Report ---
History of Present Illness Date of examination: 06/13/18 History of present illness: This is a 78-year-old woman with a history of hypertension, diabetes, A. fib, chronic kidney disease was brought to the emergency room for evaluation. Family at bedside state that today she was not feeling well, complaining of nausea v omiting, abdominal pain but stated later on that the abdominal pain resolved. She saw her primary care physician and one hour later after leaving the primary care physician's office, she became unresponsive. CPR was initiated at home by the family, EMS arrived and CPS was continued in the field for approximately 25 minutes and about 10 minutes in the emergency room. She was initially hypotensive with systolic blood pressure in the 70s, central line was placed a person however the patient responded to IV fluids. Patient is intubated, having myoclonic jerks. Review of system is unobtainable, old records reviewed PAST MEDICAL HISTORY:hypertension, diabetes, A. fib, chronic kidney disease PAST SURGICAL HISTORY: Bilateral knee, hip SOCIAL HISTORY: Denies alcohol, drugs, tobacco FAMILY HISTORY: Hypertension Medications and Allergies Allergies Allergy/AdvReac Type Severity Reaction Status Date / Time No Known Allergies Allergy Unverified 11/19/12 14:52 Home Medications Medication Instructions Recorded Confirmed Last Taken Type Amiodarone [Cordarone 200 MG TAB] 200 mg PO QDAY #30 tablet 04/21/18 Unknown Rx Amoxicillin [Trimox CAP] 500 mg PO Q8H #15 capsule 04/21/18 Unknown Rx Metoprolol [Lopressor TAB] 50 mg PO TID #90 tablet 04/21/18 Unknown Rx Pantoprazole [Protonix TAB] 40 mg PO BID #30 tablet 04/21/18 Unknown Rx Active Meds: Active Medications Fentanyl (Sublimaze) 50 mcg IV Q10MIN PRN PRN Reason: ANALGESIA Hydrophilic Ointment (Vaseline Lip Therapy) 1 applic TP Q2HR PRN PRN Reason: Dry Lips Vancomycin HCl 1,500 mg/ (Sodium Chloride) 530 mls @ 333.333 mls/hr IV ONCE ONE Stop: 06/13/18 23:20 Fentanyl Citrate (Fentanyl Drip Premix) 2,000 mcg in 100 mls @ 3.75 mls/hr IV TITR HUSAM; Protocol Last Admin: 06/13/18 20:50 Dose: 2 mcg/kg/hr, 7.5 mls/hr Documented by: Exam - Physical Exam Narrative exam: General Apperance: The patient lying in bed, breathing comfortable, intubated HEENT: Normocephalic, atraumatic. Pupils equally round and reactive to light, unable to do EOM, no sclericterus or JVD or thyromegaly or nodule. , no carotid bruit, mucous membranes moist, unable to examine oral cavity, ET tube in place Heart: S1-S2, regular is rhythm Lungs: Clear to auscultation bilaterally, breathing comfortable Abdomen: Decrease bowel sounds, soft, nondistended, no organomegaly Extremities: No edema cyanosis clubbing Skin: no rash, nodule, warm and dry Neuro: Sedated, myoclonic jerks - Constitutional Vitals: Temp Pulse Resp BP Pulse Ox 94 H 25 H 116/64 92 06/13/18 22:00 06/13/18 22:00 06/13/18 22:00 06/13/18 22:00 Results - Labs CBC & Chem 7: 06/14/18 04:18 06/14/18 04:18 Labs: Abnormal lab results 06/13/18 06/13/18 06/13/18 Range/Units 19:01 19:25 19:32 WBC 20.3 H (4.5-11.0) K/mm3 MCH 27 L (28-32) pg RDW 16.0 H (13.2-15.2) % Seg Neuts % (Manual) 80.0 H (40.0-70.0) % Seg Neutrophils # Man 16.2 H (1.8-7.7) K/mm3 PT 17.1 H (12.2-14.9) Sec. INR 1.31 H (0.87-1.13) APTT 38.3 H (24.2-36.6) Sec. Chloride (98-107) mmol/L BUN (7-17) mg/dL Creatinine (0.7-1.2) mg/dL Glucose (65-100) mg/dL POC Glucose 328 H (70-105) Lactic Acid (0.7-2.0) mmol/L AST (5-40) units/L ALT (7-56) units/L Total Creatine Kinase (30-135) units/L Troponin T (0.00-0.029) ng/mL Total Protein (6.3-8.2) g/dL Albumin (3.9-5) g/dL Triglycerides (2-149) mg/dL HDL Cholesterol (40-59) mg/dL Urine pH (5.0-7.0) Urine WBC (Auto) (0.0-6.0) /HPF Salicylates (2.8-20.0) mg/dL Acetaminophen (10.0-30.0) ug/mL 06/13/18 06/13/18 06/13/18 Range/Units 19:32 19:32 19:32 WBC (4.5-11.0) K/mm3 MCH (28-32) pg RDW (13.2-15.2) % Seg Neuts % (Manual) (40.0-70.0) % Seg Neutrophils # Man (1.8-7.7) K/mm3 PT (12.2-14.9) Sec. INR (0.87-1.13) APTT (24.2-36.6) Sec. Chloride 88.3 L (98-107) mmol/L BUN 18 H (7-17) mg/dL Creatinine 2.0 H (0.7-1.2) mg/dL Glucose 379 H (65-100) mg/dL POC Glucose (70-105) Lactic Acid 11.90 H* (0.7-2.0) mmol/L AST 130 H (5-40) units/L ALT 57 H (7-56) units/L Total Creatine Kinase 184 H (30-135) units/L Troponin T 0.032 H (0.00-0.029) ng/mL Total Protein 6.2 L (6.3-8.2) g/dL Albumin 2.9 L (3.9-5) g/dL Triglycerides 152 H (2-149) mg/dL HDL Cholesterol 27 L (40-59) mg/dL Urine pH (5.0-7.0) Urine WBC (Auto) (0.0-6.0) /HPF Salicylates < 0.3 L (2.8-20.0) mg/dL Acetaminophen (10.0-30.0) ug/mL 06/13/18 06/13/18 Range/Units 19:32 20:14 WBC (4.5-11.0) K/mm3 MCH (28-32) pg RDW (13.2-15.2) % Seg Neuts % (Manual) (40.0-70.0) % Seg Neutrophils # Man (1.8-7.7) K/mm3 PT (12.2-14.9) Sec. INR (0.87-1.13) APTT (24.2-36.6) Sec. Chloride (98-107) mmol/L BUN (7-17) mg/dL Creatinine (0.7-1.2) mg/dL Glucose (65-100) mg/dL POC Glucose (70-105) Lactic Acid (0.7-2.0) mmol/L AST (5-40) units/L ALT (7-56) units/L Total Creatine Kinase (30-135) units/L Troponin T (0.00-0.029) ng/mL Total Protein (6.3-8.2) g/dL Albumin (3.9-5) g/dL Triglycerides (2-149) mg/dL HDL Cholesterol (40-59) mg/dL Urine pH 8.0 H (5.0-7.0) Urine WBC (Auto) 25.0 H (0.0-6.0) /HPF Salicylates (2.8-20.0) mg/dL Acetaminophen 7.3 L (10.0-30.0) ug/mL - Imaging and Cardiology Chest x-ray: report reviewed CT scan - chest: report reviewed Assessment and Plan Assessment Respiratory failure Cardiac arrest Abnormal cardiac enzymes Sepsis UTI Hypotension Myoclonic jerks Diabetes A. fib Plan Admit to medicine Start IV fluid, continue sedation with fentanyl Check cardiac enzymes, echo, consult cardiology Continue Vanco, start Zosyn, follow cultures Discussed with daughter CT abdomen and pelvis, she declined Check fingersticks Prognosis poor, patient exhibiting sign of anoxic brain injury, discussed with family Family has not made the patient DO NOT RESUSCITATE The high probability of a clinically significant, sudden or life threatening deterioration of the [CV, GI, respiratory] system(s) required my full and direct attention, intervention and personal management. The aggregate critical care time was [35 ] minutes. This time is in addition to time spent performing reported procedures but includes the following: x] Data Review and interpretation [x] Patient assessment and monitoring of vital signs [x] Documentation [x] Medication orders and management
[2018-06-13 23:27] LABS: Calcium 7.6 mg/dL (8.4-10.2)
[2018-06-13] MEDS ORDERED: NACL 0.9% 1000 ML 1,000 ML IV SCH (23:45)
[2018-06-13] MEDS ORDERED: VANCOMYCIN/NS 1 GM/250 ML 1 GM/250 ML BAG IV SCH (23:45)
[2018-06-14] MEDS ORDERED: HumuLIN R ONE (00:21)
[2018-06-14 00:23] LABS: Creatine Kinase MB 16.1 ng/mL (0.0-4.0)
[2018-06-14 04:07] VITALS: BP 107/61
[2018-06-14 04:30] LABS: Hematocrit 32.9 % (30.3-42.9); Hemoglobin 10.7 gm/dl (10.1-14.3); Mean Corpuscular HGB Conc 33 % (30-34); Mean Corpuscular Volume 83 fl (79-97); Platelet Count 253 K/mm3 (140-440); Red Blood Count 3.96 M/mm3 (3.65-5.03); Red Cell Distribution Width 15.9 % (13.2-15.2)
[2018-06-14] MEDS ORDERED: CORDARONE 150 MG in D5W 100 ML IV ONE (04:58)
[2018-06-14] MEDS ORDERED: ADRENALIN ONE (05:00)
[2018-06-14 05:03] LABS: Calcium 7.8 mg/dL (8.4-10.2)
[2018-06-14 05:44] LABS: Creatine Kinase MB 17.7 ng/mL (0.0-4.0)
[2018-06-14 05:53] LABS: Band Neutrophils # (Manual) 0.8 K/mm3; Basophils % (Manual) 0 % (0.0-1.8); Eosinophils % (Manual) 0 % (0.0-4.3); Total Cells Counted 100
[2018-06-14 05:54] LABS: Anisocytosis 1+; Large Platelets Few; Platelet Estimate Consistent w Auto
[2018-06-14] MEDS ORDERED: ZOSYN/NS 3.375GM/50ML 3.375 GM/50 ML BAG IV SCH (06:00)
--- NOTE | 2018-06-14 06:39 | Event Note ---
Date: 06/14/18 I was called to pt's room because the pt is condition was declining, she was in vtach, Dr Hackett had also aware and had giving giving orders for amioderone 150 mg to be infused. On arriving to the ICU pt was in V-fib, her hear rate was 28 and slowly decreased to asystole within 25 mins. When the pt's remain in asystole, pt's daughter was called to reports the pt's condition which was expected by family. Pt's was pronounced at 0527 am.
[2018-06-14] MEDS ORDERED: LOVENOX SUB-Q SCH (10:00)
[2018-06-14] MEDS ORDERED: SODIUM CHLORIDE FLUSH SYRINGE 10 ML IV SCH (10:00)
--- NOTE | 2018-08-02 07:30 | Discharge Summary ---
TYPE OF DISCHARGE: . FINAL DISCHARGE DIAGNOSES: 1. Cardiac arrest. 2. Respiratory failure, acute. 3. Sepsis. 4. Urinary tract infection. 5. Abnormal cardiac enzymes. 6. Diabetes. 7. Atrial fibrillation. HOSPITAL COURSE: A 78-year-old woman with a history of hypertension, diabetes, AFib, chronic kidney disease, was brought to the Emergency Room for further evaluation. Family states the patient complained of abdominal pain that had resolved and in general was not feeling well. After seeing her primary care physician, an hour later, the patient became unresponsive. CPR was initiated by the family at home. In the Emergency Room, CPR was continued for an additional 25 minutes in the field and 10 minutes in the Emergency Room. The patient became hypotensive with systolic blood pressures in the 70s. She responded to IV fluids. She was having myoclonic jerks. She was admitted to the hospital, started on vancomycin, Zosyn. Cardiac enzymes and echo were ordered and she was continued on sedation. CAT scan showed that the patient exhibits signs of anoxic brain injury. This was discussed with the family and they made her a DNR. The patient at 05:27. Please refer to the H and P for details. JOB# [id number] AES/NTS
== END 2018-06-14 05:25 | DRG 871 ==
LOC: ED 18:47 → CC1 23:05
PROVIDERS: ADMIT Internal Medicine; ATTEND Internal Medicine
PROC: 5A12012 Performance of Cardiac Output, Single, Manual (ICD-10-PCS; principal; 2018-06-13)
PROC: 5A1935Z Respiratory Ventilation, Less than 24 Consecutive Hours (ICD-10-PCS; 2018-06-13)
PROC: 0BH17EZ Insertion of Endotracheal Airway into Trachea, Via Natural or Artificial Opening (ICD-10-PCS; 2018-06-13)
PROC: 06HM33Z Insertion of Infusion Device into Right Femoral Vein, Percutaneous Approach (ICD-10-PCS; 2018-06-13)
PROC: B54BZZA Ultrasonography of Right Lower Extremity Veins, Guidance (ICD-10-PCS; 2018-06-13)
PROC: 4A033R1 Measurement of Arterial Saturation, Peripheral, Percutaneous Approach (ICD-10-PCS; 2018-06-14)
DX: A41.9 Sepsis, unspecified organism (principal); J96.00 Acute respiratory failure, unspecified whether with hypoxia or hypercapnia; I47.2 Ventricular tachycardia; N39.0 Urinary tract infection, site not specified; N17.9 Acute kidney failure, unspecified; I46.9 Cardiac arrest, cause unspecified; I12.9 Hypertensive chronic kidney disease with stage 1 through stage 4 chronic kidney disease, or unspecified chronic kidney disease; I49.01 Ventricular fibrillation; E11.22 Type 2 diabetes mellitus with diabetic chronic kidney disease; I48.91 Unspecified atrial fibrillation; N18.9 Chronic kidney disease, unspecified; G25.3 Myoclonus; M19.90 Unspecified osteoarthritis, unspecified site; F03.90 Unspecified dementia, unspecified severity, without behavioral disturbance, psychotic disturbance, mood disturbance, and anxiety; Z96.652 Presence of left artificial knee joint; Z82.49 Family history of ischemic heart disease and other diseases of the circulatory system; Z79.899 Other long term (current) drug therapy
CPT/HCPCS: 36415; 36600; 70450; 71045; 80048; 80053; 80061; 80320; 81001; 82140; 82550; 82553; 82803; 82962; 83735; 84484; 85007; 85025; 85610; 85730; 86850; 86900; 86901; 87040; 87086; 93005; 93010; 94002; G0378; G0480; J0171; J0282; J0692; J1815; J1956; J2543; J3010; J3370; J7030; J7040